=== PATIENT | female | born 1985 | race Caucasian/White ===

== ENCOUNTER 2017-12-04 11:13 | Inpatient (IN) | payer OTHER ==
[2017-12-04 11:30] VITALS: BMI 25.9
--- NOTE | 2017-12-04 12:53 | HP ---
COWS - Scale Resting Pulse: 0= NM 80 or Below Sweatin= Chills/Flushing Restless Observation: 3= Extraneous Movement Pupil Size: 1= Pupils >than Normal Bone or Joint Aches: 2= Severe Diffuse Aches Runny Nose/ Eye Tearin= Nasal Congestion GI Upset > 30mins: 3= Vomiting/Diarrhea Tremor Observation: 2= Slight Tremor Visible Yawning Observation: 2= >3x During Session Anxiety or Irritability: 2=Irritable/Anxious Goose Flesh Skin: 0=Smooth Skin COWS Score: 17 CIWA Score - CIWA Score Nausea/Vomitin Muscle Tremors: 3 Anxiety: 2 Agitation: 2 Paroxysmal Sweats: 1-Minimal Palms Moist Orientation: 0-Oriented Tacttile Disturbances: 1-Very Mild Itch/Numbness Auditory Disturbances: 1-Very Mild Visual Disturbances: 0-None Headache: 2-Mild CIWA-Ar Total Score: 15 Admission ROS [facility] - HPI Chief Complaint: i need help eot stop using heroin and alcohol Allergies/Adverse Reactions: Allergies Allergy/AdvReac Type Severity Reaction Status Date / Time Fish Containing Products Allergy Severe Difficulty Verified 12/04/17 11:30 Breathing History of Present Illness: this 32 years old female with heroin and alcohol dependence,seeking detox, withdrawal symptom,last detox 2017 completed multiple admissions in the past ptsd,anxiety,depression nicotine dependence seizure last 2012 longest period of sobriety 5 years weight loss history of pulmonary embolism ,no medication - Ebola screening Have you traveled outside of the country in the last 21 days: No Have you had contact with anyone from an Ebola affected area: No Have you been sick,other than usual withdrawal symptoms: No Do you have a fever: No - Review of Systems Constitutional: Chills, Loss of Appetite, Malaise, Night Sweats, Changes in sleep, Unintentional Wgt. Loss EENT: reports: Tearing, Nose Congestion Respiratory: reports: No Symptoms reported Cardiac: reports: No Symptoms Reported GI: reports: Diarrhea, Nausea, Vomiting, Abdominal cramping : reports: No Symptoms Reported Musculoskeletal: reports: Back Pain, Joint Pain, Muscle Pain Integumentary: reports: Dryness Neuro: reports: Headache, Tremors Endocrine: reports: No Symptoms Reported Hematology: reports: No Symptoms Reported Psychiatric: reports: No Sypmtoms Reported, Judgement Intact, Mood/Affect Appropiate, Orientated x3, Anxious, Depressed Patient History - Patient Medical History Hx Anemia: No Hx Asthma: No Hx Chronic Obstructive Pulmonary Disease (COPD): No Hx Cardiac Disorders: No Hx Hypertension: No Hx Seizures: Yes (2002) Hx Dementia: No Hx Diabetes: No Hx Gastrointestinal Disorders: No Hx Genitourinary Disorders: No Hx Sexually Transmitted Disorders: Yes (BACTERIAL VAGINOSIS 2006) Hx Renal Disease (ESRD): No Hx Thyroid Disease: No Hx Human Immunodeficiency Virus (HIV): No (last 2016 negative) Hx Hepatitis C: No Hx Depression: Yes Hx Suicide Attempt: Yes (OVERDOSE IN 2011) Hx Schizophrenia: No Other Medical History: no suicidal,no homicidal, - Patient Surgical History Past Surgical History: No Hx Neurologic Surgery: No Hx Cataract Extraction: No Hx Cardiac Surgery: No Hx Lung Surgery: Yes (HISTORY OF PULMONARY EMBOLISM 2011) Hx Breast Surgery: No Hx Breast Biopsy: No Hx Abdominal Surgery: No Hx Appendectomy: No Hx Cholecystectomy: No Hx Genitourinary Surgery: No Hx Section: No Hx Orthopedic Surgery: Yes (RIGHT FEMORAL FRACTURE 1991at age of 65 years old) Anesthesia Reaction: No - PPD History Previous Implant?: No Implanted On Prior [facility] Admission?: No PPD to be Administered?: Yes - Reproductive History Patient is a Female of Child Bearing Age (11 -55 yrs old): Yes Last Menstrual Period: 11/29/17 Patient : No - Smoking Cessation Smoking history: Current every day smoker Have you smoked in the past 12 months: Yes Aproximately how many cigarettes per day: 10 Cigars Per Day: 0 Hx Chewing Tobacco Use: No Initiated information on smoking cessation: Yes 'Breaking Loose' booklet given: 12/04/17 - Substance & Tx. History Hx Alcohol Use: Yes Hx Substance Use: Yes Substance Use Type: Alcohol, Cocaine, Heroin, Marijuana Hx Substance Use Treatment: Yes (02/23 [facility] completed) - Substances Abused Heroin Route: Inhalation Frequency: Daily Amount used: 8-10 bags Age of first use: 25 Date of Last Use: 12/04/17 Cocaine Route: Inhalation Frequency: 3-6 times per week Amount used: $20 BAG Age of first use: 18 Date of Last Use: 12/02/17 Marijuana/Hashish Route: Smoking Frequency: 1-3 times last 30 days Amount used: 1 JOINT Age of first use: 15 Date of Last Use: 11/27/17 Alcohol Route: Oral Frequency: 3-6 times per week Amount used: 1 PINT OF RUM Age of first use: 13 Date of Last Use: 12/02/17 Family Disease History - Family Disease History Family History: Denies Admission Physical Exam [facility] - Vital Signs Vital Signs: Vital Signs - 24 hr 12/04/17 11:25 Temperature 98.9 F Pulse Rate 62 Respiratory 19 Rate Blood Pressure 103/71 - Physical General Appearance: Yes: Moderate Distress, Tremorous, Irritable, Sweating, Anxious HEENTM: Yes: Normal ENT Inspection, KARL, Pharynx Normal Respiratory: Yes: Lungs Clear, Normal Breath Sounds, No Respiratory Distress Neck: Yes: Within Normal Limits, Supple, Trachea in good position Breast: Yes: Breast Exam Deferred Cardiology: Yes: Within Normal Limits, Regular Rhythm, Regular Rate, S1, S2 Abdominal: Yes: Within Normal Limits, Normal Bowel Sounds, Flat, Soft Genitourinary: Yes: Within Normal Limits Back: Yes: Within Normal Limits, Normal Inspection, Muscle Spasm Musculoskeletal: Yes: full range of Motion, Back pain, Muscle Pain Extremities: Yes: Within Normal Limits, Normal Range of Motion, Tremors Neurological: Yes: Within Normal Limits, environmental services manager II-XII NML intact, Alert, Motor Strength 5/5 Integumentary: Yes: Dry Lymphatic: Yes: Within Normal Limits - Diagnostic (1) Opioid dependence with withdrawal Current Visit: Yes Status: Acute (2) Cocaine dependence Current Visit: Yes Status: Acute (3) Alcohol dependence with uncomplicated withdrawal Current Visit: Yes Status: Acute (4) Cannabis abuse Current Visit: Yes Status: Acute (5) Nicotine dependence Current Visit: Yes Status: Acute (6) Anxiety and depression Current Visit: Yes Status: Acute (7) PTSD (post-traumatic stress disorder) Current Visit: Yes Status: Acute (8) History of pulmonary embolism Current Visit: Yes Status: Acute (9) Weight loss Current Visit: Yes Status: Acute Cleared for Admission [facility] - Detox or Rehab [facility] Level of Care: Medically Managed Detox Regimen/Protocol: Methadone/Librium [facility] Breath Alcohol Content Breath Alcohol Content: 0 Urine Pregancy Test - Result Urine Test Results: Negative- NO Line Present Urine Drug Screen - Results Drug Screen Negative: No Urine Drug Screen Results: KIKE-Cocaine, OPI-Opiates
[2017-12-04] MEDS ORDERED: MAGNESIUM HYDROX 2400MG/30ML ORAL SUSPENSION 30 ML CUP PO PRN (13:11)
[2017-12-04] MEDS ORDERED: MAGNESIUM CITRATE 300 ML BOTTLE PO PRN (13:11)
[2017-12-04] MEDS ORDERED: MAG HYDROX/AL HYDROX/SIMETH 30 ML UNIT-DOSE CUP PO PRN (13:11)
[2017-12-04] MEDS ORDERED: guaiFENesin/D-METHORPHAN HB 10 ML UNIT-DOSE CUPS PO PRN (13:11)
[2017-12-04] MEDS ORDERED: IBUPROFEN 400 MG TABLET (FP) PO PRN (13:11)
[2017-12-04] MEDS ORDERED: chlordiazePOXIDE HCL 25 MG CAPSULE PO PRN (13:11)
[2017-12-04] MEDS ORDERED: P-EPHED 60MG/TRIPROLIDI 2.5MG TABLET PO PRN (13:11)
[2017-12-04] MEDS ORDERED: MENTHOL/PHENOL 1 EACH UD MM PRN (13:11)
[2017-12-04] MEDS ORDERED: LOPERAMIDE HCL 2 MG CAPSULE PO PRN (13:11)
[2017-12-04] MEDS ORDERED: METHADONE HCL 10 MG TABLET (FOR DETOX USE ONLY) PO ONE ×2 (14:10→23:00)
[2017-12-04] MEDS: chlordiazePOXIDE HCL 25 MG CAPSULE PO SCH ×2 (17:03→22:19)
[2017-12-04 17:26] LABS: URINE APPEARANCE SLCLOUDY; URINE BILIRUBIN NEGATIVE (<2.0 mg/dL); URINE COLOR YELLOW; URINE GLUCOSE (UA) NEGATIVE (NEGATIVE); URINE KETONE NEGATIVE (NEGATIVE); URINE LEUK ESTERASE NEGATIVE (NEGATIVE); URINE NITRITE NEGATIVE (NEGATIVE); URINE PROTEIN NEGATIVE (NEGATIVE); URINE UROBILINOGEN NEGATIVE mg/dL (0.2-1.0)
[2017-12-04] MEDS: MELATONIN 5 MG TABLETS PO PRN (22:19)
[2017-12-04] MEDS: cloNIDine HCL 0.1 MG TABLET PO SCH (22:19)
[2017-12-04] MEDS: THIAMINE HCL 100 MG TABLET (FP) PO SCH (22:19)
[2017-12-05] MEDS: chlordiazePOXIDE HCL 25 MG CAPSULE PO SCH ×4 (05:47→22:14)
[2017-12-05] MEDS ORDERED: METHADONE HCL 10 MG TABLET (FOR DETOX USE ONLY) PO SCH (10:00)
[2017-12-05 10:09] LABS: HEMOGLOBIN 13.9 GM/dL (10.7-15.3); MCHC 33.3 g/dl (32.0-36.0); RDW 13.5 % (11.6-15.6)
[2017-12-05 10:12] LABS: HEMATOCRIT 41.9 % (32.4-45.2); MCH 31.9 pg (25.7-33.7); MEAN CELL VOLUME 95.8 fl (80-96); MEAN PLT VOLUME 9.3 fl (7.5-11.1); PLATELET COUNT 302 K/MM3 (134-434); RBC 4.37 M/mm3 (3.60-5.2); WHITE BLOOD COUNT 6.5 K/mm3 (4.0-10.0)
[2017-12-05 10:28] LABS: ALBUMIN 3.7 g/dl (3.4-5.0); ALK PHOS 92 U/L (45-117); ANION GAP 9 MMOL/L (8-16); BILIRUBIN,TOTAL 0.2 mg/dL (0.2-1); BLOOD UREA NITROGEN 10 mg/dL (7-18); CHLORIDE 106 mmol/L (98-107); CO2 25 mmol/L (21-32); CREATININE 0.6 mg/dL (0.55-1.3); GLUCOSE,RANDOM 90 mg/dL (74-106); POTASSIUM 4.3 mmol/L (3.5-5.1); SGOT/AST 16 U/L (15-37); SGPT/ALT 24 U/L (13-61); SODIUM 140 mmol/L (136-145); TOT PROT 7.3 g/dl (6.4-8.2)
[2017-12-05] MEDS: PRENATAL VITAMINS W/ FOLIC ACID TABLET (FP) PO SCH (10:45)
[2017-12-05] MEDS: cloNIDine HCL 0.1 MG TABLET PO SCH ×2 (10:45→22:14)
--- NOTE | 2017-12-05 11:14 | EKG ---
Test Reason : Blood Pressure : / mmHG Vent. Rate : 063 BPM Atrial Rate : 063 BPM P-R Int : 122 ms QRS Dur : 086 ms QT Int : 410 ms P-R-T Axes : 073 065 039 degrees QTc Int : 419 ms NORMAL SINUS RHYTHM RIGHT ATRIAL ENLARGEMENT BORDERLINE ECG NO PREVIOUS ECGS AVAILABLE Confirmed by EARNESTINE MONZON, GAVIN ([id number]) on 12/05/2017 11:14:23 AM Referred By: Confirmed By:GAVIN COLBY MD
[2017-12-05] MEDS ORDERED: PNEUMOC 13-VAL CONJ-DIP CRM/PF 0.5 ML DISP.SYRIN IM ONE (12:00)
[2017-12-05] MEDS ORDERED: FLU VACCINE QUAD 60 MCG/0.5 ML (MDV 18-19) IM ONE (12:00)
[2017-12-05] MEDS ORDERED: PNEUMOCOCCAL 23 VACCINE 0.5 ML VIAL IM ONE (12:00)
--- NOTE | 2017-12-05 12:10 | PN ---
[facility] CIWA - CIWA Score Nausea/Vomitin-No Nausea/No Vomiting Muscle Tremors: 4-Moderate,w/Arms Extend Anxiety: 3 Agitation: 3 Paroxysmal Sweats: 3 Orientation: 0-Oriented Tacttile Disturbances: 0-None Auditory Disturbances: 0-None Visual Disturbances: 0-None Headache: 0-None Present CIWA-Ar Total Score: 13 [facility] COWS - Scale Resting Pulse: 0= AR 80 or Below Sweatin=Flushed/Facial Moisture Restless Observation: 1= Difficult to Sit Still Pupil Size: 0= Normal to Room Light Bone or Joint Aches: 2= Severe Diffuse Aches Runny Nose/ Eye Tearin= Runny Nose/Eyes GI Upset > 30mins: 2= Nausea/Diarrhea Tremor Observation of Outstretched Hands: 2= Slight Tremor Visible Yawning Observation: 2= >3x During Session Anxiety or Irritability: 2=Irritable/Anxious Goose Flesh Skin: 0=Smooth Skin COWS Score: 15 [facility] Progress Note (SOAP) Subjective: agitation sweats body aches interrupted sleep irritable nausea Objective: 12/05/17 12:09 Vital Signs Temperature 97.3 F L 12/05/17 09:35 Pulse Rate 57 L 12/05/17 09:35 Respiratory Rate 16 12/05/17 09:35 Blood Pressure 107/73 12/05/17 09:35 O2 Sat by Pulse Oximetry (%) Laboratory Tests 12/04/17 12/05/17 12/05/17 15:00 06:00 06:00 WBC 6.5 RBC 4.37 Hgb 13.9 Hct 41.9 MCV 95.8 MCH 31.9 MCHC 33.3 RDW 13.5 Plt Count 302 MPV 9.3 Sodium 140 Potassium 4.3 Chloride 106 Carbon Dioxide 25 Anion Gap 9 BUN 10 Creatinine 0.6 Creat Clearance w eGFR > 60 Random Glucose 90 Calcium 9.0 Total Bilirubin 0.2 AST 16 ALT 24 Alkaline Phosphatase 92 Total Protein 7.3 Albumin 3.7 Urine Color Yellow Urine Appearance Slcloudy Urine pH 5.0 Ur Specific [place] 1.017 Urine Protein Negative Urine Glucose (UA) Negative Urine Ketones Negative Urine Blood Negative Urine Nitrite Negative Urine Bilirubin Negative Urine Urobilinogen Negative Ur Leukocyte Esterase Negative aaox3 ambulating no acute distress Assessment: 12/05/17 12:09 withdrawal sx Plan: continue detox increase fluids
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
[2017-12-05] MEDS: SERTRALINE HCL 25 MG TABLET (FP) PO SCH (13:42)
[2017-12-05] MEDS: CYCLOBENZAPRINE HCL 10 MG TABLET (FP) PO PRN (15:00)
[2017-12-05] MEDS: QUEtiapine FUMARATE 50 MG TABLET PO SCH (22:14)
[2017-12-05] MEDS: THIAMINE HCL 100 MG TABLET (FP) PO SCH (22:14)
[2017-12-06] MEDS: chlordiazePOXIDE HCL 25 MG CAPSULE PO SCH ×2 (06:04→10:38)
[2017-12-06] MEDS: METHADONE HCL 5 MG TABLET (FOR DETOX USE ONLY) PO SCH (10:37)
[2017-12-06] MEDS: PRENATAL VITAMINS W/ FOLIC ACID TABLET (FP) PO SCH (10:38)
[2017-12-06] MEDS: SERTRALINE HCL 25 MG TABLET (FP) PO SCH (10:38)
[2017-12-06] MEDS: cloNIDine HCL 0.1 MG TABLET PO SCH ×2 (10:38→22:19)
--- NOTE | 2017-12-06 14:34 | PN ---
[facility] CIWA - CIWA Score Nausea/Vomitin-Mild Nausea/No Vomiting Muscle Tremors: 2 Anxiety: 3 Agitation: 3 Paroxysmal Sweats: 2 Orientation: 0-Oriented Tacttile Disturbances: 1-Very Mild Itch/Numbness Auditory Disturbances: 0-None Visual Disturbances: 0-None Headache: 0-None Present CIWA-Ar Total Score: 12 [facility] COWS - Scale Resting Pulse: 1= HI 81-100 Sweatin= Chills/Flushing Restless Observation: 1= Difficult to Sit Still Pupil Size: 0= Normal to Room Light Bone or Joint Aches: 1= Mild Discomfort Runny Nose/ Eye Tearin= Runny Nose/Eyes GI Upset > 30mins: 1= Stomach Cramp Tremor Observation of Outstretched Hands: 1= Tremor [place], Not Seen Yawning Observation: 2= >3x During Session Anxiety or Irritability: 2=Irritable/Anxious Goose Flesh Skin: 0=Smooth Skin COWS Score: 12 [facility] Progress Note (SOAP) Subjective: abdominal cramps, sweats, chills, constipation, last BM three days ago. Objective: 12/06/17 14:32 Vital Signs Temperature 98.2 F 12/06/17 13:22 Pulse Rate 83 12/06/17 13:22 Respiratory Rate 18 12/06/17 13:22 Blood Pressure 103/65 12/06/17 13:22 O2 Sat by Pulse Oximetry (%) Laboratory Last Values WBC 6.5 K/mm3 (4.0-10.0) 12/05/17 06:00 RBC 4.37 M/mm3 (3.60-5.2) 12/05/17 06:00 Hgb 13.9 GM/dL (10.7-15.3) 12/05/17 06:00 Hct 41.9 % (32.4-45.2) 12/05/17 06:00 MCV 95.8 fl (80-96) 12/05/17 06:00 MCH 31.9 pg (25.7-33.7) 12/05/17 06:00 MCHC 33.3 g/dl (32.0-36.0) 12/05/17 06:00 RDW 13.5 % (11.6-15.6) 12/05/17 06:00 Plt Count 302 K/MM3 (134-434) 12/05/17 06:00 MPV 9.3 fl (7.5-11.1) 12/05/17 06:00 Sodium 140 mmol/L (136-145) 12/05/17 06:00 Potassium 4.3 mmol/L (3.5-5.1) 12/05/17 06:00 Chloride 106 mmol/L (98-107) 12/05/17 06:00 Carbon Dioxide 25 mmol/L (21-32) 12/05/17 06:00 Anion Gap 9 MMOL/L (8-16) 12/05/17 06:00 BUN 10 mg/dL (7-18) 12/05/17 06:00 Creatinine 0.6 mg/dL (0.55-1.3) 12/05/17 06:00 Creat Clearance w eGFR > 60 (>60) 12/05/17 06:00 Random Glucose 90 mg/dL (74-106) 12/05/17 06:00 Calcium 9.0 mg/dL (8.5-10.1) 12/05/17 06:00 Total Bilirubin 0.2 mg/dL (0.2-1) 12/05/17 06:00 AST 16 U/L (15-37) 12/05/17 06:00 ALT 24 U/L (13-61) 12/05/17 06:00 Alkaline Phosphatase 92 U/L (45-117) 12/05/17 06:00 Total Protein 7.3 g/dl (6.4-8.2) 12/05/17 06:00 Albumin 3.7 g/dl (3.4-5.0) 12/05/17 06:00 Urine Color Yellow 12/04/17 15:00 Urine Appearance Slcloudy 12/04/17 15:00 Urine pH 5.0 (5.0-8.0) 12/04/17 15:00 Ur Specific [place] 1.017 (1.001-1.035) 12/04/17 15:00 Urine Protein Negative (NEGATIVE) 12/04/17 15:00 Urine Glucose (UA) Negative (NEGATIVE) 12/04/17 15:00 Urine Ketones Negative (NEGATIVE) 12/04/17 15:00 Urine Blood Negative (NEGATIVE) 12/04/17 15:00 Urine Nitrite Negative (NEGATIVE) 12/04/17 15:00 Urine Bilirubin Negative (<2.0 mg/dL) 12/04/17 15:00 Urine Urobilinogen Negative mg/dL (0.2-1.0) 12/04/17 15:00 Ur Leukocyte Esterase Negative (NEGATIVE) 12/04/17 15:00 RPR Titer Nonreactive (NONREACTIVE) 12/05/17 06:00 Assessment: 12/06/17 14:33 Aox3 no distress, anxious no adventitious breath sounds ABD non-tender non-distended full ROM ambulating in the unit withdrawal sx constipation Plan: increase po fluids ambulate MOM continue detox continue to monitor
[2017-12-06] MEDS: ACETAMINOPHEN 325 MG TABLET (FP) PO PRN (17:18)
[2017-12-06] MEDS: chlordiazePOXIDE 5 MG CAPSULE PO SCH ×2 (17:18→22:19)
[2017-12-06] MEDS: CYCLOBENZAPRINE HCL 10 MG TABLET (FP) PO PRN (22:19)
[2017-12-06] MEDS: THIAMINE HCL 100 MG TABLET (FP) PO SCH (22:20)
[2017-12-06] MEDS: MELATONIN 5 MG TABLETS PO PRN (22:20)
[2017-12-06] MEDS: QUEtiapine FUMARATE 50 MG TABLET PO SCH (22:20)
[2017-12-07] MEDS: chlordiazePOXIDE 5 MG CAPSULE PO SCH ×2 (07:18→10:30)
[2017-12-07] MEDS: SERTRALINE HCL 25 MG TABLET (FP) PO SCH (10:30)
[2017-12-07] MEDS: METHADONE HCL 5 MG TABLET (FOR DETOX USE ONLY) PO SCH (10:30)
[2017-12-07] MEDS: cloNIDine HCL 0.1 MG TABLET PO SCH ×2 (10:30→22:23)
[2017-12-07] MEDS: PRENATAL VITAMINS W/ FOLIC ACID TABLET (FP) PO SCH (10:30)
--- NOTE | 2017-12-07 14:10 | PN ---
[facility] Progress Note (SOAP) Subjective: tremor sweat gi distress trouble sleep at night restlessness body ache Objective: 12/07/17 14:09 Vital Signs Temperature 97.9 F 12/07/17 11:19 Pulse Rate 68 12/07/17 11:19 Respiratory Rate 16 12/07/17 11:19 Blood Pressure 103/68 12/07/17 11:19 O2 Sat by Pulse Oximetry (%) Laboratory Last Values WBC 6.5 K/mm3 (4.0-10.0) 12/05/17 06:00 RBC 4.37 M/mm3 (3.60-5.2) 12/05/17 06:00 Hgb 13.9 GM/dL (10.7-15.3) 12/05/17 06:00 Hct 41.9 % (32.4-45.2) 12/05/17 06:00 MCV 95.8 fl (80-96) 12/05/17 06:00 MCH 31.9 pg (25.7-33.7) 12/05/17 06:00 MCHC 33.3 g/dl (32.0-36.0) 12/05/17 06:00 RDW 13.5 % (11.6-15.6) 12/05/17 06:00 Plt Count 302 K/MM3 (134-434) 12/05/17 06:00 MPV 9.3 fl (7.5-11.1) 12/05/17 06:00 Sodium 140 mmol/L (136-145) 12/05/17 06:00 Potassium 4.3 mmol/L (3.5-5.1) 12/05/17 06:00 Chloride 106 mmol/L (98-107) 12/05/17 06:00 Carbon Dioxide 25 mmol/L (21-32) 12/05/17 06:00 Anion Gap 9 MMOL/L (8-16) 12/05/17 06:00 BUN 10 mg/dL (7-18) 12/05/17 06:00 Creatinine 0.6 mg/dL (0.55-1.3) 12/05/17 06:00 Creat Clearance w eGFR > 60 (>60) 12/05/17 06:00 Random Glucose 90 mg/dL (74-106) 12/05/17 06:00 Calcium 9.0 mg/dL (8.5-10.1) 12/05/17 06:00 Total Bilirubin 0.2 mg/dL (0.2-1) 12/05/17 06:00 AST 16 U/L (15-37) 12/05/17 06:00 ALT 24 U/L (13-61) 12/05/17 06:00 Alkaline Phosphatase 92 U/L (45-117) 12/05/17 06:00 Total Protein 7.3 g/dl (6.4-8.2) 12/05/17 06:00 Albumin 3.7 g/dl (3.4-5.0) 12/05/17 06:00 Urine Color Yellow 12/04/17 15:00 Urine Appearance Slcloudy 12/04/17 15:00 Urine pH 5.0 (5.0-8.0) 12/04/17 15:00 Ur Specific [place] 1.017 (1.001-1.035) 12/04/17 15:00 Urine Protein Negative (NEGATIVE) 12/04/17 15:00 Urine Glucose (UA) Negative (NEGATIVE) 12/04/17 15:00 Urine Ketones Negative (NEGATIVE) 12/04/17 15:00 Urine Blood Negative (NEGATIVE) 12/04/17 15:00 Urine Nitrite Negative (NEGATIVE) 12/04/17 15:00 Urine Bilirubin Negative (<2.0 mg/dL) 12/04/17 15:00 Urine Urobilinogen Negative mg/dL (0.2-1.0) 12/04/17 15:00 Ur Leukocyte Esterase Negative (NEGATIVE) 12/04/17 15:00 RPR Titer Nonreactive (NONREACTIVE) 12/05/17 06:00 lab noted Assessment: 12/07/17 14:10 withdrawal sx Plan: continue detox
[2017-12-07] MEDS: hydrOXYzine PAMOATE 50 MG CAPSULE (FP) PO PRN (14:29)
[2017-12-07] MEDS: chlordiazePOXIDE HCL 10 MG CAPSULE PO SCH ×2 (17:44→22:23)
[2017-12-07] MEDS: CYCLOBENZAPRINE HCL 10 MG TABLET (FP) PO PRN (22:23)
[2017-12-07] MEDS: QUEtiapine FUMARATE 50 MG TABLET PO SCH (22:24)
[2017-12-07] MEDS: MELATONIN 5 MG TABLETS PO PRN (22:24)
[2017-12-07] MEDS: THIAMINE HCL 100 MG TABLET (FP) PO SCH (22:24)
[2017-12-08] MEDS: chlordiazePOXIDE HCL 10 MG CAPSULE PO SCH ×2 (06:30→10:24)
[2017-12-08] MEDS ORDERED: METHADONE HCL 10 MG TABLET (FOR DETOX USE ONLY) PO SCH (10:00)
[2017-12-08] MEDS: PRENATAL VITAMINS W/ FOLIC ACID TABLET (FP) PO SCH (10:24)
[2017-12-08] MEDS: SERTRALINE HCL 25 MG TABLET (FP) PO SCH (10:24)
[2017-12-08] MEDS: cloNIDine HCL 0.1 MG TABLET PO SCH ×2 (10:24→22:13)
[2017-12-08] MEDS: ACETAMINOPHEN 325 MG TABLET (FP) PO PRN (10:26)
--- NOTE | 2017-12-08 10:36 | PN ---
[facility] Progress Note (SOAP) Subjective: agitation body aches Objective: 12/08/17 10:35 Vital Signs Temperature 98.2 F 12/08/17 09:26 Pulse Rate 73 12/08/17 09:26 Respiratory Rate 16 12/08/17 09:26 Blood Pressure 110/78 12/08/17 09:26 O2 Sat by Pulse Oximetry (%) aaox3 ambulating no acute distress Assessment: 12/08/17 10:36 mild withdrawals Plan: continue detox increase fluids d/c in am
[2017-12-08] MEDS: hydrOXYzine PAMOATE 50 MG CAPSULE (FP) PO PRN ×2 (13:28→18:54)
[2017-12-08] MEDS: CYCLOBENZAPRINE HCL 10 MG TABLET (FP) PO PRN (22:13)
[2017-12-08] MEDS: QUEtiapine FUMARATE 50 MG TABLET PO SCH (22:13)
[2017-12-08] MEDS: THIAMINE HCL 100 MG TABLET (FP) PO SCH (22:14)
[2017-12-09] MEDS ORDERED: METHADONE HCL 5 MG TABLET (FOR DETOX USE ONLY) PO SCH (06:00)
[2017-12-09 06:35] VITALS: BP 101/65; PULSE 75; TEMP 97.6
--- NOTE | 2017-12-09 09:21 | DS ---
[facility] Detox Discharge Summary Admission Date: 12/04/17 Discharge Date: 12/09/17 - History Present History: Alcohol Dependence, Cannabis Dependence, Cocaine Dependence, Opioid Dependence - Physical Exam Results Vital Signs: Vital Signs Temperature 97.6 F 12/09/17 06:34 Pulse Rate 75 12/09/17 06:34 Respiratory Rate 18 12/09/17 06:34 Blood Pressure 101/65 12/09/17 06:34 O2 Sat by Pulse Oximetry (%) - Treatment Hospital Course: Detox Protocol Followed, Detoxed Safely, Responded well, Discharged Condition Good, Rehab Referral Accepted - Medication Discharge Medications: Ambulatory Orders Escitalopram Oxalate [Lexapro -] 10 mg PO DAILY 12/04/17 Quetiapine Fumarate [Seroquel] 100 mg PO HS 12/04/17 Sertraline HCl [Zoloft -] 25 mg PO DAILY 12/04/17 Quetiapine Fumarate [Seroquel -] 50 mg PO HS #30 tablet 12/05/17 Sertraline HCl [Zoloft -] 25 mg PO DAILY #30 tablet 12/05/17 - Diagnosis (1) Alcohol dependence with uncomplicated withdrawal Status: Chronic (2) Anxiety and depression Status: Acute (3) Cannabis abuse Status: Acute (4) Constipation Status: Acute Qualifiers: Constipation type: unspecified constipation type Qualified Code(s): K59.00 - Constipation, unspecified (5) History of pulmonary embolism Status: Acute (6) Insomnia Status: Acute (7) Opioid dependence with withdrawal Status: Chronic (8) Substance induced mood disorder Status: Acute (9) Weight loss Status: Acute (10) Cannabis dependence Status: Chronic (11) Cocaine dependence Status: Chronic (12) Nicotine dependence Status: Chronic (13) PTSD (post-traumatic stress disorder) Status: Chronic - AMA Did Patient Leave Against Medical Advice: No (going home)
== END 2017-12-09 08:35 | disposition home or self-care (01) | DRG 773 ==
LOC: YASAS 11:13 → Y6N 13:21
PROC: HZ2ZZZZ Detoxification Services for Substance Abuse Treatment (ICD-10-PCS; principal; 2017-12-04)
DX: F11.23 Opioid dependence with withdrawal (principal); F14.23 Cocaine dependence with withdrawal; F12.20 Cannabis dependence, uncomplicated; F17.210 Nicotine dependence, cigarettes, uncomplicated; F41.8 Other specified anxiety disorders; F19.24 Other psychoactive substance dependence with psychoactive substance-induced mood disorder; F43.10 Post-traumatic stress disorder, unspecified; K59.00 Constipation, unspecified; G47.00 Insomnia, unspecified; Z86.69 Personal history of other diseases of the nervous system and sense organs; Z86.711 Personal history of pulmonary embolism; Z87.898 Personal history of other specified conditions; Z91.013 Allergy to seafood; Z87.42 Personal history of other diseases of the female genital tract; Z91.5 Personal history of self-harm
CPT/HCPCS: 36415; 80053; 81003; 85027; 86593; 90688; 90732; 93005; 93010; G0008; G0009; J0735

== ENCOUNTER 2018-01-23 12:24 | Inpatient (IN) | payer OTHER ==
[2018-01-23 12:42] VITALS: BMI 26.1
--- NOTE | 2018-01-23 14:31 | HP ---
COWS - Scale Resting Pulse: 1= [place] 81-100 Sweatin=Flushed/Facial Moisture Restless Observation: 1= Difficult to Sit Still Pupil Size: 0= Normal to Room Light Bone or Joint Aches: 2= Severe Diffuse Aches Runny Nose/ Eye Tearin= Runny Nose/Eyes GI Upset > 30mins: 2= Nausea/Diarrhea Tremor Observation: 0= None Yawning Observation: 1= 1-2x During Session Anxiety or Irritability: 2=Irritable/Anxious Goose Flesh Skin: 0=Smooth Skin COWS Score: 13 CIWA Score - Admission Criteria OAS Guidelines: Admission for Medically Managed Detox: Requires at least one of the followin. CIWA greater than 12 2. Seizures within the past 24 hours 3. Delirium tremens within the past 24 hours 4. Hallucinations within the past 24 hours 5. Acute intervention needed for co occurring medical disorder 6. Acute intervention needed for co occurring psychiatric disorder 7. Severe withdrawal that cannot be handled at a lower level of care (continued vomiting, continued diarrhea, abnormal vital signs) requiring intravenous medication and/or fluids 8. Admission [facility] Chief Complaint: HEROIN WITHDRAWAL SYMPTOMS Allergies/Adverse Reactions: Allergies Allergy/AdvReac Type Severity Reaction Status Date / Time Fish Containing Products Allergy Severe Difficulty Verified 01/23/18 13:42 Breathing History of Present Illness: PATIENT PRESENTS FOR HEROIN WITHDRAWAL SYMPTOMS. THIS IS PATIENTS THIRD ADMISSION TO DETOX. PATIENT STARTED SNIFFING HEROIN AT AGE 22 AND COCAINE AT AGE 18. PATIENT SNIFFS 10 BAGS DAILY OF HEROIN AND 50 DOLLARS OF COCAINE DAILY. LAST TIME SHE USED SUBSTANCES WAS THIS MORNING AT 2AM. PATIENT DENIES SEIZURES, OVERDOSE, FALLS AND BLACKOUTS. PATIENT PMH INCLUDES PTSD, PE AND NICOTINE DEPENDENCE. DENIES SI/HI. +SUICIDE ATTEMPTS BY OVERDOSE OF PILLS IN 2002. Exam Limitations: No Limitations - Ebola screening Have you traveled outside of the country in the last 21 days: No Have you had contact with anyone from an Ebola affected area: No Have you been sick,other than usual withdrawal symptoms: No Do you have a fever: No - Review of Systems Constitutional: Chills, Night Sweats, Changes in sleep, Unexplained wgt Loss EENT: reports: Tearing, Nose Congestion Respiratory: reports: Cough Cardiac: reports: No Symptoms Reported GI: reports: Diarrhea, Nausea, Poor Fluid Intake, Abdominal cramping : reports: No Symptoms Reported Musculoskeletal: reports: Back Pain, Joint Pain, Muscle Pain Integumentary: reports: Erythema, Sweating Neuro: reports: Headache, Tremors Endocrine: reports: Change in Weight Hematology: reports: No Symptoms Reported Psychiatric: reports: Orientated x3, Anxious, Depressed Patient History - Patient Medical History Hx Anemia: No Hx Asthma: No Hx Chronic Obstructive Pulmonary Disease (COPD): No Hx Cancer: No Hx Cardiac Disorders: No Hx Congestive Heart Failure: No Hx Hypertension: No Hx Hypercholesterolemia: No Hx Pacemaker: No HX Cerebrovascular Accident: No Hx Seizures: No Hx Dementia: No Hx Diabetes: No Hx Gastrointestinal Disorders: No Hx Liver Disease: No Hx Genitourinary Disorders: No Hx Sexually Transmitted Disorders: Yes (TRIC TREATED) Hx Renal Disease (ESRD): No Hx Thyroid Disease: No Hx Human Immunodeficiency Virus (HIV): No (last 2016 negative) Hx Hepatitis C: No Hx Depression: Yes Hx Suicide Attempt: Yes (05/30/2017) Hx Bipolar Disorder: No Hx Schizophrenia: No Other Medical History: PE - Patient Surgical History Past Surgical History: No Hx Neurologic Surgery: No Hx Cataract Extraction: No Hx Cardiac Surgery: No Hx Lung Surgery: No (HISTORY OF PULMONARY EMBOLISM 2002) Hx Breast Surgery: No Hx Breast Biopsy: No Hx Abdominal Surgery: No Hx Appendectomy: No Hx Cholecystectomy: No Hx Genitourinary Surgery: No Hx Section: No Hx Orthopedic Surgery: Yes (RIGHT FEMORAL FRACTURE 1991at age of 65 years old) Hx Hysterectomy: No Anesthesia Reaction: No - PPD History Previous Implant?: Yes Documented Results: Negative w/proof Implanted On Prior [facility] Admission?: Yes Date: 12/06/17 PPD to be Administered?: No - Reproductive History Patient is a Female of Child Bearing Age (11 -55 yrs old): Yes Last Menstrual Period: 01/16/18 Patient : No - Smoking Cessation Smoking history: Current every day smoker Have you smoked in the past 12 months: Yes Aproximately how many cigarettes per day: 10 Cigars Per Day: 0 Hx Chewing Tobacco Use: No Initiated information on smoking cessation: Yes 'Breaking Loose' booklet given: 01/23/18 - Substances Abused Heroin Route: Inhalation Frequency: Daily Amount used: 6-8 Bags Age of first use: 22 Date of Last Use: 01/22/18 Cocaine Route: Inhalation Frequency: 1-2 times per week Amount used: $20-30 Age of first use: 18 Date of Last Use: 01/22/18 Alcohol Route: Oral Frequency: 1-2 times per week Amount used: 1 PINT OF DAMIÁN Age of first use: 15 Date of Last Use: 01/22/18 Family Disease History - Family Disease History Family Disease History: Diabetes: Mother (ALIVE), Heart Disease: Father ( PROSTATE CANCER), CA: Father Admission Physical Exam [facility] - Vital Signs Vital Signs: Vital Signs - 24 hr 01/23/18 12:41 Temperature 97.1 F L Pulse Rate 89 Respiratory 18 Rate Blood Pressure 119/74 - Physical General Appearance: Yes: No Apparent Distress, Appropriately Dressed, Tremorous , Sweating, Anxious HEENTM: Yes: EOMI, Hearing grossly Normal, Normocephalic, Normal Voice, KARL, Pharynx Normal, Nasal Congestion Respiratory: Yes: Chest Non-Tender, Lungs Clear, Normal Breath Sounds, No Respiratory Distress, No Accessory Muscle Use Neck: Yes: No masses,lesions,Nodules, Supple Breast: Yes: Breast Exam Deferred Cardiology: Yes: Regular Rhythm, Regular Rate, S1, S2 Abdominal: Yes: Normal Bowel Sounds, Non Tender, Soft Genitourinary: Yes: Within Normal Limits Back: Yes: Muscle Spasm Extremities: Yes: Normal Range of Motion, Non-Tender, Tremors, Swelling Neurological: Yes: cow tester II-XII NML intact, Fully Oriented, Alert, Motor Strength 5/5, Depressed Affect Integumentary: Yes: Normal Color, Warm, Moist Lymphatic: Yes: Within Normal Limits - Diagnostic (1) Anxiety and depression Current Visit: Yes Status: Chronic (2) History of pulmonary embolism Current Visit: Yes Status: Resolved (3) Cocaine dependence Current Visit: Yes Status: Suspected Qualifiers: Substance use status: uncomplicated Qualified Code(s): F14.20 - Cocaine dependence, uncomplicated (4) Nicotine dependence Current Visit: Yes Status: Chronic Qualifiers: Nicotine product type: cigarettes (5) Opioid dependence with withdrawal Current Visit: No Status: Acute Cleared for Admission [facility] - Detox or Rehab [facility] Level of Care: Medically Managed Detox Regimen/Protocol: Methadone [facility] Breath Alcohol Content Breath Alcohol Content: 0 Urine Pregancy Test - Result Urine Test Results: Negative- NO Line Present Urine Drug Screen - Results Drug Screen Negative: No Urine Drug Screen Results: KIKE-Cocaine, OPI-Opiates, FEN-Fentanyl
[2018-01-23] MEDS ORDERED: MAGNESIUM HYDROX 2400MG/30ML ORAL SUSPENSION 30 ML CUP PO PRN (14:41)
[2018-01-23] MEDS ORDERED: MAG HYDROX/AL HYDROX/SIMETH 30 ML UNIT-DOSE CUP PO PRN (14:41)
[2018-01-23] MEDS ORDERED: IBUPROFEN 400 MG TABLET (FP) PO PRN (14:41)
[2018-01-23] MEDS ORDERED: LOPERAMIDE HCL 2 MG CAPSULE PO PRN (14:41)
[2018-01-23] MEDS ORDERED: P-EPHED 60MG/TRIPROLIDI 2.5MG TABLET PO PRN (14:41)
[2018-01-23] MEDS ORDERED: MAGNESIUM CITRATE 300 ML BOTTLE PO PRN (14:41)
[2018-01-23] MEDS ORDERED: guaiFENesin/D-METHORPHAN HB 10 ML UNIT-DOSE CUPS PO PRN (14:41)
[2018-01-23] MEDS ORDERED: MENTHOL/PHENOL 1 EACH UD MM PRN (14:41)
[2018-01-23] MEDS ORDERED: NICOTINE POLACRILEX 2 MG GUM BC PRN (14:41)
[2018-01-23] MEDS ORDERED: diazePAM 5 MG TABLET PO PRN (14:43)
[2018-01-23] MEDS ORDERED: METHADONE HCL 10 MG TABLET (FOR DETOX USE ONLY) PO ONE ×2 (17:45→23:00)
[2018-01-23] MEDS: THIAMINE HCL 100 MG TABLET (FP) PO SCH (22:38)
[2018-01-23] MEDS: MELATONIN 5 MG TABLETS PO PRN (22:40)
[2018-01-24 01:29] LABS: URINE APPEARANCE SLCLOUDY; URINE BILIRUBIN NEGATIVE (<2.0 mg/dL); URINE COLOR DKYELLOW; URINE GLUCOSE (UA) NEGATIVE (NEGATIVE); URINE KETONE NEGATIVE (NEGATIVE); URINE LEUK ESTERASE NEGATIVE (NEGATIVE); URINE NITRITE NEGATIVE (NEGATIVE); URINE PROTEIN NEGATIVE (NEGATIVE); URINE UROBILINOGEN NEGATIVE mg/dL (0.2-1.0)
[2018-01-24] MEDS ORDERED: METHADONE HCL 10 MG TABLET (FOR DETOX USE ONLY) PO ONE (10:00)
[2018-01-24] MEDS: PRENATAL VITAMINS W/ FOLIC ACID TABLET (FP) PO SCH (10:34)
[2018-01-24 10:35] LABS: HEMATOCRIT 41.4 % (32.4-45.2); HEMOGLOBIN 13.2 GM/dL (10.7-15.3); MCH 30.5 pg (25.7-33.7); MCHC 31.9 g/dl (32.0-36.0); MEAN CELL VOLUME 95.5 fl (80-96); MEAN PLT VOLUME 8.7 fl (7.5-11.1); PLATELET COUNT 262 K/MM3 (134-434); RBC 4.33 M/mm3 (3.60-5.2); RDW 14.3 % (11.6-15.6); WHITE BLOOD COUNT 8.3 K/mm3 (4.0-10.0)
[2018-01-24 11:00] LABS: ALBUMIN 3.8 g/dl (3.4-5.0); ALK PHOS 81 U/L (45-117); ANION GAP 6 MMOL/L (8-16); BILIRUBIN,TOTAL 0.5 mg/dL (0.2-1); BLOOD UREA NITROGEN 12 mg/dL (7-18); CALCIUM 8.9 mg/dL (8.5-10.1); CHLORIDE 103 mmol/L (98-107); CO2 28 mmol/L (21-32); CREATININE 0.7 mg/dL (0.55-1.3); GLUCOSE,RANDOM 102 mg/dL (74-106); POTASSIUM 4.3 mmol/L (3.5-5.1); SGOT/AST 29 U/L (15-37); SGPT/ALT 32 U/L (13-61); SODIUM 137 mmol/L (136-145); TOT PROT 7.3 g/dl (6.4-8.2)
--- NOTE | 2018-01-24 13:34 | PN ---
BHS COWS - Scale Resting Pulse: 0= [place] 80 or Below Sweatin= Chills/Flushing Restless Observation: 1= Difficult to Sit Still Pupil Size: 0= Normal to Room Light Bone or Joint Aches: 2= Severe Diffuse Aches Runny Nose/ Eye Tearin= Nasal Congestion GI Upset > 30mins: 2= Nausea/Diarrhea Tremor Observation of Outstretched Hands: 2= Slight Tremor Visible Yawning Observation: 0= None Anxiety or Irritability: 2=Irritable/Anxious Goose Flesh Skin: 0=Smooth Skin COWS Score: 11 S Progress Note (SOAP) Subjective: Interrupted sleep, restlessness and muscle aches Objective: 01/24/18 13:33 Vital Signs 01/24/18 01/24/18 06:00 09:44 Temperature 98.4 F 97.8 F Pulse Rate 68 76 Respiratory 18 18 Rate Blood Pressure 106/66 104/78 Laboratory Last Values WBC 8.3 K/mm3 (4.0-10.0) 01/24/18 05:35 RBC 4.33 M/mm3 (3.60-5.2) 01/24/18 05:35 Hgb 13.2 GM/dL (10.7-15.3) 01/24/18 05:35 Hct 41.4 % (32.4-45.2) 01/24/18 05:35 MCV 95.5 fl (80-96) 01/24/18 05:35 MCH 30.5 pg (25.7-33.7) 01/24/18 05:35 MCHC 31.9 g/dl (32.0-36.0) L 01/24/18 05:35 RDW 14.3 % (11.6-15.6) 01/24/18 05:35 Plt Count 262 K/MM3 (134-434) 01/24/18 05:35 MPV 8.7 fl (7.5-11.1) 01/24/18 05:35 Sodium 137 mmol/L (136-145) 01/24/18 05:35 Potassium 4.3 mmol/L (3.5-5.1) 01/24/18 05:35 Chloride 103 mmol/L (98-107) 01/24/18 05:35 Carbon Dioxide 28 mmol/L (21-32) 01/24/18 05:35 Anion Gap 6 MMOL/L (8-16) L 01/24/18 05:35 BUN 12 mg/dL (7-18) 01/24/18 05:35 Creatinine 0.7 mg/dL (0.55-1.3) 01/24/18 05:35 Creat Clearance w eGFR > 60 (>60) 01/24/18 05:35 Random Glucose 102 mg/dL (74-106) 01/24/18 05:35 Calcium 8.9 mg/dL (8.5-10.1) 01/24/18 05:35 Total Bilirubin 0.5 mg/dL (0.2-1) 01/24/18 05:35 AST 29 U/L (15-37) 01/24/18 05:35 ALT 32 U/L (13-61) 01/24/18 05:35 Alkaline Phosphatase 81 U/L (45-117) 01/24/18 05:35 Total Protein 7.3 g/dl (6.4-8.2) 01/24/18 05:35 Albumin 3.8 g/dl (3.4-5.0) 01/24/18 05:35 Urine Color Dkyellow 01/24/18 01:00 Urine Appearance Slcloudy 01/24/18 01:00 Urine pH 5.0 (5.0-8.0) 01/24/18 01:00 Ur Specific [place] 1.023 (1.010-1.035) 01/24/18 01:00 Urine Protein Negative (NEGATIVE) 01/24/18 01:00 Urine Glucose (UA) Negative (NEGATIVE) 01/24/18 01:00 Urine Ketones Negative (NEGATIVE) 01/24/18 01:00 Urine Blood Negative (NEGATIVE) 01/24/18 01:00 Urine Nitrite Negative (NEGATIVE) 01/24/18 01:00 Urine Bilirubin Negative (<2.0 mg/dL) 01/24/18 01:00 Urine Urobilinogen Negative mg/dL (0.2-1.0) 01/24/18 01:00 Ur Leukocyte Esterase Negative (NEGATIVE) 01/24/18 01:00 RPR Titer Nonreactive (NONREACTIVE) 01/24/18 05:35 Labs noted Alert, no apparent distress Assessment: 01/24/18 13:33 Withdrawal sx Plan: Continue detox
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
[2018-01-24] MEDS: hydrOXYzine PAMOATE 50 MG CAPSULE (FP) PO PRN ×2 (18:20→22:50)
[2018-01-24] MEDS: THIAMINE HCL 100 MG TABLET (FP) PO SCH (22:49)
[2018-01-24] MEDS: QUEtiapine FUMARATE 100 MG TABLET (FP) PO SCH (22:49)
[2018-01-25] MEDS ORDERED: METHADONE HCL 5 MG TABLET (FOR DETOX USE ONLY) PO ONE (10:00)
[2018-01-25] MEDS: PRENATAL VITAMINS W/ FOLIC ACID TABLET (FP) PO SCH (11:15)
[2018-01-25] MEDS: SERTRALINE HCL 25 MG TABLET (FP) PO SCH (11:15)
[2018-01-25] MEDS: hydrOXYzine PAMOATE 50 MG CAPSULE (FP) PO PRN ×2 (11:17→22:26)
--- NOTE | 2018-01-25 12:10 | PN ---
[facility]HS COWS - Scale Resting Pulse: 0= [place] 80 or Below Sweatin= Chills/Flushing Restless Observation: 1= Difficult to Sit Still Pupil Size: 1= Pupils >than Normal Bone or Joint Aches: 2= Severe Diffuse Aches Runny Nose/ Eye Tearin= Nasal Congestion GI Upset > 30mins: 1= Stomach Cramp Tremor Observation of Outstretched Hands: 1= Tremor [place], Not Seen Yawning Observation: 1= 1-2x During Session Anxiety or Irritability: 1=Feels Anxious/Irritable Goose Flesh Skin: 0=Smooth Skin COWS Score: 10 S Progress Note (SOAP) Subjective: body aches muscle cramp sweat tremor restlessness Objective: 01/25/18 12:09 Vital Signs Temperature 97.9 F 01/25/18 10:23 Pulse Rate 63 01/25/18 10:23 Respiratory Rate 18 01/25/18 10:23 Blood Pressure 125/83 01/25/18 10:23 O2 Sat by Pulse Oximetry (%) Laboratory Last Values WBC 8.3 K/mm3 (4.0-10.0) 01/24/18 05:35 RBC 4.33 M/mm3 (3.60-5.2) 01/24/18 05:35 Hgb 13.2 GM/dL (10.7-15.3) 01/24/18 05:35 Hct 41.4 % (32.4-45.2) 01/24/18 05:35 MCV 95.5 fl (80-96) 01/24/18 05:35 MCH 30.5 pg (25.7-33.7) 01/24/18 05:35 MCHC 31.9 g/dl (32.0-36.0) L 01/24/18 05:35 RDW 14.3 % (11.6-15.6) 01/24/18 05:35 Plt Count 262 K/MM3 (134-434) 01/24/18 05:35 MPV 8.7 fl (7.5-11.1) 01/24/18 05:35 Sodium 137 mmol/L (136-145) 01/24/18 05:35 Potassium 4.3 mmol/L (3.5-5.1) 01/24/18 05:35 Chloride 103 mmol/L (98-107) 01/24/18 05:35 Carbon Dioxide 28 mmol/L (21-32) 01/24/18 05:35 Anion Gap 6 MMOL/L (8-16) L 01/24/18 05:35 BUN 12 mg/dL (7-18) 01/24/18 05:35 Creatinine 0.7 mg/dL (0.55-1.3) 01/24/18 05:35 Creat Clearance w eGFR > 60 (>60) 01/24/18 05:35 Random Glucose 102 mg/dL (74-106) 01/24/18 05:35 Calcium 8.9 mg/dL (8.5-10.1) 01/24/18 05:35 Total Bilirubin 0.5 mg/dL (0.2-1) 01/24/18 05:35 AST 29 U/L (15-37) 01/24/18 05:35 ALT 32 U/L (13-61) 01/24/18 05:35 Alkaline Phosphatase 81 U/L (45-117) 01/24/18 05:35 Total Protein 7.3 g/dl (6.4-8.2) 01/24/18 05:35 Albumin 3.8 g/dl (3.4-5.0) 01/24/18 05:35 Urine Color Dkyellow 01/24/18 01:00 Urine Appearance Slcloudy 01/24/18 01:00 Urine pH 5.0 (5.0-8.0) 01/24/18 01:00 Ur Specific [place] 1.023 (1.010-1.035) 01/24/18 01:00 Urine Protein Negative (NEGATIVE) 01/24/18 01:00 Urine Glucose (UA) Negative (NEGATIVE) 01/24/18 01:00 Urine Ketones Negative (NEGATIVE) 01/24/18 01:00 Urine Blood Negative (NEGATIVE) 01/24/18 01:00 Urine Nitrite Negative (NEGATIVE) 01/24/18 01:00 Urine Bilirubin Negative (<2.0 mg/dL) 01/24/18 01:00 Urine Urobilinogen Negative mg/dL (0.2-1.0) 01/24/18 01:00 Ur Leukocyte Esterase Negative (NEGATIVE) 01/24/18 01:00 RPR Titer Nonreactive (NONREACTIVE) 01/24/18 05:35 lab noted Assessment: 01/25/18 12:10 withdrawal sx Plan: continue detox
[2018-01-25] MEDS: ACETAMINOPHEN 325 MG TABLET (FP) PO PRN (16:33)
[2018-01-25] MEDS: THIAMINE HCL 100 MG TABLET (FP) PO SCH (22:25)
[2018-01-25] MEDS: QUEtiapine FUMARATE 100 MG TABLET (FP) PO SCH (22:25)
[2018-01-26] MEDS ORDERED: METHADONE HCL 5 MG TABLET (FOR DETOX USE ONLY) PO ONE (10:00)
[2018-01-26] MEDS: PRENATAL VITAMINS W/ FOLIC ACID TABLET (FP) PO SCH (10:37)
[2018-01-26] MEDS: SERTRALINE HCL 25 MG TABLET (FP) PO SCH (10:37)
--- NOTE | 2018-01-26 10:42 | PN ---
BHS Progress Note (SOAP) Subjective: sweats shakes nasal congestion stomach cramping body aches Objective: 01/26/18 10:41 Vital Signs Temperature 98.1 F 01/26/18 09:32 Pulse Rate 81 01/26/18 09:32 Respiratory Rate 16 01/26/18 09:32 Blood Pressure 104/71 01/26/18 09:32 O2 Sat by Pulse Oximetry (%) aaox3 ambulating no acute distress Assessment: 01/26/18 10:43 withdrawal sx Plan: continue detox increase fluids
[2018-01-26] MEDS: ACETAMINOPHEN 325 MG TABLET (FP) PO PRN (20:25)
[2018-01-26] MEDS: hydrOXYzine PAMOATE 50 MG CAPSULE (FP) PO PRN (20:28)
[2018-01-26] MEDS: QUEtiapine FUMARATE 100 MG TABLET (FP) PO SCH (22:11)
[2018-01-26] MEDS: MELATONIN 5 MG TABLETS PO PRN (22:11)
[2018-01-26] MEDS: THIAMINE HCL 100 MG TABLET (FP) PO SCH (22:11)
--- NOTE | 2018-01-26 23:56 | EKG ---
Test Reason : Blood Pressure : / mmHG Vent. Rate : 066 BPM Atrial Rate : 066 BPM P-R Int : 116 ms QRS Dur : 088 ms QT Int : 408 ms P-R-T Axes : 072 059 042 degrees QTc Int : 427 ms NORMAL SINUS RHYTHM RIGHT ATRIAL ENLARGEMENT BORDERLINE ECG WHEN COMPARED WITH ECG OF 04-DEC-2017 16:38, NO SIGNIFICANT CHANGE WAS FOUND Confirmed by BRAD GARZA MD ([id number]) on 01/26/2018 11:55:22 PM Referred By: Confirmed By:BRAD GARZA MD
[2018-01-27] MEDS ORDERED: METHADONE HCL 10 MG TABLET (FOR DETOX USE ONLY) PO ONE (10:00)
[2018-01-27] MEDS: PRENATAL VITAMINS W/ FOLIC ACID TABLET (FP) PO SCH (10:13)
[2018-01-27] MEDS: SERTRALINE HCL 25 MG TABLET (FP) PO SCH (10:13)
[2018-01-27] MEDS: hydrOXYzine PAMOATE 50 MG CAPSULE (FP) PO PRN ×2 (10:14→17:23)
--- NOTE | 2018-01-27 11:39 | PN ---
BHS Progress Note (SOAP) Subjective: chills sweats Objective: 01/27/18 11:38 Vital Signs Temperature 98.2 F 01/27/18 09:47 Pulse Rate 74 01/27/18 09:47 Respiratory Rate 18 01/27/18 09:47 Blood Pressure 105/71 01/27/18 09:47 O2 Sat by Pulse Oximetry (%) aaox3 ambulating no acute distress Assessment: 01/27/18 11:39 withdrawal sx Plan: continue detox increase fluids d/c in am
[2018-01-27] MEDS: ACETAMINOPHEN 325 MG TABLET (FP) PO PRN (17:20)
[2018-01-27 21:20] VITALS: PULSE 62
[2018-01-27] MEDS: THIAMINE HCL 100 MG TABLET (FP) PO SCH (22:10)
[2018-01-27] MEDS: QUEtiapine FUMARATE 100 MG TABLET (FP) PO SCH (22:10)
[2018-01-27] MEDS: MELATONIN 5 MG TABLETS PO PRN (22:11)
[2018-01-28] MEDS ORDERED: METHADONE HCL 5 MG TABLET (FOR DETOX USE ONLY) PO ONE (06:00)
[2018-01-28] MEDS: hydrOXYzine PAMOATE 50 MG CAPSULE (FP) PO PRN (06:46)
[2018-01-28 08:24] VITALS: BP 92/64; TEMP 98.2
--- NOTE | 2018-01-28 08:38 | DS ---
[facility] Detox Discharge Summary Admission Date: 01/23/18 Discharge Date: 01/28/18 - History Present History: Alcohol Dependence, Cannabis Dependence, Cocaine Dependence - Physical Exam Results Vital Signs: Vital Signs Temperature 98.2 F 01/28/18 08:23 Pulse Rate 62 01/28/18 08:23 Respiratory Rate 18 01/28/18 08:23 Blood Pressure 92/64 01/28/18 08:23 O2 Sat by Pulse Oximetry (%) - Treatment Hospital Course: Detox Protocol Followed, Detoxed Safely, Responded well, Discharged Condition Good, Rehab Referral Accepted - Medication Discharge Medications: Ambulatory Orders Sertraline HCl [Zoloft -] 25 mg PO DAILY #30 tablet 12/05/17 Quetiapine Fumarate [Seroquel] 100 mg PO HS #30 tablet 01/27/18 hydrOXYzine PAMOATE [Vistaril -] 50 mg PO Q4H PRN #30 capsule 01/27/18 - Diagnosis (1) Alcohol dependence with uncomplicated withdrawal Current Visit: Yes Status: Chronic (2) Cocaine dependence Current Visit: Yes Status: Chronic Qualifiers: Substance use status: uncomplicated Qualified Code(s): F14.20 - Cocaine dependence, uncomplicated (3) Insomnia Current Visit: Yes Status: Acute (4) Nicotine dependence Current Visit: Yes Status: Acute Qualifiers: Nicotine product type: cigarettes Substance use status: uncomplicated Qualified Code(s): F17.210 - Nicotine dependence, cigarettes, uncomplicated (5) Opioid dependence with withdrawal Current Visit: Yes Status: Chronic (6) Substance induced mood disorder Current Visit: Yes Status: Acute (7) Anxiety and depression Current Visit: Yes Status: Chronic (8) PTSD (post-traumatic stress disorder) Current Visit: Yes Status: Chronic (9) History of pulmonary embolism Current Visit: Yes Status: Resolved (10) Cannabis abuse Current Visit: No Status: Acute (11) Constipation Current Visit: No Status: Acute Qualifiers: Constipation type: unspecified constipation type Qualified Code(s): K59.00 - Constipation, unspecified (12) Weight loss Current Visit: No Status: Acute (13) Cannabis dependence Current Visit: No Status: Chronic - AMA Did Patient Leave Against Medical Advice: No (going home.)
== END 2018-01-28 08:36 | disposition home or self-care (01) | DRG 773 ==
LOC: YASAS 12:24 → Y6N 17:26
PROC: HZ2ZZZZ Detoxification Services for Substance Abuse Treatment (ICD-10-PCS; principal; 2018-01-23)
DX: F11.23 Opioid dependence with withdrawal (principal); F10.230 Alcohol dependence with withdrawal, uncomplicated; F14.20 Cocaine dependence, uncomplicated; F12.20 Cannabis dependence, uncomplicated; F17.210 Nicotine dependence, cigarettes, uncomplicated; F19.24 Other psychoactive substance dependence with psychoactive substance-induced mood disorder; F43.10 Post-traumatic stress disorder, unspecified; F41.8 Other specified anxiety disorders; F32.9 Major depressive disorder, single episode, unspecified; G47.00 Insomnia, unspecified; K59.00 Constipation, unspecified; R63.4 Abnormal weight loss; Z68.26 Body mass index [BMI] 26.0-26.9, adult; Z86.19 Personal history of other infectious and parasitic diseases; Z91.5 Personal history of self-harm; Z86.711 Personal history of pulmonary embolism
CPT/HCPCS: 36415; 80053; 81003; 85027; 86593; 93005; 93010

== ENCOUNTER 2018-06-21 09:34 | Inpatient (IN) | payer OTHER ==
[2018-06-21 10:46] VITALS: BMI 25.0
--- NOTE | 2018-06-21 11:20 | HP ---
COWS - Scale Resting Pulse: 1= OK 81-100 Sweatin= Chills/Flushing Restless Observation: 3= Extraneous Movement Pupil Size: 1= Pupils >than Normal Bone or Joint Aches: 2= Severe Diffuse Aches Runny Nose/ Eye Tearin= Runny Nose/Eyes GI Upset > 30mins: 3= Vomiting/Diarrhea Tremor Observation: 2= Slight Tremor Visible Yawning Observation: 2= >3x During Session Anxiety or Irritability: 2=Irritable/Anxious Goose Flesh Skin: 0=Smooth Skin COWS Score: 19 CIWA Score Nausea/Vomitin Muscle Tremors: 2 Anxiety: 2 Agitation: 2 Paroxysmal Sweats: 1-Minimal Palms Moist Orientation: 0-Oriented Tacttile Disturbances: 1-Very Mild Itch/Numbness Auditory Disturbances: 1-Very Mild Visual Disturbances: 0-None Headache: 2-Mild CIWA-Ar Total Score: 13 - Admission Criteria OASAS Guidelines: Admission for Medically Managed Detox: Requires at least one of the followin. CIWA greater than 12 2. Seizures within the past 24 hours 3. Delirium tremens within the past 24 hours 4. Hallucinations within the past 24 hours 5. Acute intervention needed for co occurring medical disorder 6. Acute intervention needed for co occurring psychiatric disorder 7. Severe withdrawal that cannot be handled at a lower level of care (continued vomiting, continued diarrhea, abnormal vital signs) requiring intravenous medication and/or fluids 8. Admission ROS [facility] Chief Complaint: i need help to stop using heroin,alcohol,cocaine Allergies/Adverse Reactions: Allergies Allergy/AdvReac Type Severity Reaction Status Date / Time Fish Containing Products Allergy Severe Difficulty Verified 06/21/18 10:39 Breathing No Known Drug Allergies Allergy Verified 06/21/18 10:39 History of Present Illness: this 33 years old female with heroin,alcohol,cocaine dependence,withdrawal symptom,seeking detox, multiple admissions in detox,last 01/23/18 to 01/28/18 [facility] nicotine dependence 1 pack/day requesting nicotine patch and gum weight loss keep relapsing ptsd ,anxiety nd depression longest period of sobriety 6 years plan for rehab - Ebola screening Have you traveled outside of the country in the last 21 days: No (N) Have you had contact with anyone from an Ebola affected area: No Do you have a fever: No - Review of Systems Constitutional: Chills, Loss of Appetite, Malaise, Night Sweats, Changes in sleep, Weakness, Unintentional Wgt. Loss EENT: reports: Hearing Loss, Nose Congestion Respiratory: reports: No Symptoms reported Cardiac: reports: No Symptoms Reported GI: reports: Diarrhea, Nausea, Poor Appetite, Abdominal cramping : reports: No Symptoms Reported Musculoskeletal: reports: Joint Pain, Muscle Pain, Joint Stiffness Neuro: reports: Headache, Tremors Endocrine: reports: No Symptoms Reported Hematology: reports: No Symptoms Reported Psychiatric: reports: No Sypmtoms Reported, Judgement Intact, Mood/Affect Appropiate, Orientated x3, other (anxiety,depression,ptsd,insomnia) Other Systems: Reviewed and Negative Patient History - Patient Medical History Hx Anemia: No Hx Asthma: No Hx Chronic Obstructive Pulmonary Disease (COPD): No Hx Cancer: No Hx Cardiac Disorders: No Hx Congestive Heart Failure: No Hx Hypertension: No Hx Hypercholesterolemia: No Hx Pacemaker: No HX Cerebrovascular Accident: No Hx Seizures: No Hx Dementia: No Hx Diabetes: No Hx Gastrointestinal Disorders: No Hx Liver Disease: No Hx Genitourinary Disorders: No Hx Sexually Transmitted Disorders: Yes (TRIC TREATED) Hx Renal Disease (ESRD): No Hx Thyroid Disease: No Hx Human Immunodeficiency Virus (HIV): No (03/28 negative) Hx Hepatitis C: No Hx Depression: Yes Hx Suicide Attempt: Yes (05/30/2017 overdise) Hx Bipolar Disorder: No Hx Schizophrenia: No Other Medical History: no suicidal,no homicidal,osteoarthritis of both knees, history of pulmonary - Patient Surgical History Past Surgical History: No Hx Neurologic Surgery: No Hx Cataract Extraction: No Hx Cardiac Surgery: No Hx Lung Surgery: No (HISTORY OF PULMONARY EMBOLISM 2002) Hx Breast Surgery: No Hx Breast Biopsy: No Hx Abdominal Surgery: No Hx Appendectomy: No Hx Cholecystectomy: No Hx Genitourinary Surgery: No Hx Section: No Hx Orthopedic Surgery: Yes (RIGHT FEMORAL FRACTURE 1991at age of 65 years old) Hx Hysterectomy: No Anesthesia Reaction: No - PPD History Previous Implant?: Yes Documented Results: Negative w/proof Implanted On Prior [facility] Admission?: Yes Date: 12/06/17 Results: 0 mm PPD to be Administered?: No - Reproductive History Patient is a Female of Child Bearing Age (11 -55 yrs old): Yes Last Menstrual Period: 06/21/18 Patient : No - Smoking Cessation Smoking history: Current every day smoker Have you smoked in the past 12 months: Yes Aproximately how many cigarettes per day: 10 Cigars Per Day: 0 Hx Chewing Tobacco Use: No Initiated information on smoking cessation: Yes 'Breaking Loose' booklet given: 06/21/18 - Substance & Tx. History Hx Alcohol Use: Yes Hx Substance Use: Yes Substance Use Type: Alcohol, Cocaine, Heroin Hx Substance Use Treatment: Yes ([facility] 01/23/18 to 01/28/18) - Substances abused Heroin Substance route: Inhalation Frequency: Daily Amount used: 15 BAGS Age of first use: 22 Date of last use: 06/20/18 Cocaine Substance route: Inhalation Frequency: Daily Amount used: $20 Age of first use: 18 Date of last use: 06/20/18 Alcohol Substance route: Oral Frequency: Daily Amount used: 2 pints of liquor Age of first use: 22 Date of last use: 06/21/18 Family Disease History - Family Disease History Family Disease History: Diabetes: Mother (ALIVE), Heart Disease: Father ( PROSTATE CANCER), CA: Father Admission Physical Exam [facility] - Vital Signs Vital Signs: Vital Signs - 24 hr 06/21/18 06/21/18 10:41 11:01 Temperature 99.0 F 99.0 F Pulse Rate 98 H 98 H Respiratory 18 18 Rate Blood Pressure 123/84 123/84 - Physical General Appearance: Yes: Moderate Distress, Tremorous, Irritable, Sweating, Anxious HEENTM: Yes: Normal ENT Inspection, KARL, Pharynx Normal Respiratory: Yes: Lungs Clear, Normal Breath Sounds, No Respiratory Distress Neck: Yes: Within Normal Limits, Supple, Trachea in good position Breast: Yes: Breast Exam Deferred Cardiology: Yes: Within Normal Limits, Regular Rhythm, Regular Rate, S1, S2 Abdominal: Yes: Within Normal Limits, Normal Bowel Sounds, Non Tender, Flat, Soft Genitourinary: Yes: Within Normal Limits Back: Yes: Muscle Spasm Extremities: Yes: Within Normal Limits, Normal Range of Motion, Tremors Neurological: Yes: radio broadcaster II-XII NML intact, Fully Oriented, Alert, Motor Strength 5/5 Integumentary: Yes: Dry Lymphatic: Yes: Within Normal Limits - Diagnostic (1) Opioid dependence with withdrawal Current Visit: No Status: Chronic (2) Insomnia Current Visit: No Status: Acute (3) Nicotine dependence Current Visit: No Status: Acute Qualifiers: Nicotine product type: cigarettes Substance use status: uncomplicated Qualified Code(s): F17.210 - Nicotine dependence, cigarettes, uncomplicated (4) Weight loss Current Visit: No Status: Acute (5) Alcohol dependence with uncomplicated withdrawal Current Visit: No Status: Chronic (6) Cocaine dependence Current Visit: No Status: Chronic Qualifiers: Substance use status: uncomplicated Qualified Code(s): F14.20 - Cocaine dependence, uncomplicated (7) PTSD (post-traumatic stress disorder) Current Visit: No Status: Chronic (8) History of pulmonary embolism Current Visit: No Status: Resolved (9) Osteoarthritis of both knees Current Visit: Yes Status: Acute Cleared for Admission S - Detox or Rehab [facility] Level of Care: Medically Managed Detox Regimen/Protocol: Methadone/Librium Breathalyzer - Breathalyzer Breathalyzer: 0 POC Urine test - Test device test lot number: [id number] Expiration date: 11/08/19 - Control test control: Yes - Result Urine Test Results: Negative - NO line present Urine Drug Screen - Test Device Lot number: [id number] Expiration date: 02/07/20 - Control Is test valid?: Yes - Results Drug screen NEGATIVE: No Urine drug screen results: THC-Marijuana, KIKE-Cocaine, FEN-Fentanyl, MOP-Opiates Inpatient Rehab Admission - Rehab Decision to Admit Inpatient rehab admission?: No
[2018-06-21] MEDS ORDERED: ACETAMINOPHEN 325 MG TABLET (FP) PO PRN ×2 (11:34)
[2018-06-21] MEDS ORDERED: MAGNESIUM HYDROX 2400MG/30ML ORAL SUSPENSION 30 ML CUP PO PRN (11:34)
[2018-06-21] MEDS ORDERED: MAG HYDROX/AL HYDROX/SIMETH 30 ML UNIT-DOSE CUP PO PRN (11:34)
[2018-06-21] MEDS ORDERED: BISMUTH SUBSALICYLATE 262 MG/15 ML BTL PO PRN (11:34)
[2018-06-21] MEDS ORDERED: MAGNESIUM CITRATE 300 ML BOTTLE PO PRN (11:34)
[2018-06-21] MEDS ORDERED: MENTHOL/PHENOL 1 EACH UD MM PRN (11:34)
[2018-06-21] MEDS ORDERED: NICOTINE POLACRILEX 2 MG GUM BUC PRN (11:34)
[2018-06-21] MEDS ORDERED: METHADONE HCL 10 MG TABLET (FOR DETOX USE ONLY) PO ONE (11:38)
[2018-06-21] MEDS ORDERED: chlordiazePOXIDE HCL 25 MG CAPSULE PO PRN (11:39)
[2018-06-21] MEDS: NICOTINE 21 MG/24 HOURS TOPICAL PATCH TD SCH (12:42)
[2018-06-21] MEDS: chlordiazePOXIDE HCL 25 MG CAPSULE PO SCH ×2 (17:13→22:14)
[2018-06-21] MEDS: IBUPROFEN 400 MG TABLET (FP) PO PRN (20:35)
[2018-06-21] MEDS: QUEtiapine FUMARATE 100 MG TABLET (FP) PO SCH (22:14)
[2018-06-21] MEDS: cloNIDine HCL 0.1 MG TABLET PO PRN (22:14)
[2018-06-21] MEDS: THIAMINE HCL 100 MG TABLET (FP) PO SCH (22:14)
[2018-06-21] MEDS: MELATONIN 5 MG TABLETS PO PRN (22:14)
[2018-06-21] MEDS ORDERED: METHADONE HCL 10 MG TABLET PO ONE (23:00)
[2018-06-22] MEDS: chlordiazePOXIDE HCL 25 MG CAPSULE PO SCH ×4 (06:03→22:13)
[2018-06-22] MEDS ORDERED: METHADONE HCL 10 MG TABLET (FOR DETOX USE ONLY) PO ONE (10:00)
[2018-06-22 10:02] LABS: HEMATOCRIT 38.9 % (32.4-45.2); HEMOGLOBIN 12.9 GM/dL (10.7-15.3); MCH 31.4 pg (25.7-33.7); MCHC 33.1 g/dl (32.0-36.0); MEAN PLT VOLUME 8.2 fl (7.5-11.1); PLATELET COUNT 209 K/MM3 (134-434); RDW 13.7 % (11.6-15.6); WHITE BLOOD COUNT 8.7 K/mm3 (4.0-10.0)
[2018-06-22 10:06] LABS: ALBUMIN 2.8 g/dl (3.4-5.0); ALK PHOS 73 U/L (45-117); ANION GAP 4 MMOL/L (8-16); BILIRUBIN,TOTAL 0.3 mg/dL (0.2-1); BLOOD UREA NITROGEN 11 mg/dL (7-18); CHLORIDE 107 mmol/L (98-107); CO2 29 mmol/L (21-32); CREATININE 0.7 mg/dL (0.55-1.3); GLUCOSE,RANDOM 89 mg/dL (74-106); POTASSIUM 3.7 mmol/L (3.5-5.1); SGOT/AST 11 U/L (15-37); SGPT/ALT 18 U/L (13-61); SODIUM 141 mmol/L (136-145); TOT PROT 5.6 g/dl (6.4-8.2)
[2018-06-22] MEDS: PRENATAL VITAMINS W/ FOLIC ACID TABLET (FP) PO SCH (10:18)
[2018-06-22] MEDS: SERTRALINE HCL 25 MG TABLET (FP) PO SCH (10:18)
[2018-06-22] MEDS: NICOTINE 21 MG/24 HOURS TOPICAL PATCH TD SCH (10:21)
--- NOTE | 2018-06-22 10:40 | PN ---
[facility] CIWA - CIWA Score Nausea/Vomitin-No Nausea/No Vomiting Muscle Tremors: 3 Anxiety: 3 Agitation: 3 Paroxysmal Sweats: 3 Orientation: 0-Oriented Tacttile Disturbances: 0-None Auditory Disturbances: 0-None Visual Disturbances: 0-None Headache: 0-None Present CIWA-Ar Total Score: 12 [facility] COWS - Scale Resting Pulse: 1= SC 81-100 Sweatin=Flushed/Facial Moisture Restless Observation: 1= Difficult to Sit Still Pupil Size: 0= Normal to Room Light Bone or Joint Aches: 2= Severe Diffuse Aches Runny Nose/ Eye Tearin= Runny Nose/Eyes GI Upset > 30mins: 1= Stomach Cramp Tremor Observation of Outstretched Hands: 2= Slight Tremor Visible Yawning Observation: 2= >3x During Session Anxiety or Irritability: 2=Irritable/Anxious Goose Flesh Skin: 0=Smooth Skin COWS Score: 15 [facility] Progress Note (SOAP) Subjective: nausea sweats shakes interrupted sleep stomach ache body aches irritable Objective: 06/22/18 10:40 Vital Signs Temperature 98.2 F 06/22/18 09:52 Pulse Rate 82 06/22/18 09:52 Respiratory Rate 18 06/22/18 09:52 Blood Pressure 116/64 06/22/18 09:52 O2 Sat by Pulse Oximetry (%) Laboratory Tests 06/22/18 06/22/18 07:00 07:00 WBC 8.7 RBC 4.10 Hgb 12.9 Hct 38.9 MCV 95.0 MCH 31.4 MCHC 33.1 RDW 13.7 Plt Count 209 D MPV 8.2 Sodium 141 Potassium 3.7 Chloride 107 Carbon Dioxide 29 Anion Gap 4 L BUN 11 Creatinine 0.7 Creat Clearance w eGFR 95.79 Random Glucose 89 Calcium 8.0 L Total Bilirubin 0.3 AST 11 L ALT 18 Alkaline Phosphatase 73 Total Protein 5.6 L Albumin 2.8 L aaox3 ambulating no acute distress Assessment: 06/22/18 10:45 withdrawal sx Plan: continue detox increase fluids bently prn mom/mylanta
[2018-06-22] MEDS ORDERED: ONDANSETRON *ODT* 4 MG TABLET SL PRN (10:47)
[2018-06-22] MEDS ORDERED: DICYCLOMINE HCL 10 MG CAPSULE PO PRN (10:52)
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
[2018-06-22] MEDS: hydrOXYzine PAMOATE 25 MG CAPSULE (FP) PO PRN (16:59)
[2018-06-22] MEDS: METHOCARBAMOL 500 MG TABLET PO PRN (17:00)
[2018-06-22] MEDS: IBUPROFEN 400 MG TABLET (FP) PO PRN (22:13)
[2018-06-22] MEDS: QUEtiapine FUMARATE 100 MG TABLET (FP) PO SCH (22:14)
[2018-06-22] MEDS: THIAMINE HCL 100 MG TABLET (FP) PO SCH (22:14)
[2018-06-22] MEDS: cloNIDine HCL 0.1 MG TABLET PO PRN (22:14)
[2018-06-22] MEDS: MELATONIN 5 MG TABLETS PO PRN (22:15)
[2018-06-23] MEDS: chlordiazePOXIDE HCL 25 MG CAPSULE PO SCH ×2 (05:23→10:14)
[2018-06-23] MEDS ORDERED: METHADONE HCL 10 MG TABLET (FOR DETOX USE ONLY) PO ONE (10:00)
--- NOTE | 2018-06-23 10:02 | PN ---
[facility] CIWA - CIWA Score Nausea/Vomitin-No Nausea/No Vomiting Muscle Tremors: 3 Anxiety: 2 Agitation: 3 Paroxysmal Sweats: 2 Orientation: 0-Oriented Tacttile Disturbances: 0-None Auditory Disturbances: 0-None Visual Disturbances: 0-None Headache: 0-None Present CIWA-Ar Total Score: 10 [facility] COWS - Scale Resting Pulse: 0= DE 80 or Below Sweatin= Chills/Flushing Restless Observation: 1= Difficult to Sit Still Pupil Size: 0= Normal to Room Light Bone or Joint Aches: 1= Mild Discomfort Runny Nose/ Eye Tearin= Runny Nose/Eyes GI Upset > 30mins: 0= None Tremor Observation of Outstretched Hands: 2= Slight Tremor Visible Yawning Observation: 2= >3x During Session Anxiety or Irritability: 1=Feels Anxious/Irritable Goose Flesh Skin: 0=Smooth Skin COWS Score: 10 [facility] Progress Note (SOAP) Subjective: sweats mild shakes body aches interrupted sleep anxiety Objective: 06/23/18 10:02 Vital Signs Temperature 97.5 F L 06/23/18 09:16 Pulse Rate 73 06/23/18 09:16 Respiratory Rate 18 06/23/18 09:16 Blood Pressure 107/65 06/23/18 09:16 O2 Sat by Pulse Oximetry (%) Laboratory Tests 06/22/18 06/22/18 06/22/18 07:00 07:00 07:00 WBC 8.7 RBC 4.10 Hgb 12.9 Hct 38.9 MCV 95.0 MCH 31.4 MCHC 33.1 RDW 13.7 Plt Count 209 D MPV 8.2 Sodium 141 Potassium 3.7 Chloride 107 Carbon Dioxide 29 Anion Gap 4 L BUN 11 Creatinine 0.7 Creat Clearance w eGFR 95.79 Random Glucose 89 Calcium 8.0 L Total Bilirubin 0.3 AST 11 L ALT 18 Alkaline Phosphatase 73 Total Protein 5.6 L Albumin 2.8 L RPR Titer Nonreactive aaox3 ambulating no acute distress Assessment: 06/23/18 10:02 withdrawal sx Plan: continue detox increase fluids labs pending
[2018-06-23] MEDS: NICOTINE 21 MG/24 HOURS TOPICAL PATCH TD SCH (10:14)
[2018-06-23] MEDS: SERTRALINE HCL 25 MG TABLET (FP) PO SCH (10:14)
[2018-06-23] MEDS: PRENATAL VITAMINS W/ FOLIC ACID TABLET (FP) PO SCH (10:14)
[2018-06-23] MEDS: METHOCARBAMOL 500 MG TABLET PO PRN (12:41)
[2018-06-23] MEDS: hydrOXYzine PAMOATE 25 MG CAPSULE (FP) PO PRN (12:41)
[2018-06-23] MEDS ORDERED: chlordiazePOXIDE HCL 10 MG CAPSULE PO PRN (17:00)
[2018-06-23] MEDS: chlordiazePOXIDE HCL 10 MG CAPSULE PO SCH ×2 (17:07→22:08)
[2018-06-23] MEDS: QUEtiapine FUMARATE 100 MG TABLET (FP) PO SCH (22:07)
[2018-06-23] MEDS: THIAMINE HCL 100 MG TABLET (FP) PO SCH (22:07)
[2018-06-23] MEDS: MELATONIN 5 MG TABLETS PO PRN (22:08)
[2018-06-24] MEDS: chlordiazePOXIDE HCL 10 MG CAPSULE PO SCH ×3 (05:54→17:12)
[2018-06-24] MEDS ORDERED: METHADONE HCL 10 MG TABLET (FOR DETOX USE ONLY) PO ONE (10:00)
[2018-06-24] MEDS: NICOTINE 21 MG/24 HOURS TOPICAL PATCH TD SCH (10:09)
[2018-06-24] MEDS: PRENATAL VITAMINS W/ FOLIC ACID TABLET (FP) PO SCH (10:10)
[2018-06-24] MEDS: SERTRALINE HCL 25 MG TABLET (FP) PO SCH (10:10)
--- NOTE | 2018-06-24 12:13 | PN ---
[facility] Progress Note (SOAP) Subjective: sweats feeling better Objective: 06/24/18 12:12 Vital Signs Temperature 97.7 F 06/24/18 09:40 Pulse Rate 73 06/24/18 09:40 Respiratory Rate 18 06/24/18 09:40 Blood Pressure 108/61 06/24/18 09:40 O2 Sat by Pulse Oximetry (%) Laboratory Tests 06/22/18 06/22/18 06/22/18 07:00 07:00 07:00 WBC 8.7 RBC 4.10 Hgb 12.9 Hct 38.9 MCV 95.0 MCH 31.4 MCHC 33.1 RDW 13.7 Plt Count 209 D MPV 8.2 Sodium 141 Potassium 3.7 Chloride 107 Carbon Dioxide 29 Anion Gap 4 L BUN 11 Creatinine 0.7 Creat Clearance w eGFR 95.79 Random Glucose 89 Calcium 8.0 L Total Bilirubin 0.3 AST 11 L ALT 18 Alkaline Phosphatase 73 Total Protein 5.6 L Albumin 2.8 L RPR Titer Nonreactive u/a result pending aaox3 ambulating no acute distress Assessment: 06/24/18 12:12 mild withdrawal sx Plan: continue detox increase fluids d/c in am
[2018-06-24] MEDS: hydrOXYzine PAMOATE 25 MG CAPSULE (FP) PO PRN ×2 (12:24→19:38)
[2018-06-24] MEDS: METHOCARBAMOL 500 MG TABLET PO PRN ×2 (14:27→22:06)
[2018-06-24 15:01] LABS: EPI CELLS 5.8 /HPF (0-5/HPF); URINE APPEARANCE CLEAR; URINE BACTERIA 116.9 /hpf (NEGATIVE); URINE BILIRUBIN NEGATIVE (NEGATIVE); URINE CASTS 1 /lpf (0-8); URINE COLOR YELLOW; URINE GLUCOSE (UA) NEGATIVE (NEGATIVE); URINE KETONE NEGATIVE (NEGATIVE); URINE LEUK ESTERASE NEGATIVE (NEGATIVE); URINE NITRITE NEGATIVE (NEGATIVE); URINE PROTEIN NEGATIVE (NEGATIVE); URINE RBC 76 /hpf (0-4); URINE UROBILINOGEN 0.2 mg/dL (0.2-1.0); URINE WBC 3 /hpf (0-5)
[2018-06-24] MEDS: QUEtiapine FUMARATE 100 MG TABLET (FP) PO SCH (22:06)
[2018-06-24] MEDS: THIAMINE HCL 100 MG TABLET (FP) PO SCH (22:06)
[2018-06-24] MEDS: MELATONIN 5 MG TABLETS PO PRN (22:06)
[2018-06-25] MEDS ORDERED: METHADONE HCL 5 MG TABLET (FOR DETOX USE ONLY) PO ONE (06:00)
[2018-06-25] MEDS: chlordiazePOXIDE HCL 10 MG CAPSULE PO SCH (06:20)
--- NOTE | 2018-06-25 09:49 | DS ---
[facility] Detox Discharge Summary Admission Date: 06/21/18 Discharge Date: 06/25/18 - History Present History: Alcohol Dependence, Cannabis Dependence, Cocaine Dependence - Physical Exam Results Vital Signs: Vital Signs Temperature 97.7 F 06/25/18 06:29 Pulse Rate 65 06/25/18 06:29 Respiratory Rate 16 06/25/18 06:29 Blood Pressure 95/59 L 06/25/18 06:29 O2 Sat by Pulse Oximetry (%) - Treatment Hospital Course: Detox Protocol Followed, Detoxed Safely, Responded well, Discharged Condition Good, Rehab Referral Accepted - Medication Discharge Medications: Ambulatory Orders Quetiapine Fumarate [Seroquel] 100 mg PO HS #30 tablet 01/27/18 hydrOXYzine PAMOATE [Vistaril -] 50 mg PO Q4H PRN #30 capsule 01/27/18 Sertraline HCl [Zoloft -] 50 mg PO DAILY 06/21/18 - Diagnosis (1) Osteoarthritis of both knees Current Visit: Yes Status: Chronic Qualifiers: Osteoarthritis type: other secondary Qualified Code(s): M17.4 - Other bilateral secondary osteoarthritis of knee (2) Substance induced mood disorder Current Visit: Yes Status: Acute (3) Substance-induced sleep disorder Current Visit: Yes Status: Acute (4) Depressive disorder Current Visit: Yes Status: Chronic (5) PTSD (post-traumatic stress disorder) Current Visit: Yes Status: Chronic (6) MDD (major depressive disorder) Current Visit: Yes Status: Ruled-out (7) Alcohol dependence with uncomplicated withdrawal Current Visit: Yes Status: Chronic (8) Cannabis abuse Current Visit: Yes Status: Chronic (9) Cocaine dependence Current Visit: Yes Status: Chronic Qualifiers: Substance use status: uncomplicated Qualified Code(s): F14.20 - Cocaine dependence, uncomplicated (10) Insomnia Current Visit: No Status: Acute (11) Opioid dependence with withdrawal Current Visit: Yes Status: Chronic (12) Substance induced mood disorder Current Visit: No Status: Acute (13) Anxiety and depression Current Visit: No Status: Chronic (14) Nicotine dependence Current Visit: Yes Status: Chronic Qualifiers: Nicotine product type: cigarettes Substance use status: uncomplicated Qualified Code(s): F17.210 - Nicotine dependence, cigarettes, uncomplicated (15) History of pulmonary embolism Current Visit: No Status: Resolved - AMA Did Patient Leave Against Medical Advice: No (referred to [facility])
[2018-06-25] MEDS: SERTRALINE HCL 25 MG TABLET (FP) PO SCH (10:50)
[2018-06-25] MEDS: PRENATAL VITAMINS W/ FOLIC ACID TABLET (FP) PO SCH (10:50)
[2018-06-25] MEDS: NICOTINE 21 MG/24 HOURS TOPICAL PATCH TD SCH (10:51)
[2018-06-25 10:54] VITALS: BP 100/59; PULSE 72; TEMP 97.9
== END 2018-06-25 13:19 | disposition other institution (70) | DRG 773 ==
LOC: YASAS 09:34 → Y6N 11:36
PROVIDERS: ADMIT Surgery; ATTEND Surgery
PROC: HZ2ZZZZ Detoxification Services for Substance Abuse Treatment (ICD-10-PCS; principal; 2018-06-21)
DX: F11.23 Opioid dependence with withdrawal (principal); F10.230 Alcohol dependence with withdrawal, uncomplicated; F14.20 Cocaine dependence, uncomplicated; F12.20 Cannabis dependence, uncomplicated; F17.210 Nicotine dependence, cigarettes, uncomplicated; F19.24 Other psychoactive substance dependence with psychoactive substance-induced mood disorder; F19.282 Other psychoactive substance dependence with psychoactive substance-induced sleep disorder; F41.8 Other specified anxiety disorders; F32.9 Major depressive disorder, single episode, unspecified; G47.00 Insomnia, unspecified; M17.4 Other bilateral secondary osteoarthritis of knee; Z86.711 Personal history of pulmonary embolism
CPT/HCPCS: 36415; 80053; 81003; 85027; 86593; J0735

== ENCOUNTER 2018-06-25 13:08 | Inpatient (IN) | payer OTHER ==
[2018-06-25] MEDS ORDERED: LOPERAMIDE HCL 2 MG CAPSULE PO PRN (15:38)
[2018-06-25] MEDS ORDERED: MENTHOL/PHENOL 1 EACH UD MM PRN (15:38)
[2018-06-25] MEDS ORDERED: hydrOXYzine PAMOATE 50 MG CAPSULE (FP) PO PRN (15:38)
[2018-06-25] MEDS ORDERED: ACETAMINOPHEN 325 MG TABLET (FP) PO PRN (15:38)
[2018-06-25] MEDS ORDERED: MAG HYDROX/AL HYDROX/SIMETH 30 ML UNIT-DOSE CUP PO PRN (15:38)
[2018-06-25] MEDS ORDERED: MAGNESIUM HYDROX 2400MG/30ML ORAL SUSPENSION 30 ML CUP PO PRN (15:38)
[2018-06-25] MEDS ORDERED: NICOTINE POLACRILEX 4 MG GUM BUC PRN (15:38)
[2018-06-25] MEDS ORDERED: guaiFENesin 200 MG/10 ML 10 ML UNIT-DOSE CUPS PO PRN (15:38)
[2018-06-25] MEDS ORDERED: P-EPHED 60MG/TRIPROLIDI 2.5MG TABLET PO PRN (15:38)
[2018-06-25] MEDS ORDERED: MAGNESIUM CITRATE 300 ML BOTTLE PO PRN (15:38)
--- NOTE | 2018-06-25 15:38 | HP ---
[facility] Rehab Assess/Revision - Admission History Admitted to Rehab from: [facility] Date of Admission to Rehab: 06/25/18 - Vital signs Vital Signs: Vital Signs Period Temp Pulse Resp BP Sys/Lucas Pulse Ox Last 24 Hr 97.7 F 81 18 101/66 - Findings Detox History & Physical reviewed: Yes Concur with findings: Yes Inpatient Rehab Admission - Rehab Decision to Admit Inpatient rehab admission?: Yes - Initial Determination Are CD services needed?: Yes Free of communicable disease: Yes Not in need of hospitalization: Yes - Rehab Admission Criteria Previous failed treatment: Yes Poor recovery environment: Yes Comorbidities: Yes Lacks judgement: Yes Patient is meeting Inpatient Rehab admission criteria:: Yes
[2018-06-25] MEDS: IBUPROFEN 400 MG TABLET (FP) PO PRN (17:48)
[2018-06-25] MEDS: hydrOXYzine PAMOATE 50 MG CAPSULE (FP) PO PRN (17:49)
[2018-06-25] MEDS: THIAMINE HCL 100 MG TABLET (FP) PO SCH (21:17)
[2018-06-25] MEDS: QUEtiapine FUMARATE 100 MG TABLET (FP) PO SCH (21:17)
[2018-06-25] MEDS: MELATONIN 5 MG TABLETS PO PRN (21:18)
[2018-06-26] MEDS ORDERED: ONDANSETRON *ODT* 4 MG TABLET SL ONE (05:25)
[2018-06-26] MEDS ORDERED: cloNIDine HCL 0.1 MG TABLET PO ONE (05:38)
--- NOTE | 2018-06-26 05:41 | PN ---
S Progress Note Note: Patient complained of withdrawal symptoms. B/P 126/93 Vital Signs Temperature 97.9 F 06/26/18 05:29 Pulse Rate 72 06/26/18 05:29 Respiratory Rate 18 06/26/18 05:29 Blood Pressure 126/93 06/26/18 05:29 O2 Sat by Pulse Oximetry (%) Action: Clonidine 0.1mg tablet oral ordered
[2018-06-26] MEDS ORDERED: TRIMETHOBENZAMIDE HCL 200MG/2ML INJ IM ONE ×2 (06:51→18:29)
--- NOTE | 2018-06-26 06:53 | PN ---
S Progress Note Note: patient vomited Vital Signs Temperature 97.9 F 06/26/18 05:29 Pulse Rate 72 06/26/18 05:29 Respiratory Rate 18 06/26/18 05:29 Blood Pressure 126/93 06/26/18 05:29 O2 Sat by Pulse Oximetry (%) Action' Tigan 200mg intramuscular ordered
[2018-06-26] MEDS: SERTRALINE HCL 50 MG TABLET (FP) PO SCH (10:55)
[2018-06-26] MEDS: NICOTINE 21 MG/24 HOURS TOPICAL PATCH TD SCH (10:55)
[2018-06-26] MEDS: PRENATAL VITAMINS W/ FOLIC ACID TABLET (FP) PO SCH (10:55)
[2018-06-26] MEDS ORDERED: TRIMETHOBENZAMIDE HCL 200MG/2ML INJ IM PRN (13:21)
--- NOTE | 2018-06-26 13:47 | PN ---
[facility] Progress Note Note: NURSE INFORMED [employer] REGISTRAR THIS PATIENT WHO WAS ADMITTED YESTERDAY FROM DETOX 6N C/O N/V FROM LAST NIGHT. SHE WAS SEEN BY THE PROVIDER AND RECEIVED ZOFRAN SL ONCE AND CLONIDINE ONCE. SAW PATIENT IN BED. ALERT O X 3. Vital Signs 06/26/18 06/26/18 06:30 10:27 Temperature 97.9 F Pulse Rate 72 72 Respiratory 18 18 Rate Blood Pressure 126/93 115/79 A:WITHDRAWAL SX PLAN:INCREASE PO FLUIDS TOLERATED CLONIDINE 0.1 MG PO BID FLEXERIL 10 MG PO TID TIGAN 200 MG IM INJ PRN
[2018-06-26] MEDS: CYCLOBENZAPRINE HCL 10 MG TABLET (FP) PO SCH ×2 (14:26→21:49)
[2018-06-26] MEDS ORDERED: MELATONIN 5 MG TABLETS PO ONE (15:56)
--- NOTE | 2018-06-26 15:59 | PN ---
[facility] Progress Note Note: NOTIFIED BY RN, PATIENT C/O LACK OF SLEEP DUE TO VOMITING SX. PATIENT INFORMED RN, SHE WOULD LIKE TO SLEEP/TAKE A NAP NOW AND WOULD LIKE MEDICATION TO HELP HER FALL ASLEEP. PATIENT ON SEROQUEL 100MG HS AND MELATONIN 5MG PRN. WILL ORDER ONE TIMNE DOSE OF MELATONIN 5MG TO HELP PATIENT SLEEP FOR A FEW HOURS. CONTINUE TO MONITOR CLINICALLY. Vital Signs Temperature 97.9 F 06/26/18 06:30 Pulse Rate 72 06/26/18 10:27 Respiratory Rate 18 06/26/18 10:27 Blood Pressure 115/79 06/26/18 10:27 O2 Sat by Pulse Oximetry (%)
[2018-06-26] MEDS ORDERED: ONDANSETRON *ODT* 4 MG TABLET SL PRN (18:29)
[2018-06-26] MEDS ORDERED: METOCLOPRAMIDE HCL INJECTION 10 MG/2 ML VIAL IVPUSH PRN (19:03)
--- NOTE | 2018-06-26 19:23 | PN ---
[facility] Progress Note Note: Client assessed in her room. She was alert and oriented x 3. She reports she started vomiting since 4am and has not been able to tolerate food or fluids by mouth. Tigan and Zofran were administered earlier in the day but vomiting has not resolved. IV fluids and Reglan IV push ordered. She reports she had a regular bowel movement 3 hours earlier. Denies abdominal pain or tenderness. BS x4. Last Vital Signs Temp Pulse Resp BP Pulse Ox 98.8 F 111 H 20 129/85 06/26/18 20:00 06/26/18 20:00 06/26/18 20:00 06/26/18 20:00
[2018-06-26] MEDS: IBUPROFEN 400 MG TABLET (FP) PO PRN (19:24)
[2018-06-26] MEDS ORDERED: SODIUM CHLORIDE 0.9% 500 ML INFUS.BAG IV ONE (19:54)
[2018-06-26] MEDS ORDERED: SODIUM CHLORIDE 1,000 ML IV ONE ×2 (20:00→20:52)
[2018-06-26] MEDS: QUEtiapine FUMARATE 100 MG TABLET (FP) PO SCH (21:49)
[2018-06-26] MEDS: hydrOXYzine PAMOATE 50 MG CAPSULE (FP) PO PRN (21:50)
[2018-06-26] MEDS: cloNIDine HCL 0.1 MG TABLET PO SCH (23:20)
[2018-06-26] MEDS: THIAMINE HCL 100 MG TABLET (FP) PO SCH (23:20)
[2018-06-27] MEDS: CYCLOBENZAPRINE HCL 10 MG TABLET (FP) PO SCH ×3 (06:21→21:18)
[2018-06-27] MEDS: NICOTINE 21 MG/24 HOURS TOPICAL PATCH TD SCH (09:05)
[2018-06-27] MEDS: cloNIDine HCL 0.1 MG TABLET PO SCH ×2 (09:06→21:19)
[2018-06-27] MEDS: SERTRALINE HCL 50 MG TABLET (FP) PO SCH (09:06)
[2018-06-27] MEDS: PRENATAL VITAMINS W/ FOLIC ACID TABLET (FP) PO SCH (09:06)
[2018-06-27 18:52] LABS: ALBUMIN 3.8 g/dl (3.4-5.0); ALK PHOS 73 U/L (45-117); ANION GAP 5 MMOL/L (8-16); BILIRUBIN,TOTAL 0.2 mg/dL (0.2-1); BLOOD UREA NITROGEN 11 mg/dL (7-18); CALCIUM 8.4 mg/dL (8.5-10.1); CHLORIDE 104 mmol/L (98-107); CO2 29 mmol/L (21-32); CREATININE 0.8 mg/dL (0.55-1.3); GLUCOSE,RANDOM 96 mg/dL (74-106); POTASSIUM 5.2 mmol/L (3.5-5.1); SGOT/AST 49 U/L (15-37); SGPT/ALT 52 U/L (13-61); SODIUM 137 mmol/L (136-145); TOT PROT 7.6 g/dl (6.4-8.2)
[2018-06-27] MEDS: THIAMINE HCL 100 MG TABLET (FP) PO SCH (21:18)
[2018-06-27] MEDS: QUEtiapine FUMARATE 100 MG TABLET (FP) PO SCH (21:18)
[2018-06-27] MEDS: MELATONIN 5 MG TABLETS PO PRN (21:20)
[2018-06-27] MEDS: hydrOXYzine PAMOATE 50 MG CAPSULE (FP) PO PRN (22:28)
[2018-06-27] MEDS ORDERED: CYCLOBENZAPRINE HCL 5 MG TABLET PO SCH (23:45)
[2018-06-28] MEDS ORDERED: diphenhydrAMINE HCL 50 MG CAPSULE PO ONE (00:32)
[2018-06-28] MEDS: CYCLOBENZAPRINE HCL 10 MG TABLET (FP) PO SCH ×3 (06:33→21:15)
[2018-06-28] MEDS: NICOTINE 21 MG/24 HOURS TOPICAL PATCH TD SCH (10:21)
[2018-06-28] MEDS: SERTRALINE HCL 50 MG TABLET (FP) PO SCH (10:21)
[2018-06-28] MEDS: cloNIDine HCL 0.1 MG TABLET PO SCH ×2 (10:21→21:15)
[2018-06-28] MEDS: PRENATAL VITAMINS W/ FOLIC ACID TABLET (FP) PO SCH (10:21)
[2018-06-28] MEDS: hydrOXYzine PAMOATE 50 MG CAPSULE (FP) PO PRN ×2 (17:58→21:15)
[2018-06-28] MEDS: THIAMINE HCL 100 MG TABLET (FP) PO SCH (21:15)
[2018-06-28] MEDS: MELATONIN 5 MG TABLETS PO PRN (21:15)
[2018-06-28] MEDS: QUEtiapine FUMARATE 100 MG TABLET (FP) PO SCH (21:15)
[2018-06-29] MEDS: CYCLOBENZAPRINE HCL 10 MG TABLET (FP) PO SCH ×3 (06:25→21:37)
[2018-06-29] MEDS: NICOTINE 21 MG/24 HOURS TOPICAL PATCH TD SCH (09:30)
[2018-06-29] MEDS: PRENATAL VITAMINS W/ FOLIC ACID TABLET (FP) PO SCH (09:30)
[2018-06-29] MEDS: cloNIDine HCL 0.1 MG TABLET PO SCH ×2 (09:31→21:37)
[2018-06-29] MEDS: SERTRALINE HCL 50 MG TABLET (FP) PO SCH (09:31)
[2018-06-29] MEDS: hydrOXYzine PAMOATE 50 MG CAPSULE (FP) PO PRN ×2 (12:07→21:37)
--- NOTE | 2018-06-29 14:19 | PN ---
[facility] Progress Note Note: Laboratory Tests 06/27/18 18:00 Sodium 137 Potassium 5.2 H Chloride 104 Carbon Dioxide 29 Anion Gap 5 L BUN 11 Creatinine 0.8 Creat Clearance w eGFR 82.11 Random Glucose 96 Calcium 8.4 L Total Bilirubin 0.2 AST 49 H ALT 52 Alkaline Phosphatase 73 Total Protein 7.6 Albumin 3.8 LAB NOTED PLAN:INCREASE PO FLUIDS REPEAT K+ LEVEL IN A.M
[2018-06-29] MEDS: THIAMINE HCL 100 MG TABLET (FP) PO SCH (21:36)
[2018-06-29] MEDS: MELATONIN 5 MG TABLETS PO PRN (21:37)
[2018-06-29] MEDS: QUEtiapine FUMARATE 100 MG TABLET (FP) PO SCH (21:37)
[2018-06-30] MEDS: CYCLOBENZAPRINE HCL 10 MG TABLET (FP) PO SCH ×3 (06:28→21:56)
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
[2018-06-30] MEDS: PRENATAL VITAMINS W/ FOLIC ACID TABLET (FP) PO SCH (10:30)
[2018-06-30] MEDS: cloNIDine HCL 0.1 MG TABLET PO SCH ×2 (10:30→21:56)
[2018-06-30] MEDS: SERTRALINE HCL 50 MG TABLET (FP) PO SCH (10:30)
[2018-06-30] MEDS: NICOTINE 21 MG/24 HOURS TOPICAL PATCH TD SCH (10:31)
[2018-06-30] MEDS: hydrOXYzine PAMOATE 50 MG CAPSULE (FP) PO PRN ×2 (14:21→21:56)
[2018-06-30] MEDS: THIAMINE HCL 100 MG TABLET (FP) PO SCH (21:56)
[2018-06-30] MEDS: QUEtiapine FUMARATE 100 MG TABLET (FP) PO SCH (21:56)
[2018-06-30] MEDS ORDERED: traZODone HCL 50 MG TABLET (FP) PO SCH (22:00)
[2018-07-01] MEDS: CYCLOBENZAPRINE HCL 10 MG TABLET (FP) PO SCH (06:36)
[2018-07-01 07:09] VITALS: TEMP 97.7
[2018-07-01] MEDS ORDERED: METOCLOPRAMIDE HCL 10 MG TABLET (FP) PO PRN (09:42)
[2018-07-01] MEDS ORDERED: TRIMETHOBENZAMIDE HCL 300 MG CAPSULE PO PRN (09:43)
[2018-07-01 09:47] VITALS: BP 107/73; PULSE 93
[2018-07-01] MEDS ORDERED: PT OWN MED DRAWER 7, Y5N ONE (10:39)
[2018-07-01] MEDS: PRENATAL VITAMINS W/ FOLIC ACID TABLET (FP) PO SCH (10:41)
[2018-07-01] MEDS: SERTRALINE HCL 50 MG TABLET (FP) PO SCH (10:41)
[2018-07-01] MEDS: cloNIDine HCL 0.1 MG TABLET PO SCH (10:42)
[2018-07-01] MEDS: NICOTINE 21 MG/24 HOURS TOPICAL PATCH TD SCH (10:42)
--- NOTE | 2018-07-01 11:10 | PN ---
[facility] Progress Note Note: Patient is discharged today. Scripts for 30 days supply of medications(Zoloft 50 mg, Seroquel 100 mg, Trazadone 50 mg) are electronically transmitted to [facility] at [address] [place] [id number]
--- NOTE | 2018-07-01 11:28 | PN ---
[facility] Progress Note (SOAP) Subjective: patient to be discharged today at her request for personal reasons. Objective: A=O x3, no neurological deficits noted, lungs clear, heart rate regular. Medically stable for discharge. 07/01/18 11:37 CBC, BMP 06/30/18 08:25 Vital Signs (72 hours) 06/28/18 06/29/18 06/29/18 15:38 00:30 03:30 Temperature Pulse Rate 76 Respiratory 16 16 Rate Blood Pressure 110/73 06/29/18 06/29/18 06/29/18 06:55 10:00 20:40 Temperature 97.6 F Pulse Rate 62 112 H Respiratory 16 Rate Blood Pressure 97/63 116/82 106/81 06/30/18 06/30/18 06/30/18 00:30 03:30 07:17 Temperature 97.8 F Pulse Rate 83 Respiratory 17 18 18 Rate Blood Pressure 99/65 06/30/18 07/01/18 07/01/18 09:48 00:30 07:05 Temperature 97.7 F Pulse Rate 98 H 60 Respiratory 16 18 Rate Blood Pressure 104/71 124/80 07/01/18 09:46 Temperature Pulse Rate 93 H Respiratory Rate Blood Pressure 107/73 Assessment: Medically stable for discharge Diagnoses: Opioid dependence, chronic ETOH dependence, chronic Cocaine dependence, chronic 07/01/18 11:38 07/01/18 11:40 Plan: Client will go to [facility] for aftercare and mental health treatment. Will receive primary care at [facility]. No home medications.
== END 2018-07-01 11:45 | disposition home or self-care (01) | DRG 772 ==
LOC: YASAS 13:08 → Y3E 13:09
PROVIDERS: ADMIT Neuromusculoskeletal Medicine & OMM; ATTEND Neuromusculoskeletal Medicine & OMM
PROC: HZ42ZZZ Group Counseling for Substance Abuse Treatment, Cognitive-Behavioral (ICD-10-PCS; principal; 2018-06-25)
DX: F11.23 Opioid dependence with withdrawal (principal); F10.230 Alcohol dependence with withdrawal, uncomplicated; F14.20 Cocaine dependence, uncomplicated; F17.210 Nicotine dependence, cigarettes, uncomplicated; F43.10 Post-traumatic stress disorder, unspecified; F19.282 Other psychoactive substance dependence with psychoactive substance-induced sleep disorder; F32.9 Major depressive disorder, single episode, unspecified; R11.2 Nausea with vomiting, unspecified; M17.0 Bilateral primary osteoarthritis of knee
CPT/HCPCS: 36415; 80053; 84132; J0735; Q0162

== ENCOUNTER 2018-08-01 21:06 | Inpatient (IN) | payer OTHER | END 2018-08-05 18:02 | disposition left against medical advice (07) | LOC: YASAS 21:06 → Y3N 23:41 ==

== ENCOUNTER 2018-11-18 10:31 | Inpatient (IN) | payer OTHER ==
[2018-11-18 11:17] VITALS: BMI 24.3
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
[2018-11-18] MEDS ORDERED: MENTHOL/PHENOL 1 EACH UD MM PRN (12:35)
[2018-11-18] MEDS ORDERED: chlordiazePOXIDE HCL 10 MG CAPSULE PO PRN (12:35)
[2018-11-18] MEDS ORDERED: MAGNESIUM CITRATE 300 ML BOTTLE PO PRN (12:35)
[2018-11-18] MEDS ORDERED: BISMUTH SUBSALICYLATE 262 MG/15 ML BTL PO PRN (12:35)
[2018-11-18] MEDS ORDERED: NICOTINE POLACRILEX 2 MG GUM BUC PRN (12:35)
[2018-11-18] MEDS ORDERED: ONDANSETRON *ODT* 4 MG TABLET SL PRN (12:35)
[2018-11-18] MEDS ORDERED: ACETAMINOPHEN 325 MG TABLET (FP) PO PRN ×2 (12:35)
[2018-11-18] MEDS ORDERED: MAG HYDROX/AL HYDROX/SIMETH 30 ML UNIT-DOSE CUP PO PRN (12:35)
[2018-11-18] MEDS ORDERED: cloNIDine HCL 0.1 MG TABLET PO PRN (12:35)
[2018-11-18] MEDS ORDERED: MAGNESIUM HYDROX 2400MG/30ML ORAL SUSPENSION 30 ML CUP PO PRN (12:35)
[2018-11-18] MEDS ORDERED: IBUPROFEN 400 MG TABLET (FP) PO PRN (12:35)
--- NOTE | 2018-11-18 12:56 | PN ---
Teaching Attending Note Name of Resident: Devin Castañeda ATTENDING PHYSICIAN STATEMENT I saw and evaluated the patient. I reviewed the resident's note and discussed the case with the resident. I agree with the resident's findings and plan as documented. SUBJECTIVE: Agree with resident's subjective findings OBJECTIVE: Agree with resident's objective findings ASSESSMENT AND PLAN: Agree with admission to detox for heroin and alcohol.
[2018-11-18] MEDS ORDERED: METHADONE HCL 10 MG TABLET (FOR DETOX USE ONLY) PO ONE (14:00)
[2018-11-18] MEDS: chlordiazePOXIDE HCL 25 MG CAPSULE PO SCH ×2 (16:29→22:16)
[2018-11-18 16:31] LABS: HEMATOCRIT 40.8 % (32.4-45.2); HEMOGLOBIN 13.4 GM/dL (10.7-15.3); MCH 31.3 pg (25.7-33.7); MCHC 32.8 g/dl (32.0-36.0); MEAN CELL VOLUME 95.5 fl (80-96); MEAN PLT VOLUME 7.8 fl (7.5-11.1); PLATELET COUNT 267 K/MM3 (134-434); RBC 4.27 M/mm3 (3.60-5.2); RDW 14.3 % (11.6-15.6); WHITE BLOOD COUNT 5.9 K/mm3 (4.0-10.0)
[2018-11-18 16:39] LABS: ALBUMIN 3.6 g/dl (3.4-5.0); BILIRUBIN,TOTAL 0.3 mg/dL (0.2-1); BLOOD UREA NITROGEN 11.7 mg/dL (7-18); CALCIUM 9.3 mg/dL (8.5-10.1); CREATININE 0.7 mg/dL (0.55-1.3); TOT PROT 7.2 g/dl (6.4-8.2)
[2018-11-18] MEDS: THIAMINE HCL 100 MG TABLET (FP) PO SCH (22:16)
[2018-11-18] MEDS: MELATONIN 5 MG TABLETS PO PRN (22:17)
[2018-11-18] MEDS: hydrOXYzine PAMOATE 25 MG CAPSULE (FP) PO PRN (22:17)
[2018-11-19] MEDS: chlordiazePOXIDE HCL 25 MG CAPSULE PO SCH ×3 (05:48→22:10)
[2018-11-19] MEDS ORDERED: METHADONE HCL 10 MG TABLET (FOR DETOX USE ONLY) ONE (08:28)
[2018-11-19] MEDS ORDERED: METHADONE HCL 5 MG TABLET (FOR DETOX USE ONLY) ONE (08:29)
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
--- NOTE | 2018-11-19 09:53 | PN ---
[facility] CIWA - CIWA Score Nausea/Vomitin-Mild Nausea/No Vomiting Muscle Tremors: 4-Moderate,w/Arms Extend Anxiety: 3 Agitation: 3 Paroxysmal Sweats: 2 Orientation: 1-Uncertain about Date (date of the week) Tacttile Disturbances: 1-Very Mild Itch/Numbness Auditory Disturbances: 1-Very Mild Visual Disturbances: 1-Very Mild Sensitivity Headache: 1-Very Mild CIWA-Ar Total Score: 18 [facility] COWS - Scale Resting Pulse: 0= [place] 80 or Below Sweatin= Chills/Flushing Restless Observation: 0= Sits Still Pupil Size: 0= Normal to Room Light Bone or Joint Aches: 2= Severe Diffuse Aches Runny Nose/ Eye Tearin= Runny Nose/Eyes GI Upset > 30mins: 2= Nausea/Diarrhea (no diarrhea) Tremor Observation of Outstretched Hands: 2= Slight Tremor Visible Yawning Observation: 1= 1-2x During Session Anxiety or Irritability: 2=Irritable/Anxious Goose Flesh Skin: 3=Piloerection COWS Score: 15 S Progress Note (SOAP) Subjective: 33 years old female 6th patient [facility] admission since 2018 was admitted on 11/18/18 for alcohol and opiate withdrawal sx management doing well wtih librium and methadone detox regimen ambulating from bed to bathroom steady gait alert speech clearly and coherently Objective: 11/19/18 09:55 Vital Signs Temperature 98.2 F 11/19/18 09:16 Pulse Rate 73 11/19/18 09:16 Respiratory Rate 18 11/19/18 09:16 Blood Pressure 98/72 11/19/18 09:16 O2 Sat by Pulse Oximetry (%) Laboratory Last Values WBC 5.9 K/mm3 (4.0-10.0) 11/18/18 12:40 RBC 4.27 M/mm3 (3.60-5.2) 11/18/18 12:40 Hgb 13.4 GM/dL (10.7-15.3) 11/18/18 12:40 Hct 40.8 % (32.4-45.2) 11/18/18 12:40 MCV 95.5 fl (80-96) 11/18/18 12:40 MCH 31.3 pg (25.7-33.7) 11/18/18 12:40 MCHC 32.8 g/dl (32.0-36.0) 11/18/18 12:40 RDW 14.3 % (11.6-15.6) 11/18/18 12:40 Plt Count 267 K/MM3 (134-434) 11/18/18 12:40 MPV 7.8 fl (7.5-11.1) 11/18/18 12:40 Sodium 137 mmol/L (136-145) 11/18/18 12:40 Potassium 4.0 mmol/L (3.5-5.1) 11/18/18 12:40 Chloride 100 mmol/L (98-107) 11/18/18 12:40 Carbon Dioxide 31 mmol/L (21-32) 11/18/18 12:40 Anion Gap 6 MMOL/L (8-16) L 11/18/18 12:40 BUN 11.7 mg/dL (7-18) 11/18/18 12:40 Creatinine 0.7 mg/dL (0.55-1.3) 11/18/18 12:40 Est GFR (CKD-EPI)AfAm 131.02 11/18/18 12:40 Est GFR (CKD-EPI)NonAf 113.04 11/18/18 12:40 Random Glucose 93 mg/dL (74-106) 11/18/18 12:40 Calcium 9.3 mg/dL (8.5-10.1) 11/18/18 12:40 Total Bilirubin 0.3 mg/dL (0.2-1) 11/18/18 12:40 AST 24 U/L (15-37) 11/18/18 12:40 ALT 21 U/L (13-61) 11/18/18 12:40 Alkaline Phosphatase 112 U/L (45-117) 11/18/18 12:40 Total Protein 7.2 g/dl (6.4-8.2) 11/18/18 12:40 Albumin 3.6 g/dl (3.4-5.0) 11/18/18 12:40 POC Urine HCG, Qual Negative 11/18/18 11:53 RPR Titer Nonreactive (NONREACTIVE) 11/18/18 11:00 lab noted Assessment: 11/19/18 09:55 alcohol and opiate withdrawal sx Plan: continue librium and methadone detox regimen
[2018-11-19] MEDS ORDERED: METHADONE (DETOX) 20 MG, METHADONE (DETOX) 5 MG PO ONE (10:00)
[2018-11-19] MEDS: PRENATAL VITAMINS W/ FOLIC ACID TABLET (FP) PO SCH (10:20)
[2018-11-19] MEDS: SERTRALINE HCL 50 MG TABLET (FP) PO SCH (10:20)
[2018-11-19] MEDS: THIAMINE HCL 100 MG TABLET (FP) PO SCH (22:09)
[2018-11-19] MEDS: QUEtiapine FUMARATE 100 MG TABLET (FP) PO SCH (22:10)
[2018-11-19] MEDS: MELATONIN 5 MG TABLETS PO PRN (22:11)
[2018-11-20] MEDS: chlordiazePOXIDE 5 MG CAPSULE PO SCH ×3 (05:34→22:10)
[2018-11-20] MEDS ORDERED: METHADONE HCL 10 MG TABLET (FOR DETOX USE ONLY) PO ONE (10:00)
[2018-11-20] MEDS: PRENATAL VITAMINS W/ FOLIC ACID TABLET (FP) PO SCH (10:24)
[2018-11-20] MEDS: SERTRALINE HCL 50 MG TABLET (FP) PO SCH (10:24)
[2018-11-20] MEDS: hydrOXYzine PAMOATE 25 MG CAPSULE (FP) PO PRN (14:32)
[2018-11-20] MEDS: METHOCARBAMOL 500 MG TABLET PO PRN (14:32)
--- NOTE | 2018-11-20 15:05 | PN ---
S CIWA - CIWA Score Nausea/Vomitin Muscle Tremors: 2 Anxiety: 2 Agitation: 2 Paroxysmal Sweats: 1-Minimal Palms Moist Orientation: 0-Oriented Tacttile Disturbances: 1-Very Mild Itch/Numbness Auditory Disturbances: 0-None Visual Disturbances: 0-None Headache: 2-Mild CIWA-Ar Total Score: 12 BHS COWS - Scale Resting Pulse: 0= [place] 80 or Below Sweatin= No chills or Flushing Restless Observation: 1= Difficult to Sit Still Pupil Size: 1= Pupils >than Normal Bone or Joint Aches: 1= Mild Discomfort Runny Nose/ Eye Tearin= Nasal Congestion GI Upset > 30mins: 1= Stomach Cramp Tremor Observation of Outstretched Hands: 2= Slight Tremor Visible Yawning Observation: 1= 1-2x During Session Anxiety or Irritability: 2=Irritable/Anxious Goose Flesh Skin: 0=Smooth Skin COWS Score: 10 B[facility] Progress Note (SOAP) Subjective: alert,irritable,anxious,interrupted sleep,tremor,pain in the body and knees Objective: 11/20/18 15:04 Vital Signs Temperature 97.2 F L 11/20/18 13:23 Pulse Rate 70 11/20/18 13:23 Respiratory Rate 18 11/20/18 13:23 Blood Pressure 106/71 11/20/18 13:23 O2 Sat by Pulse Oximetry (%) Laboratory Last Values WBC 5.9 K/mm3 (4.0-10.0) 11/18/18 12:40 RBC 4.27 M/mm3 (3.60-5.2) 11/18/18 12:40 Hgb 13.4 GM/dL (10.7-15.3) 11/18/18 12:40 Hct 40.8 % (32.4-45.2) 11/18/18 12:40 MCV 95.5 fl (80-96) 11/18/18 12:40 MCH 31.3 pg (25.7-33.7) 11/18/18 12:40 MCHC 32.8 g/dl (32.0-36.0) 11/18/18 12:40 RDW 14.3 % (11.6-15.6) 11/18/18 12:40 Plt Count 267 K/MM3 (134-434) 11/18/18 12:40 MPV 7.8 fl (7.5-11.1) 11/18/18 12:40 Sodium 137 mmol/L (136-145) 11/18/18 12:40 Potassium 4.0 mmol/L (3.5-5.1) 11/18/18 12:40 Chloride 100 mmol/L (98-107) 11/18/18 12:40 Carbon Dioxide 31 mmol/L (21-32) 11/18/18 12:40 Anion Gap 6 MMOL/L (8-16) L 11/18/18 12:40 BUN 11.7 mg/dL (7-18) 11/18/18 12:40 Creatinine 0.7 mg/dL (0.55-1.3) 11/18/18 12:40 Est GFR (CKD-EPI)AfAm 131.02 11/18/18 12:40 Est GFR (CKD-EPI)NonAf 113.04 11/18/18 12:40 Random Glucose 93 mg/dL (74-106) 11/18/18 12:40 Calcium 9.3 mg/dL (8.5-10.1) 11/18/18 12:40 Total Bilirubin 0.3 mg/dL (0.2-1) 11/18/18 12:40 AST 24 U/L (15-37) 11/18/18 12:40 ALT 21 U/L (13-61) 11/18/18 12:40 Alkaline Phosphatase 112 U/L (45-117) 11/18/18 12:40 Total Protein 7.2 g/dl (6.4-8.2) 11/18/18 12:40 Albumin 3.6 g/dl (3.4-5.0) 11/18/18 12:40 POC Urine HCG, Qual Negative 11/18/18 11:53 RPR Titer Nonreactive (NONREACTIVE) 11/18/18 11:00 Assessment: 11/20/18 15:04 withdrawal symptom Plan: continue detox methadone and lbrium regimen
[2018-11-20] MEDS: QUEtiapine FUMARATE 100 MG TABLET (FP) PO SCH (22:10)
[2018-11-20] MEDS: THIAMINE HCL 100 MG TABLET (FP) PO SCH (22:10)
[2018-11-20] MEDS: MELATONIN 5 MG TABLETS PO PRN (22:10)
[2018-11-21] MEDS ORDERED: chlordiazePOXIDE HCL 10 MG CAPSULE PO PRN
[2018-11-21] MEDS: chlordiazePOXIDE HCL 10 MG CAPSULE PO SCH ×3 (05:53→21:42)
[2018-11-21] MEDS ORDERED: METHADONE HCL 10 MG TABLET (FOR DETOX USE ONLY) ONE (08:54)
[2018-11-21] MEDS ORDERED: METHADONE HCL 5 MG TABLET (FOR DETOX USE ONLY) ONE (08:54)
[2018-11-21] MEDS ORDERED: METHADONE (DETOX) 10 MG, METHADONE (DETOX) 5 MG PO ONE (10:00)
[2018-11-21] MEDS: PRENATAL VITAMINS W/ FOLIC ACID TABLET (FP) PO SCH (10:24)
[2018-11-21] MEDS: SERTRALINE HCL 50 MG TABLET (FP) PO SCH (10:25)
--- NOTE | 2018-11-21 14:04 | PN ---
[facility] CIWA - CIWA Score Nausea/Vomitin-No Nausea/No Vomiting Muscle Tremors: 2 Anxiety: 5 Agitation: 4-Moderately Restless Paroxysmal Sweats: 2 Orientation: 2-Disoriented Date<2 days Tacttile Disturbances: 0-None Auditory Disturbances: 0-None Visual Disturbances: 0-None Headache: 0-None Present CIWA-Ar Total Score: 15 BHS COWS - Scale Resting Pulse: 0= [place] 80 or Below Sweatin= Chills/Flushing Restless Observation: 1= Difficult to Sit Still Pupil Size: 0= Normal to Room Light Bone or Joint Aches: 2= Severe Diffuse Aches Runny Nose/ Eye Tearin= None GI Upset > 30mins: 0= None Tremor Observation of Outstretched Hands: 2= Slight Tremor Visible Yawning Observation: 1= 1-2x During Session Anxiety or Irritability: 4=Extreme Anxiety Goose Flesh Skin: 0=Smooth Skin COWS Score: 11 S Progress Note (SOAP) Subjective: Interrupted Sleep, Tremors, Anxious, Body Aches. Objective: PATIENT A & O X 2 (UNCERTAIN ABOUT CURRENT DAY / DATE). PATIENT OBSERVED AMBULATING ON DETOX UNIT UNASSISTED. IN NO ACUTE DISTRESS. 11/21/18 14:03 Vital Signs Temperature 98.7 F 11/21/18 13:42 Pulse Rate 70 11/21/18 13:42 Respiratory Rate 17 11/21/18 13:42 Blood Pressure 107/73 11/21/18 13:42 O2 Sat by Pulse Oximetry (%) Laboratory Tests 11/18/18 11/18/18 11/18/18 11:00 11:53 12:40 WBC 5.9 RBC 4.27 Hgb 13.4 Hct 40.8 MCV 95.5 MCH 31.3 MCHC 32.8 RDW 14.3 Plt Count 267 MPV 7.8 Sodium Potassium Chloride Carbon Dioxide Anion Gap BUN Creatinine Est GFR (CKD-EPI)AfAm Est GFR (CKD-EPI)NonAf Random Glucose Calcium Total Bilirubin AST ALT Alkaline Phosphatase Total Protein Albumin POC Urine HCG, Qual Negative RPR Titer Nonreactive 11/18/18 12:40 WBC RBC Hgb Hct MCV MCH MCHC RDW Plt Count MPV Sodium 137 Potassium 4.0 Chloride 100 Carbon Dioxide 31 Anion Gap 6 L BUN 11.7 Creatinine 0.7 Est GFR (CKD-EPI)AfAm 131.02 Est GFR (CKD-EPI)NonAf 113.04 Random Glucose 93 Calcium 9.3 Total Bilirubin 0.3 AST 24 ALT 21 Alkaline Phosphatase 112 Total Protein 7.2 Albumin 3.6 POC Urine HCG, Qual RPR Titer LABS NOTED. Assessment: 11/21/18 14:03 WITHDRAWAL SYMPTOMS. Plan: CONTINUE DETOX. INCREASE DAILY PO WATER INTAKE.
[2018-11-21] MEDS: METHOCARBAMOL 500 MG TABLET PO PRN (19:17)
[2018-11-21] MEDS: hydrOXYzine PAMOATE 25 MG CAPSULE (FP) PO PRN (19:17)
[2018-11-21] MEDS: MELATONIN 5 MG TABLETS PO PRN (21:42)
[2018-11-21] MEDS: THIAMINE HCL 100 MG TABLET (FP) PO SCH (21:42)
[2018-11-21] MEDS: QUEtiapine FUMARATE 100 MG TABLET (FP) PO SCH (21:42)
[2018-11-22] MEDS ORDERED: chlordiazePOXIDE HCL 10 MG CAPSULE PO ONE (05:00)
[2018-11-22] MEDS: METHOCARBAMOL 500 MG TABLET PO PRN ×3 (06:12→22:19)
[2018-11-22] MEDS: hydrOXYzine PAMOATE 25 MG CAPSULE (FP) PO PRN ×2 (06:14→13:48)
--- NOTE | 2018-11-22 09:12 | PN ---
[facility] CIWA - CIWA Score Nausea/Vomitin-No Nausea/No Vomiting Muscle Tremors: 3 Anxiety: 2 Agitation: 2 Paroxysmal Sweats: 1-Minimal Palms Moist Orientation: 0-Oriented Tacttile Disturbances: 0-None Auditory Disturbances: 0-None Visual Disturbances: 0-None Headache: 0-None Present (no headache but long history of arthritis lumbar spin) CIWA-Ar Total Score: 8 S Progress Note (SOAP) Subjective: 33 years old female admitted on 11/18/18 doing well with librium and methadone detox regimen sitting on the edge of the bed eating breakfast no trouble chewing no trouble swallowing mild nausea no vomiting no abdominal discomfort c/o chronic lumbar spin arthritis with pain lidocaine patch ambulating with cane x 2 years hesitate to discuss aftercare with staff encourage community support meeting Objective: 11/22/18 09:11 Vital Signs Temperature 97.1 F L 11/22/18 06:55 Pulse Rate 66 11/22/18 06:55 Respiratory Rate 16 11/22/18 06:55 Blood Pressure 94/62 11/22/18 06:55 O2 Sat by Pulse Oximetry (%) Laboratory Last Values WBC 5.9 K/mm3 (4.0-10.0) 11/18/18 12:40 RBC 4.27 M/mm3 (3.60-5.2) 11/18/18 12:40 Hgb 13.4 GM/dL (10.7-15.3) 11/18/18 12:40 Hct 40.8 % (32.4-45.2) 11/18/18 12:40 MCV 95.5 fl (80-96) 11/18/18 12:40 MCH 31.3 pg (25.7-33.7) 11/18/18 12:40 MCHC 32.8 g/dl (32.0-36.0) 11/18/18 12:40 RDW 14.3 % (11.6-15.6) 11/18/18 12:40 Plt Count 267 K/MM3 (134-434) 11/18/18 12:40 MPV 7.8 fl (7.5-11.1) 11/18/18 12:40 Sodium 137 mmol/L (136-145) 11/18/18 12:40 Potassium 4.0 mmol/L (3.5-5.1) 11/18/18 12:40 Chloride 100 mmol/L (98-107) 11/18/18 12:40 Carbon Dioxide 31 mmol/L (21-32) 11/18/18 12:40 Anion Gap 6 MMOL/L (8-16) L 11/18/18 12:40 BUN 11.7 mg/dL (7-18) 11/18/18 12:40 Creatinine 0.7 mg/dL (0.55-1.3) 11/18/18 12:40 Est GFR (CKD-EPI)AfAm 131.02 11/18/18 12:40 Est GFR (CKD-EPI)NonAf 113.04 11/18/18 12:40 Random Glucose 93 mg/dL (74-106) 11/18/18 12:40 Calcium 9.3 mg/dL (8.5-10.1) 11/18/18 12:40 Total Bilirubin 0.3 mg/dL (0.2-1) 11/18/18 12:40 AST 24 U/L (15-37) 11/18/18 12:40 ALT 21 U/L (13-61) 11/18/18 12:40 Alkaline Phosphatase 112 U/L (45-117) 11/18/18 12:40 Total Protein 7.2 g/dl (6.4-8.2) 11/18/18 12:40 Albumin 3.6 g/dl (3.4-5.0) 11/18/18 12:40 POC Urine HCG, Qual Negative 11/18/18 11:53 RPR Titer Nonreactive (NONREACTIVE) 11/18/18 11:00 lab noted Assessment: 11/22/18 09:11 alcohol and opiate withdrawal sx Plan: continue librium and methadone detox regimen
[2018-11-22] MEDS ORDERED: METHADONE HCL 10 MG TABLET (FOR DETOX USE ONLY) PO ONE (10:00)
[2018-11-22] MEDS: PRENATAL VITAMINS W/ FOLIC ACID TABLET (FP) PO SCH (10:10)
[2018-11-22] MEDS: SERTRALINE HCL 50 MG TABLET (FP) PO SCH (10:10)
[2018-11-22] MEDS: THIAMINE HCL 100 MG TABLET (FP) PO SCH (22:18)
[2018-11-22] MEDS: QUEtiapine FUMARATE 100 MG TABLET (FP) PO SCH (22:18)
[2018-11-22] MEDS: MELATONIN 5 MG TABLETS PO PRN (22:18)
[2018-11-23] MEDS ORDERED: METHADONE HCL 5 MG TABLET (FOR DETOX USE ONLY) PO ONE (06:00)
[2018-11-23 06:45] VITALS: BP 101/69; PULSE 66; TEMP 96.9
--- NOTE | 2018-11-23 10:06 | DS ---
[facility] Detox Discharge Summary Admission Date: 11/18/18 Discharge Date: 11/23/18 - History Present History: Alcohol Dependence, Opioid Dependence Additional Comments: did well with librium and methadone detox regimen no complication through out the detox stay seen by psychiatrist treated with zoloft and seroquel patient is alert oriented x 3 steady gait speech clearly coherently cardiac S1S2 regular rate rhythm ekg indicates right atrial enlargement no wheezing no shortness of breath Pertinent Past History: hypertension hyperlipidemia - Physical Exam Results Vital Signs: Vital Signs Temperature 96.9 F L 11/23/18 06:44 Pulse Rate 66 11/23/18 06:44 Respiratory Rate 18 11/23/18 06:44 Blood Pressure 101/69 11/23/18 06:44 O2 Sat by Pulse Oximetry (%) Pertinent Admission Physical Exam Findings: alcohol and opiate withdrawal sx Laboratory Last Values WBC 5.9 K/mm3 (4.0-10.0) 11/18/18 12:40 RBC 4.27 M/mm3 (3.60-5.2) 11/18/18 12:40 Hgb 13.4 GM/dL (10.7-15.3) 11/18/18 12:40 Hct 40.8 % (32.4-45.2) 11/18/18 12:40 MCV 95.5 fl (80-96) 11/18/18 12:40 MCH 31.3 pg (25.7-33.7) 11/18/18 12:40 MCHC 32.8 g/dl (32.0-36.0) 11/18/18 12:40 RDW 14.3 % (11.6-15.6) 11/18/18 12:40 Plt Count 267 K/MM3 (134-434) 11/18/18 12:40 MPV 7.8 fl (7.5-11.1) 11/18/18 12:40 Sodium 137 mmol/L (136-145) 11/18/18 12:40 Potassium 4.0 mmol/L (3.5-5.1) 11/18/18 12:40 Chloride 100 mmol/L (98-107) 11/18/18 12:40 Carbon Dioxide 31 mmol/L (21-32) 11/18/18 12:40 Anion Gap 6 MMOL/L (8-16) L 11/18/18 12:40 BUN 11.7 mg/dL (7-18) 11/18/18 12:40 Creatinine 0.7 mg/dL (0.55-1.3) 11/18/18 12:40 Est GFR (CKD-EPI)AfAm 131.02 11/18/18 12:40 Est GFR (CKD-EPI)NonAf 113.04 11/18/18 12:40 Random Glucose 93 mg/dL (74-106) 11/18/18 12:40 Calcium 9.3 mg/dL (8.5-10.1) 11/18/18 12:40 Total Bilirubin 0.3 mg/dL (0.2-1) 11/18/18 12:40 AST 24 U/L (15-37) 11/18/18 12:40 ALT 21 U/L (13-61) 11/18/18 12:40 Alkaline Phosphatase 112 U/L (45-117) 11/18/18 12:40 Total Protein 7.2 g/dl (6.4-8.2) 11/18/18 12:40 Albumin 3.6 g/dl (3.4-5.0) 11/18/18 12:40 POC Urine HCG, Qual Negative 11/18/18 11:53 RPR Titer Nonreactive (NONREACTIVE) 11/18/18 11:00 lab noted - Treatment Hospital Course: Detox Protocol Followed, Detoxed Safely, Responded well, Discharged Condition Good, Rehab Referral Accepted Patient has Accepted a Rehab Referral to: [facility] - Medication Discharge Medications: Ambulatory Orders Sertraline HCl [Zoloft -] 50 mg PO DAILY 06/21/18 Quetiapine Fumarate [Seroquel -] 100 mg PO HS #30 tablet 07/01/18 traZODone HCL [Desyrel -] 50 mg PO HS #30 tablet 07/01/18 - Diagnosis (1) Alcohol dependence with uncomplicated withdrawal Status: Acute (2) Opioid dependence with withdrawal Status: Acute (3) Substance induced mood disorder Status: Suspected (4) Nicotine dependence Status: Acute Qualifiers: Nicotine product type: cigarettes Substance use status: in withdrawal Qualified Code(s): F17.213 - Nicotine dependence, cigarettes, with withdrawal - AMA Did Patient Leave Against Medical Advice: No CIWA Score - CIWA Score Nausea/Vomitin-No Nausea/No Vomiting Muscle Tremors: 2 Anxiety: 1-Mildly Anxious Agitation: 1-Slight > Activity Paroxysmal Sweats: No Perspiration Orientation: 0-Oriented Tacttile Disturbances: 0-None Auditory Disturbances: 0-None Visual Disturbances: 0-None Headache: 0-None Present (no headache but long history of arthritis lumbar spin) CIWA-Ar Total Score: 4 COWS (PN) - Opiate Withdrawal Resting Pulse: 0= [place] 80 or Below Sweatin= Chills/Flushing Restless Observation: 0= Sits Still Pupil Size: 0= Normal to Room Light Bone or Joint Aches: 1= Mild Discomfort Runny Nose/ Eye Tearin= None GI Upset > 30mins: 0= None Tremor Observation of Outstretched Hands: 1= Tremor [place], Not Seen Yawning Observation: 0= None Anxiety or Irritability: 1=Feels Anxious/Irritable Goose Flesh Skin: 0=Smooth Skin COWS Score: 4
== END 2018-11-23 09:03 | disposition home or self-care (01) | DRG 773 ==
LOC: YASAS 10:31 → Y3N 12:52
PROVIDERS: ADMIT Surgery; ATTEND Surgery
PROC: HZ2ZZZZ Detoxification Services for Substance Abuse Treatment (ICD-10-PCS; principal; 2018-11-18)
DX: F10.230 Alcohol dependence with withdrawal, uncomplicated (principal); F11.23 Opioid dependence with withdrawal; F14.20 Cocaine dependence, uncomplicated; F17.213 Nicotine dependence, cigarettes, with withdrawal; F19.24 Other psychoactive substance dependence with psychoactive substance-induced mood disorder; F19.282 Other psychoactive substance dependence with psychoactive substance-induced sleep disorder; F43.10 Post-traumatic stress disorder, unspecified; F32.9 Major depressive disorder, single episode, unspecified; M17.0 Bilateral primary osteoarthritis of knee; M54.5 Low back pain; G89.29 Other chronic pain; Z86.19 Personal history of other infectious and parasitic diseases; Z91.5 Personal history of self-harm; Z59.0 Homelessness
CPT/HCPCS: 36415; 80053; 81025; 85027; 86593; Q0162

== ENCOUNTER 2018-12-18 10:26 | Inpatient (IN) | payer OTHER ==
[2018-12-18 10:58] VITALS: BMI 25.4
--- NOTE | 2018-12-18 12:29 | HP ---
COWS - Scale Resting Pulse: 0= [place] 80 or Below Sweatin=Flushed/Facial Moisture Restless Observation: 1= Difficult to Sit Still Pupil Size: 0= Normal to Room Light Bone or Joint Aches: 0= None Runny Nose/ Eye Tearin= Runny Nose/Eyes GI Upset > 30mins: 2= Nausea/Diarrhea Tremor Observation: 2= Slight Tremor Visible Yawning Observation: 1= 1-2x During Session Anxiety or Irritability: 2=Irritable/Anxious Goose Flesh Skin: 0=Smooth Skin COWS Score: 12 CIWA Score Nausea/Vomitin Muscle Tremors: 2 Anxiety: 3 Agitation: 3 Paroxysmal Sweats: 2 Orientation: 1-Uncertain about Date Tacttile Disturbances: 0-None Auditory Disturbances: 0-None Visual Disturbances: 0-None Headache: 1-Very Mild CIWA-Ar Total Score: 15 - Admission Criteria OASAS Guidelines: Admission for Medically Managed Detox: Requires at least one of the followin. CIWA greater than 12 2. Seizures within the past 24 hours 3. Delirium tremens within the past 24 hours 4. Hallucinations within the past 24 hours 5. Acute intervention needed for co occurring medical disorder 6. Acute intervention needed for co occurring psychiatric disorder 7. Severe withdrawal that cannot be handled at a lower level of care (continued vomiting, continued diarrhea, abnormal vital signs) requiring intravenous medication and/or fluids 8. Admitting History and Physical - Past Medical History ...LMP: 06/24/18 - Smoking History Smoking history: Current every day smoker Have you smoked in the past 12 months: Yes Aproximately how many cigarettes per day: 20 - Alcohol/Substance Use Hx Alcohol Use: Yes (1-2pints) Admission [facility] Chief Complaint: Detox Heroin/Cocaine Allergies/Adverse Reactions: Allergies Allergy/AdvReac Type Severity Reaction Status Date / Time Fish Containing Products Allergy Severe Difficulty Verified 12/18/18 10:53 Breathing No Known Drug Allergies Allergy Verified 12/18/18 10:53 History of Present Illness: 33 year old female with a past medical history of pulmonary embolism in 2012 ( smoking on contraceptives, not on AC), 1 miscarriage, 1 stillbirth (from thrombosis in placenta 8 years ago), arthritis in b/l knees, depression (on seroquel 100mg/zoloft 50mg), insomnia (on trazodone 50mg), PTSD here for detox from heroin, cocaine, alcohol. Longest time sober was 3-4 years around 6 years ago. Previous suicide attempts last in 2006, no thoughts of hurting herself now. No legal trouble at the moment. Alcohol: 1.5 pints vodka every day, last drink yesterday, started at 20 years old; never had withdrawal seizure; Heroin: 12 bags daily, snorts it; last used last night. Never had withdrawal seizure; never OD'd; first started at 22 years old; was formerly on methadone 95mg 5 years ago, stopped while in [place]. 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 [place] Kids: 2 children all healthy Exam Limitations: No Limitations - Ebola screening Have you traveled outside of the country in the last 21 days: No Have you had contact with anyone from an Ebola affected area: No Do you have a fever: No - Review of Systems Constitutional: Diaphoresis EENT: reports: Blurred Vision, Nose Congestion, Dental Problems, Odynophagia Respiratory: reports: No Symptoms reported Cardiac: reports: No Symptoms Reported GI: reports: Blood Streaked Bowels, Nausea : reports: No Symptoms Reported Musculoskeletal: reports: Back Pain Integumentary: reports: Bruising Neuro: reports: Headache Endocrine: reports: No Symptoms Reported Hematology: reports: Blood Clots Psychiatric: reports: Judgement Intact, Mood/Affect Appropiate, Orientated x3, Agitated, Anxious, Depressed Patient History - Patient Medical History Hx Anemia: No Hx Asthma: No Hx Chronic Obstructive Pulmonary Disease (COPD): No Hx Cancer: No Hx Cardiac Disorders: No Hx Congestive Heart Failure: No Hx Hypertension: No Hx Hypercholesterolemia: No Hx Pacemaker: No HX Cerebrovascular Accident: No Hx Seizures: No Hx Dementia: No Hx Diabetes: No Hx Gastrointestinal Disorders: No Hx Liver Disease: No Hx Genitourinary Disorders: No Hx Sexually Transmitted Disorders: No Hx Renal Disease (ESRD): No Hx Thyroid Disease: No Hx Human Immunodeficiency Virus (HIV): No (03/28 negative) Hx Hepatitis C: No Hx Depression: Yes Hx Suicide Attempt: No Hx Bipolar Disorder: No Hx Schizophrenia: No - Patient Surgical History Past Surgical History: No Hx Neurologic Surgery: No Hx Cataract Extraction: No Hx Cardiac Surgery: No Hx Lung Surgery: No (HISTORY OF PULMONARY EMBOLISM 2002) Hx Breast Surgery: No Hx Breast Biopsy: No Hx Abdominal Surgery: No Hx Appendectomy: No Hx Cholecystectomy: No Hx Genitourinary Surgery: No Hx Section: No Hx Orthopedic Surgery: Yes (RIGHT FEMORAL FRACTURE 1991at age of 65 years old) Hx Hysterectomy: No Anesthesia Reaction: No - PPD History Date: 12/06/17 Results: 0mm - Reproductive History Last Menstrual Period: 06/24/18 - Smoking Cessation Smoking history: Current every day smoker Have you smoked in the past 12 months: Yes Aproximately how many cigarettes per day: 20 Cigars Per Day: 0 Hx Chewing Tobacco Use: No Initiated information on smoking cessation: Yes 'Breaking Loose' booklet given: 12/18/18 - Substances abused Heroin Substance route: Inhalation Frequency: Daily Amount used: 8-12 BAGS Age of first use: 22 Date of last use: 12/17/18 Cocaine Substance route: Inhalation Frequency: 1-2 times per week Amount used: $20 Age of first use: 18 Date of last use: 12/16/18 Alcohol Substance route: Oral Frequency: Daily Amount used: 1 1/2 pints of liquor Age of first use: 22 Date of last use: 12/17/18 Admission Physical Exam S - Vital Signs Vital Signs: Vital Signs - 24 hr 12/18/18 12/18/18 10:52 11:41 Temperature 97.4 F L 97.4 F L Pulse Rate 73 73 Respiratory 18 18 Rate Blood Pressure 93/63 93/63 - Physical General Appearance: Yes: No Apparent Distress, Appropriately Dressed HEENTM: Yes: Normocephalic, Normal Voice, Pharynx Normal Respiratory: Yes: Within Normal Limits, Lungs Clear, Normal Breath Sounds Neck: Yes: Within Normal Limits Breast: Yes: Within Normal Limits Cardiology: Yes: Regular Rhythm, Regular Rate Abdominal: Yes: Normal Bowel Sounds, Non Tender, Flat Musculoskeletal: Yes: full range of Motion, Gait Steady Extremities: Yes: Normal Capillary Refill, Normal Inspection, Normal Range of Motion, Non-Tender Neurological: Yes: farmer general II-XII NML intact, Fully Oriented, Alert, Motor Strength 5/5, Normal Mood/Affect Integumentary: Yes: Dry, Warm Cleared for Admission S - Detox or Rehab [facility] Level of Care: Medically Supervised Breathalyzer - Breathalyzer Breathalyzer: 0 POC Urine test - Test device test lot number: [id number] Expiration date: 11/08/19 - Control test control: Yes Urine Drug Screen - Test Device Lot number: [id number] Expiration date: 08/07/20 - Control Is test valid?: Yes - Results Drug screen NEGATIVE: No Urine drug screen results: KIKE-Cocaine, FEN-Fentanyl, MOP-Opiates, OXY-Oxycodone , MTD-Methadone, BZO-Benzodiazepines Inpatient Rehab Admission - Rehab Decision to Admit Inpatient rehab admission?: No
--- NOTE | 2018-12-18 12:43 | PN ---
"Teaching Attending Note Name of Resident: Misbah Melendez ATTENDING PHYSICIAN STATEMENT I saw and evaluated the patient. I reviewed the resident's note and discussed the case with the resident. I agree with the resident's findings and plan as documented. SUBJECTIVE: 33 year old female here for etoh and opiate detox , reports alcohol 1.5 pints vodka / day, latest alcohol intake was yesterday, first age of use t 20 years old; denies withdrawal seizure; longest sobriety was 3-4 years around 6 years ago , Heroin: 12 bags daily via inhalation ; last used last night , current symptoms as above , denies OD , first age of use 22 , 5 yrs ago on MMTP [place] LES MDD 8995 mg , gradual taper when moving to [place] methadone - reports illicit use 30 mg a few days ago oxycodone - denies fentanyl - denies benzo - denies Cocaine: $20 per bag every other day, snorts Cigarettes: 1/2 pack per day since 15 years old PMHX : pulmonary embolism in 2011 (smoking on contraceptives, not on AC), 1 miscarriage, 1 stillbirth 8 yrs ago ( thrombosis placenta ), arthritis in b/l knees, depression (on seroquel 100mg/zoloft 50mg), insomnia (on trazodone 50mg) , PTSD , previous suicide attempts latest in 2006, denies current SI / HI Allergies: fish (tongue itchy) Living Situation:w/ mother 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 OBJECTIVE: wnwd , anxious , agitated , mild tremors . This report was requested by: Gisele Randhawa | Reference #: [id number] Others' Prescriptions Patient Name: Melody Penny Date: 1985 Address: [place] [address] Sex: Female Rx Written Rx Dispensed Drug Quantity Days Supply Prescriber Name 07/27/2018 07/28/2018 chlordiazepoxide 25 mg capsule 8 2 Michael Bhatt) ( detox ) Vital Signs - 24 hr 12/18/18 12/18/18 10:52 11:41 Temperature 97.4 F L 97.4 F L Pulse Rate 73 73 Respiratory 18 18 Rate Blood Pressure 93/63 93/63 ASSESSMENT AND PLAN: Opioid dependence - Methadone detox Alcohol dependence - Librium detox Cocaine dependence Nicotine dependence - smoking cessation counseling"
[2018-12-18] MEDS ORDERED: MAGNESIUM HYDROX 2400MG/30ML ORAL SUSPENSION 30 ML CUP PO PRN (12:47)
[2018-12-18] MEDS ORDERED: BISMUTH SUBSALICYLATE 524 MG/30 ML UD PO PRN (12:47)
[2018-12-18] MEDS ORDERED: MAGNESIUM CITRATE 300 ML BOTTLE PO PRN (12:47)
[2018-12-18] MEDS ORDERED: ACETAMINOPHEN 325 MG TABLET (FP) PO PRN ×2 (12:47)
[2018-12-18] MEDS ORDERED: chlordiazePOXIDE HCL 10 MG CAPSULE PO PRN (12:47)
[2018-12-18] MEDS ORDERED: METHADONE HCL 10 MG TABLET (FOR DETOX USE ONLY) PO ONE (12:47)
[2018-12-18] MEDS ORDERED: cloNIDine HCL 0.1 MG TABLET PO PRN (12:47)
[2018-12-18] MEDS ORDERED: MENTHOL/PHENOL 1 EACH UD MM PRN (12:47)
[2018-12-18] MEDS ORDERED: MAG HYDROX/AL HYDROX/SIMETH 30 ML UNIT-DOSE CUP PO PRN (12:47)
[2018-12-18] MEDS: chlordiazePOXIDE HCL 25 MG CAPSULE PO SCH ×2 (14:42→22:20)
[2018-12-18 17:05] LABS: HEMATOCRIT 38.4 % (32.4-45.2); HEMOGLOBIN 12.5 GM/dL (10.7-15.3); MCH 31.4 pg (25.7-33.7); MCHC 32.6 g/dl (32.0-36.0); MEAN CELL VOLUME 96.2 fl (80-96); MEAN PLT VOLUME 8.3 fl (7.5-11.1); PLATELET COUNT 318 K/MM3 (134-434); RBC 3.99 M/mm3 (3.60-5.2); RDW 14.4 % (11.6-15.6); WHITE BLOOD COUNT 9.5 K/mm3 (4.0-10.0)
[2018-12-18 17:15] LABS: ALBUMIN 3.6 g/dl (3.4-5.0); BILIRUBIN,TOTAL 0.2 mg/dL (0.2-1); BLOOD UREA NITROGEN 18.8 mg/dL (7-18); CALCIUM 8.6 mg/dL (8.5-10.1); CREATININE 0.8 mg/dL (0.55-1.3); POTASSIUM 4.2 mmol/L (3.5-5.1); TOT PROT 7.2 g/dl (6.4-8.2)
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
[2018-12-18] MEDS: METHOCARBAMOL 500 MG TABLET PO PRN (17:56)
[2018-12-18] MEDS: THIAMINE HCL 100 MG TABLET (FP) PO SCH (22:19)
[2018-12-18] MEDS: QUEtiapine FUMARATE 50 MG TABLET PO SCH (22:20)
[2018-12-18] MEDS: IBUPROFEN 400 MG TABLET (FP) PO PRN (22:33)
[2018-12-19] MEDS: chlordiazePOXIDE HCL 25 MG CAPSULE PO SCH ×3 (05:52→21:31)
[2018-12-19] MEDS ORDERED: METHADONE (DETOX) 20 MG, METHADONE (DETOX) 5 MG PO ONE (10:00)
[2018-12-19] MEDS ORDERED: METHADONE HCL 10 MG TABLET (FOR DETOX USE ONLY) ONE (10:41)
[2018-12-19] MEDS ORDERED: METHADONE HCL 5 MG TABLET (FOR DETOX USE ONLY) ONE (10:41)
[2018-12-19] MEDS: SERTRALINE HCL 50 MG TABLET (FP) PO SCH (10:56)
[2018-12-19] MEDS: PRENATAL VITAMINS W/ FOLIC ACID TABLET (FP) PO SCH (10:56)
[2018-12-19] MEDS ORDERED: FLU VACCINE QUAD 60 MCG/0.5 ML (MDV 19-20) IM ONE (12:00)
[2018-12-19] MEDS ORDERED: LIDOCAINE VISCOUS 2% ORAL/TOP 100 ML BOTTLE MM PRN (13:37)
--- NOTE | 2018-12-19 13:42 | PN ---
[facility] CIWA - CIWA Score Nausea/Vomitin-No Nausea/No Vomiting Muscle Tremors: 3 Anxiety: 3 Agitation: 4-Moderately Restless Paroxysmal Sweats: 3 Orientation: 0-Oriented Tacttile Disturbances: 0-None Auditory Disturbances: 0-None Visual Disturbances: 0-None Headache: 0-None Present CIWA-Ar Total Score: 13 BHS COWS - Scale Resting Pulse: 0= [place] 80 or Below Sweatin= Chills/Flushing Restless Observation: 1= Difficult to Sit Still Pupil Size: 0= Normal to Room Light Bone or Joint Aches: 2= Severe Diffuse Aches Runny Nose/ Eye Tearin= Runny Nose/Eyes GI Upset > 30mins: 0= None Tremor Observation of Outstretched Hands: 1= Tremor [place], Not Seen Yawning Observation: 2= >3x During Session Anxiety or Irritability: 2=Irritable/Anxious Goose Flesh Skin: 0=Smooth Skin COWS Score: 11 S Progress Note (SOAP) Subjective: tooth ache maybe an infections sweats shakes interrupted sleep body aches restless i need to see psych Objective: 12/19/18 13:39 Vital Signs Temperature 97.9 F 12/18/18 21:05 Pulse Rate 67 12/18/18 21:05 Respiratory Rate 18 12/19/18 00:30 Blood Pressure 104/61 12/18/18 21:05 O2 Sat by Pulse Oximetry (%) Laboratory Tests 12/18/18 12/18/18 12/18/18 13:15 13:15 13:15 WBC 9.5 RBC 3.99 Hgb 12.5 Hct 38.4 MCV 96.2 H MCH 31.4 MCHC 32.6 RDW 14.4 Plt Count 318 MPV 8.3 Sodium 141 Potassium 4.2 Chloride 105 Carbon Dioxide 28 Anion Gap 7 L BUN 18.8 H Creatinine 0.8 Est GFR (CKD-EPI)AfAm 111.48 Est GFR (CKD-EPI)NonAf 96.19 Random Glucose 82 Calcium 8.6 Total Bilirubin 0.2 AST 20 ALT 33 Alkaline Phosphatase 115 Total Protein 7.2 Albumin 3.6 RPR Titer Nonreactive HIV 1&2 Ag/Ab, 4th Gen HIV 1&2 Antibody Screen HIV P24 Antigen 12/18/18 12/19/18 13:15 05:50 WBC RBC Hgb Hct MCV MCH MCHC RDW Plt Count MPV Sodium Potassium Chloride Carbon Dioxide Anion Gap BUN Creatinine Est GFR (CKD-EPI)AfAm Est GFR (CKD-EPI)NonAf Random Glucose Calcium Total Bilirubin AST ALT Alkaline Phosphatase Total Protein Albumin RPR Titer HIV 1&2 Ag/Ab, 4th Gen Non reactive HIV 1&2 Antibody Screen Negative HIV P24 Antigen Negative labs noted aaox3 ambulating no acute distress Assessment: 12/19/18 13:40 withdrawal mouth assessed; tooth decay noted; puffy cheek note around tooth decay. early sign of infection Plan: continue detox increase fluids lidocaine s/s ordered amoxicillin ordered psych ordered
[2018-12-19] MEDS: AMOX TR/POT CLAV 500MG/125MG TABLETS (FP) PO SCH (17:38)
[2018-12-19] MEDS: METHOCARBAMOL 500 MG TABLET PO PRN (17:38)
[2018-12-19] MEDS: THIAMINE HCL 100 MG TABLET (FP) PO SCH (21:31)
[2018-12-19] MEDS: QUEtiapine FUMARATE 50 MG TABLET PO SCH (21:31)
[2018-12-19] MEDS: MELATONIN 5 MG TABLETS PO PRN (21:33)
[2018-12-20] MEDS: chlordiazePOXIDE 5 MG CAPSULE PO SCH ×3 (06:44→21:26)
[2018-12-20] MEDS: AMOX TR/POT CLAV 500MG/125MG TABLETS (FP) PO SCH ×2 (07:22→18:20)
[2018-12-20] MEDS ORDERED: METHADONE HCL 10 MG TABLET (FOR DETOX USE ONLY) PO ONE (10:00)
[2018-12-20] MEDS: SERTRALINE HCL 50 MG TABLET (FP) PO SCH (10:35)
[2018-12-20] MEDS: PRENATAL VITAMINS W/ FOLIC ACID TABLET (FP) PO SCH (10:35)
[2018-12-20] MEDS: METHOCARBAMOL 500 MG TABLET PO PRN (10:37)
--- NOTE | 2018-12-20 12:20 | PN ---
Psychiatric Progress Note Vital Signs: Vital Signs Period Temp Pulse Resp BP Sys/Lucas Pulse Ox Last 24 Hr 96.7 F-99.7 F 68-92 18-18 95-109/56-67 Date of Session: 12/20/18 Chief Complaint:: " I'm not sleeping well." HPI: Patient admitted to for alcohol and opiate dependence. Patient c/o insomnia. ROS: Patient is coherent, alert + oriented X3. Current Medications: Active Medications Generic Name Dose Route Start Last Admin Trade Name Freq PRN Reason Stop Dose Admin Acetaminophen 650 mg 12/18/18 12:47 Tylenol - PO Q6H PRN PAIN LEVEL 4 - 6 Acetaminophen 650 mg 12/18/18 12:47 12/19/18 19:29 Tylenol - PO 650 mg Q6H PRN Administration FEVER Al Hydroxide/Mg Hydroxide 30 ml 12/18/18 12:47 Mylanta Oral Suspension - PO Q6H PRN DYSPEPSIA Amoxicillin/Clavulanate Potassium 1 tab 12/19/18 17:30 12/20/18 07:22 Augmentin - 500mg Tablet PO 12/26/18 17:29 1 tab BID@0800,1730 OMAR Administration Bismuth Subsalicylate 524 mg 12/18/18 12:47 Pepto-Bismol - PO Q1H PRN DIARRHEA Chlordiazepoxide HCl 10 mg 12/21/18 00:00 Librium - PO 12/21/18 23:59 Q12H PRN Signs/symptoms of Withdrawal Chlordiazepoxide HCl 10 mg 12/18/18 12:47 12/18/18 17:57 Librium - PO 12/20/18 23:59 10 mg Q8H PRN Administration Signs/symptoms of Withdrawal Chlordiazepoxide HCl 15 mg 12/20/18 05:00 12/20/18 06:44 Librium - PO 12/20/18 21:01 15 mg Q8H OMAR Administration Chlordiazepoxide HCl 10 mg 12/21/18 05:00 Librium - PO 12/21/18 21:01 Q8H OMAR Chlordiazepoxide HCl 10 mg 12/22/18 05:00 Librium - PO 12/22/18 05:01 ONCE ONE Clonidine 0.1 mg 12/18/18 12:47 Catapres - PO 12/20/18 23:59 Q4H PRN Withdrawal Symptoms Eucalyptus/Menthol/Phenol/Sorbitol 1 each 12/18/18 12:47 Cepastat Lozenge - MM 12/24/18 12:48 Q4H PRN SORE THROAT Hydroxyzine Pamoate 25 mg 12/18/18 12:47 Vistaril - PO 12/24/18 12:48 Q6H PRN For Anxiety Ibuprofen 400 mg 12/18/18 12:47 12/18/18 22:33 Motrin - PO 400 mg Q6H PRN Administration PAIN LEVEL 1 - 3 Lidocaine HCl 15 ml 12/19/18 13:37 Xylocaine 2% Viscous MM Q6H PRN FOR TOOTHACHE Magnesium Citrate 300 ml 12/18/18 12:47 Citroma - PO Q48H PRN CONSTIPATION Magnesium Hydroxide 30 ml 12/18/18 12:47 Milk Of Magnesia - PO PRN PRN CONSTIPATION Melatonin 5 mg 12/18/18 12:47 12/19/18 21:33 Melatonin PO 5 mg HS PRN Administration INSOMNIA Methadone HCl 10 mg/ Methadone 15 mg 12/21/18 10:00 HCl 5 mg PO 12/21/18 10:01 ONCE ONE Methadone HCl 5 mg 12/23/18 06:00 Dolophine - PO 12/23/18 06:01 ONCE@0600 ONE Methadone HCl 10 mg 12/22/18 10:00 Dolophine - PO 12/22/18 10:01 ONCE ONE Methocarbamol 500 mg 12/18/18 12:47 12/20/18 10:37 Robaxin - PO 12/24/18 12:48 500 mg Q6H PRN Administration MUSCLE SPASMS Multivit/Folic Acid/Iron 1 tab 12/19/18 10:00 12/20/18 10:35 Vitamins (Sjr) - PO 1 tab DAILY OMAR Administration Quetiapine Fumarate 50 mg 12/18/18 22:00 12/19/18 21:31 Seroquel - PO 50 mg HS OMAR Administration Sertraline HCl 50 mg 12/19/18 10:00 12/20/18 10:35 Zoloft - PO 50 mg DAILY OMAR Administration Thiamine HCl 100 mg 12/18/18 22:00 12/19/18 21:31 Vitamin B1 - PO 100 mg HS OMAR Administration Medication(s) Change(s): Yes. Current Side Effect: No Lab tests ordered: No Lab tests reviewed: Yes Provider note:: Patient reports difficulty sleeping despite accepting seroquel 50mg HS. Patient requesting an increase in seroquel. Will d/c seroquel 50mg HS and will order seroquel 100mg HS. Patient also educated on the importance of proper sleep hygiene. Patient satisifed and receptive to feedback. Benefits and side effects discussed. Verbal consent given. Total face to face time:: 20 Mental Status Exam - Mental Status Exam Alert and Oriented to: Time, Place, Person Cognitive Function: Good Patient Appearance: Well Groomed Mood: Euthymic Affect: Appropriate Patient Behavior: Fatigued Speech Pattern: Appropriate Voice Loudness: Normal Thought Process: Goal Oriented Thought Disorder: Not Present Hallucinations: Denies Suicidal Ideation: Denies Homicidal Ideation: Denies Insight/Judgement: Poor Sleep: Poorly Appetite: Fair Muscle strength/Tone: Normal Gait/Station: Normal Psychiatric Treatment Plan - Problem List (1) Opioid dependence with withdrawal Current Visit: Yes (2) Substance-induced sleep disorder Current Visit: Yes (3) Cocaine dependence Current Visit: Yes Qualifiers: Substance use status: uncomplicated Qualified Code(s): F14.20 - Cocaine dependence, uncomplicated (4) PTSD (post-traumatic stress disorder) Current Visit: Yes (5) Substance induced mood disorder Current Visit: Yes
--- NOTE | 2018-12-20 17:05 | PN ---
[facility] CIWA - CIWA Score Nausea/Vomitin-Mild Nausea/No Vomiting Muscle Tremors: 3 Anxiety: 3 Agitation: 2 Paroxysmal Sweats: 2 Orientation: 0-Oriented Tacttile Disturbances: 0-None Auditory Disturbances: 0-None Visual Disturbances: 0-None Headache: 0-None Present CIWA-Ar Total Score: 11 S COWS - Scale Resting Pulse: 0= [place] 80 or Below Sweatin= Chills/Flushing Restless Observation: 3= Extraneous Movement Pupil Size: 0= Normal to Room Light Bone or Joint Aches: 1= Mild Discomfort Runny Nose/ Eye Tearin= None GI Upset > 30mins: 2= Nausea/Diarrhea Tremor Observation of Outstretched Hands: 2= Slight Tremor Visible Yawning Observation: 0= None Anxiety or Irritability: 2=Irritable/Anxious Goose Flesh Skin: 0=Smooth Skin COWS Score: 11 [facility] Progress Note (SOAP) Subjective: Sweating, chills, interrupted sleep Objective: 12/20/18 17:04 Last Vital Signs Temp Pulse Resp BP Pulse Ox 98.2 F 69 18 113/57 L 12/20/18 13:27 12/20/18 13:27 12/20/18 13:27 12/20/18 13:27 Laboratory Tests 12/18/18 12/18/18 12/18/18 13:15 13:15 13:15 WBC 9.5 RBC 3.99 Hgb 12.5 Hct 38.4 MCV 96.2 H MCH 31.4 MCHC 32.6 RDW 14.4 Plt Count 318 MPV 8.3 Sodium 141 Potassium 4.2 Chloride 105 Carbon Dioxide 28 Anion Gap 7 L BUN 18.8 H Creatinine 0.8 Est GFR (CKD-EPI)AfAm 111.48 Est GFR (CKD-EPI)NonAf 96.19 Random Glucose 82 Calcium 8.6 Total Bilirubin 0.2 AST 20 ALT 33 Alkaline Phosphatase 115 Total Protein 7.2 Albumin 3.6 RPR Titer Nonreactive HIV 1&2 Ag/Ab, 4th Gen HIV 1&2 Antibody Screen HIV P24 Antigen 12/18/18 12/19/18 13:15 05:50 WBC RBC Hgb Hct MCV MCH MCHC RDW Plt Count MPV Sodium Potassium Chloride Carbon Dioxide Anion Gap BUN Creatinine Est GFR (CKD-EPI)AfAm Est GFR (CKD-EPI)NonAf Random Glucose Calcium Total Bilirubin AST ALT Alkaline Phosphatase Total Protein Albumin RPR Titer HIV 1&2 Ag/Ab, 4th Gen Non reactive HIV 1&2 Antibody Screen Negative HIV P24 Antigen Negative Labs reviewed Assessment: 12/20/18 17:04 Withdrawal sxs Plan: Continue detox Encouraged PO water intake
[2018-12-20] MEDS: hydrOXYzine PAMOATE 25 MG CAPSULE (FP) PO PRN (18:20)
[2018-12-20] MEDS: QUEtiapine FUMARATE 50 MG TABLET PO SCH (21:25)
[2018-12-20] MEDS: THIAMINE HCL 100 MG TABLET (FP) PO SCH (21:27)
[2018-12-20] MEDS: MELATONIN 5 MG TABLETS PO PRN (21:27)
[2018-12-21] MEDS ORDERED: chlordiazePOXIDE HCL 10 MG CAPSULE PO PRN
[2018-12-21] MEDS: chlordiazePOXIDE HCL 10 MG CAPSULE PO SCH ×3 (06:23→20:51)
[2018-12-21] MEDS ORDERED: METHADONE (DETOX) 10 MG, METHADONE (DETOX) 5 MG PO ONE (10:00)
[2018-12-21] MEDS: AMOX TR/POT CLAV 500MG/125MG TABLETS (FP) PO SCH ×2 (10:25→17:30)
[2018-12-21] MEDS ORDERED: METHADONE HCL 10 MG TABLET (FOR DETOX USE ONLY) ONE (10:27)
[2018-12-21] MEDS ORDERED: METHADONE HCL 5 MG TABLET (FOR DETOX USE ONLY) ONE (10:27)
[2018-12-21] MEDS: SERTRALINE HCL 50 MG TABLET (FP) PO SCH (10:28)
[2018-12-21] MEDS: METHOCARBAMOL 500 MG TABLET PO PRN ×2 (10:28→17:32)
[2018-12-21] MEDS: PRENATAL VITAMINS W/ FOLIC ACID TABLET (FP) PO SCH (10:28)
[2018-12-21] MEDS: hydrOXYzine PAMOATE 25 MG CAPSULE (FP) PO PRN (12:38)
--- NOTE | 2018-12-21 14:01 | PN ---
[facility] CIWA - CIWA Score Nausea/Vomitin-No Nausea/No Vomiting Muscle Tremors: 2 Anxiety: 1-Mildly Anxious Agitation: 1-Slight > Activity Paroxysmal Sweats: 1-Minimal Palms Moist Orientation: 0-Oriented Tacttile Disturbances: 0-None Auditory Disturbances: 0-None Visual Disturbances: 0-None Headache: 0-None Present CIWA-Ar Total Score: 5 S COWS - Scale Resting Pulse: 0= [place] 80 or Below Sweatin= No chills or Flushing Restless Observation: 1= Difficult to Sit Still Pupil Size: 0= Normal to Room Light Bone or Joint Aches: 1= Mild Discomfort Runny Nose/ Eye Tearin= None GI Upset > 30mins: 0= None Tremor Observation of Outstretched Hands: 0= None Yawning Observation: 0= None Anxiety or Irritability: 0= None Goose Flesh Skin: 0=Smooth Skin COWS Score: 2 S Progress Note (SOAP) Subjective: feeling better anxiety restless Objective: 12/21/18 14:00 Vital Signs Temperature 98.1 F 12/21/18 13:10 Pulse Rate 64 12/21/18 13:10 Respiratory Rate 18 12/21/18 13:10 Blood Pressure 111/52 L 12/21/18 13:10 O2 Sat by Pulse Oximetry (%) aaox3 ambulating no acute distress Assessment: 12/21/18 14:01 withdrawal sx Plan: continue detox
[2018-12-21] MEDS: MELATONIN 5 MG TABLETS PO PRN (20:50)
[2018-12-21] MEDS: QUEtiapine FUMARATE 50 MG TABLET PO SCH (21:34)
[2018-12-22] MEDS: THIAMINE HCL 100 MG TABLET (FP) PO SCH ×2 (00:12→21:39)
[2018-12-22] MEDS ORDERED: chlordiazePOXIDE HCL 10 MG CAPSULE PO ONE (05:00)
[2018-12-22] MEDS: AMOX TR/POT CLAV 500MG/125MG TABLETS (FP) PO SCH ×2 (09:12→17:19)
[2018-12-22] MEDS ORDERED: METHADONE HCL 10 MG TABLET (FOR DETOX USE ONLY) PO ONE (10:00)
[2018-12-22] MEDS: SERTRALINE HCL 50 MG TABLET (FP) PO SCH (10:43)
[2018-12-22] MEDS: PRENATAL VITAMINS W/ FOLIC ACID TABLET (FP) PO SCH (10:43)
[2018-12-22] MEDS: METHOCARBAMOL 500 MG TABLET PO PRN ×2 (10:44→17:19)
--- NOTE | 2018-12-22 11:38 | PN ---
[facility] CIWA - CIWA Score Nausea/Vomitin-No Nausea/No Vomiting Muscle Tremors: 2 Anxiety: 0-No Anxiety, at Ease Agitation: 1-Slight > Activity Paroxysmal Sweats: No Perspiration Orientation: 0-Oriented Tacttile Disturbances: 0-None Auditory Disturbances: 0-None Visual Disturbances: 0-None Headache: 0-None Present CIWA-Ar Total Score: 3 S COWS - Scale Resting Pulse: 0= [place] 80 or Below Sweatin= No chills or Flushing Restless Observation: 1= Difficult to Sit Still Pupil Size: 0= Normal to Room Light Bone or Joint Aches: 1= Mild Discomfort Runny Nose/ Eye Tearin= None GI Upset > 30mins: 0= None Tremor Observation of Outstretched Hands: 0= None Yawning Observation: 0= None Anxiety or Irritability: 1=Feels Anxious/Irritable Goose Flesh Skin: 0=Smooth Skin COWS Score: 3 S Progress Note (SOAP) Subjective: restless anxiety Objective: 12/22/18 11:37 Vital Signs Temperature 97.5 F L 12/22/18 09:29 Pulse Rate 68 12/22/18 09:29 Respiratory Rate 18 12/22/18 09:29 Blood Pressure 90/55 L 12/22/18 09:29 O2 Sat by Pulse Oximetry (%) aaox3 ambulating no acute distress Assessment: 12/22/18 11:37 mild withdrawal sx Plan: continue detox d/c in am
[2018-12-22] MEDS: IBUPROFEN 400 MG TABLET (FP) PO PRN (14:42)
[2018-12-22] MEDS: QUEtiapine FUMARATE 50 MG TABLET PO SCH (21:40)
[2018-12-22] MEDS: MELATONIN 5 MG TABLETS PO PRN (21:40)
[2018-12-23] MEDS ORDERED: METHADONE HCL 5 MG TABLET (FOR DETOX USE ONLY) PO ONE (06:00)
[2018-12-23 07:37] VITALS: BP 97/64; PULSE 61; TEMP 97.5
--- NOTE | 2018-12-23 09:17 | DS ---
[facility] Detox Discharge Summary Admission Date: 12/18/18 Discharge Date: 12/23/18 - History Present History: Alcohol Dependence, Cocaine Dependence, Opioid Dependence - Physical Exam Results Vital Signs: Vital Signs Temperature 97.5 F L 12/23/18 07:37 Pulse Rate 61 12/23/18 07:37 Respiratory Rate 18 12/23/18 07:37 Blood Pressure 97/64 12/23/18 07:37 O2 Sat by Pulse Oximetry (%) Pertinent Admission Physical Exam Findings: pt arrived in withdrawals Vital Signs Temperature 97.5 F L 12/23/18 07:37 Pulse Rate 61 12/23/18 07:37 Respiratory Rate 18 12/23/18 07:37 Blood Pressure 97/64 12/23/18 07:37 O2 Sat by Pulse Oximetry (%) Laboratory Tests 12/18/18 12/18/18 12/18/18 11:45 13:15 13:15 WBC 9.5 RBC 3.99 Hgb 12.5 Hct 38.4 MCV 96.2 H MCH 31.4 MCHC 32.6 RDW 14.4 Plt Count 318 MPV 8.3 Sodium 141 Potassium 4.2 Chloride 105 Carbon Dioxide 28 Anion Gap 7 L BUN 18.8 H Creatinine 0.8 Est GFR (CKD-EPI)AfAm 111.48 Est GFR (CKD-EPI)NonAf 96.19 Random Glucose 82 Calcium 8.6 Total Bilirubin 0.2 AST 20 ALT 33 Alkaline Phosphatase 115 Total Protein 7.2 Albumin 3.6 POC Urine HCG, Qual Negative RPR Titer HIV 1&2 Ag/Ab, 4th Gen HIV 1&2 Antibody Screen HIV P24 Antigen 12/18/18 12/18/18 12/19/18 13:15 13:15 05:50 WBC RBC Hgb Hct MCV MCH MCHC RDW Plt Count MPV Sodium Potassium Chloride Carbon Dioxide Anion Gap BUN Creatinine Est GFR (CKD-EPI)AfAm Est GFR (CKD-EPI)NonAf Random Glucose Calcium Total Bilirubin AST ALT Alkaline Phosphatase Total Protein Albumin POC Urine HCG, Qual RPR Titer Nonreactive HIV 1&2 Ag/Ab, 4th Gen Non reactive HIV 1&2 Antibody Screen Negative HIV P24 Antigen Negative pt is aaox3 ambulating no acute distress no s/s of withdrawals - Treatment Hospital Course: Detox Protocol Followed, Detoxed Safely, Responded well, Discharged Condition Good, Rehab Referral Accepted Patient has Accepted a Rehab Referral to: pt referred to inpatient rehab - Medication Discharge Medications: Ambulatory Orders Sertraline HCl [Zoloft -] 50 mg PO DAILY 06/21/18 Quetiapine Fumarate [Seroquel -] 100 mg PO HS #30 tablet 07/01/18 traZODone HCL [Desyrel -] 50 mg PO HS #30 tablet 07/01/18 Amox-Tr/K Cl [Augmentin 500-125mg Tablet -] 1 tab PO BID@0800,1730 #2 tablet - Diagnosis (1) Opioid dependence with withdrawal Current Visit: Yes Status: Chronic (2) Substance induced mood disorder Current Visit: Yes Status: Acute (3) Substance-induced sleep disorder Current Visit: Yes Status: Acute (4) Cocaine dependence Current Visit: Yes Status: Chronic Qualifiers: Substance use status: uncomplicated Qualified Code(s): F14.20 - Cocaine dependence, uncomplicated (5) PTSD (post-traumatic stress disorder) Current Visit: Yes Status: Chronic (6) Alcohol dependence with uncomplicated withdrawal Current Visit: Yes Status: Chronic (7) Insomnia Current Visit: No Status: Acute (8) Nicotine dependence Current Visit: Yes Status: Acute Qualifiers: Nicotine product type: cigarettes Substance use status: uncomplicated Qualified Code(s): F17.210 - Nicotine dependence, cigarettes, uncomplicated (9) Opioid dependence Current Visit: Yes Status: Chronic Qualifiers: Substance use status: uncomplicated Qualified Code(s): F11.20 - Opioid dependence, uncomplicated (10) Substance induced mood disorder Current Visit: No Status: Acute (11) Anxiety and depression Current Visit: No Status: Chronic (12) Cocaine dependence Current Visit: Yes Status: Chronic Qualifiers: Substance use status: uncomplicated Qualified Code(s): F14.20 - Cocaine dependence, uncomplicated (13) Depressive disorder Current Visit: No Status: Chronic (14) MDD (major depressive disorder) Current Visit: No Status: Chronic Qualifiers: Major depression episode severity: unspecified (15) Osteoarthritis of both knees Current Visit: No Status: Chronic Qualifiers: Osteoarthritis type: unspecified Qualified Code(s): M17.0 - Bilateral primary osteoarthritis of knee (16) History of pulmonary embolism Current Visit: No Status: Resolved (17) MDD (major depressive disorder) Current Visit: No Status: Ruled-out - AMA Did Patient Leave Against Medical Advice: No
--- NOTE | 2018-12-23 11:08 | PN ---
[facility] Progress Note Note: Patient is discharged today. Scripts for 30 days supply of medications(Zoloft 50 mg/day, Seroquel 100 mg/hs) are electronically transmitted to [facility] at [address] [place], [place] [id number]
== END 2018-12-23 08:39 | disposition home or self-care (01) | DRG 773 ==
LOC: YASAS 10:26 → Y6N 13:15
PROVIDERS: ADMIT Allergy & Immunology; ATTEND Allergy & Immunology
PROC: HZ2ZZZZ Detoxification Services for Substance Abuse Treatment (ICD-10-PCS; principal; 2018-12-18)
DX: F11.23 Opioid dependence with withdrawal (principal); F10.230 Alcohol dependence with withdrawal, uncomplicated; F14.20 Cocaine dependence, uncomplicated; F17.210 Nicotine dependence, cigarettes, uncomplicated; F19.24 Other psychoactive substance dependence with psychoactive substance-induced mood disorder; F19.282 Other psychoactive substance dependence with psychoactive substance-induced sleep disorder; F43.10 Post-traumatic stress disorder, unspecified; F41.9 Anxiety disorder, unspecified; F32.9 Major depressive disorder, single episode, unspecified; G47.00 Insomnia, unspecified; M17.0 Bilateral primary osteoarthritis of knee; K02.9 Dental caries, unspecified; Z91.410 Personal history of adult physical and sexual abuse; Z62.810 Personal history of physical and sexual abuse in childhood; Z86.711 Personal history of pulmonary embolism; Z91.013 Allergy to seafood
CPT/HCPCS: 36415; 80053; 81025; 85027; 86593; 87389; Q2036

== ENCOUNTER 2019-02-23 23:04 | Inpatient (IN) | payer OTHER ==
[2019-02-24 00:16] VITALS: BMI 25.2
--- NOTE | 2019-02-24 00:26 | HP ---
COWS - Scale Resting Pulse: 0= [place] 80 or Below Sweatin=Flushed/Facial Moisture Restless Observation: 1= Difficult to Sit Still Pupil Size: 0= Normal to Room Light Bone or Joint Aches: 4=Acute Joint/Muscle Pain Runny Nose/ Eye Tearin= Runny Nose/Eyes GI Upset > 30mins: 3= Vomiting/Diarrhea (bvomiting x 1, diarrhea x 2.) Tremor Observation: 2= Slight Tremor Visible Yawning Observation: 0= None Anxiety or Irritability: 2=Irritable/Anxious Goose Flesh Skin: 3=Piloerection COWS Score: 19 CIWA Score - Admission Criteria [facility] Guidelines: Admission for Medically Managed Detox: Requires at least one of the followin. CIWA greater than 12 2. Seizures within the past 24 hours 3. Delirium tremens within the past 24 hours 4. Hallucinations within the past 24 hours 5. Acute intervention needed for co occurring medical disorder 6. Acute intervention needed for co occurring psychiatric disorder 7. Severe withdrawal that cannot be handled at a lower level of care (continued vomiting, continued diarrhea, abnormal vital signs) requiring intravenous medication and/or fluids 8. Admitting History and Physical - Past Medical History ...LMP: 12/04/18 - Smoking History Smoking history: Current every day smoker Have you smoked in the past 12 months: Yes Aproximately how many cigarettes per day: 20 - Alcohol/Substance Use Hx Alcohol Use: Yes (1-2pints) Admission [facility] Chief Complaint: Heroin withdrawal symptoms Allergies/Adverse Reactions: Allergies Allergy/AdvReac Type Severity Reaction Status Date / Time Fish Containing Products Allergy Severe Difficulty Verified 02/23/19 23:17 Breathing No Known Drug Allergies Allergy Verified 12/18/18 10:53 History of Present Illness: 33 years old female with 2 years of heroin dependence is seeking admission to detox. Patient reports that her last drink was on 02/22/2019. Her alcohol level is 0.000. She reports medical history of Pulmonary embolism, seizure and Osteoarthritis and Psych. history of PTSD, borderline personality disorder, depression, anxiety and insomnia. She reports suicide attempts in 2002, 2006 and 2009. She denies suicidal ideation at this time. Exam Limitations: No Limitations - Ebola screening Have you traveled outside of the country in the last 21 days: No (N) Have you had contact with anyone from an Ebola affected area: No Do you have a fever: No - Review of Systems Constitutional: Malaise, Night Sweats, Changes in sleep EENT: reports: Nose Congestion Respiratory: reports: No Symptoms reported Cardiac: reports: No Symptoms Reported GI: reports: Diarrhea, Nausea, Poor Appetite, Poor Fluid Intake, Vomiting, Abdominal cramping : reports: No Symptoms Reported Musculoskeletal: reports: Back Pain, Other (knee pain) Neuro: reports: Tremors Endocrine: reports: No Symptoms Reported Hematology: reports: No Symptoms Reported Psychiatric: reports: Mood/Affect Appropiate, Orientated x3, Anxious, Depressed Other Systems: Reviewed and Negative Patient History - Patient Medical History Hx Anemia: No Hx Asthma: No Hx Chronic Obstructive Pulmonary Disease (COPD): No Hx Cancer: No Hx Cardiac Disorders: Yes (PE) Hx Congestive Heart Failure: No Hx Hypertension: No Hx Hypercholesterolemia: No Hx Pacemaker: No HX Cerebrovascular Accident: No Hx Seizures: Yes (Not on medication) Hx Dementia: No Hx Diabetes: No Hx Gastrointestinal Disorders: No Hx Liver Disease: No Hx Genitourinary Disorders: No Hx Sexually Transmitted Disorders: No Hx Renal Disease (ESRD): No Hx Thyroid Disease: No Hx Human Immunodeficiency Virus (HIV): No (Negative 03/28) Hx Hepatitis C: No Hx Depression: Yes Hx Suicide Attempt: Yes (Pt tried to overdose in 2002, 2006, 2009. Denies suicidal ideation at this ) Hx Bipolar Disorder: No Hx Schizophrenia: No - Patient Surgical History Past Surgical History: No Hx Neurologic Surgery: No Hx Cataract Extraction: No Hx Cardiac Surgery: No Hx Lung Surgery: No (HISTORY OF PULMONARY EMBOLISM 2002) Hx Breast Surgery: No Hx Breast Biopsy: No Hx Abdominal Surgery: No Hx Appendectomy: No Hx Cholecystectomy: No Hx Genitourinary Surgery: No Hx Section: No Hx Orthopedic Surgery: Yes (RIGHT FEMORAL FRACTURE 1991at age of 65 years old) Hx Hysterectomy: No Anesthesia Reaction: No - PPD History Previous Implant?: Yes Documented Results: Negative w/proof Implanted On Prior [facility] Admission?: Yes Date: 12/06/17 Results: 0mm PPD to be Administered?: Yes - Reproductive History Patient is a Female of Child Bearing Age (11 -55 yrs old): Yes Last Menstrual Period: 02/14/19 Patient : No - Smoking Cessation Smoking history: Current every day smoker Have you smoked in the past 12 months: Yes Aproximately how many cigarettes per day: 10 Cigars Per Day: 0 Hx Chewing Tobacco Use: No Initiated information on smoking cessation: Yes 'Breaking Loose' booklet given: 02/24/19 - Substance & Tx. History Hx Substance Use: Yes Substance Use Type: Cocaine, Marijuana, Opiates Hx Substance Use Treatment: Yes ([facility]) - Substances abused Heroin Substance route: Inhalation Frequency: Daily Amount used: 20 BAGS Age of first use: 22 Date of last use: 02/23/19 Cocaine Substance route: Inhalation Frequency: 1-2 times per week Amount used: $20 Age of first use: 18 Date of last use: 02/21/19 Alcohol Substance route: Oral Frequency: Daily Amount used: 1-2 pints of liquor Age of first use: Date of last use: 02/22/19 Admission Physical Exam [facility] - Vital Signs Vital Signs: Vital Signs - 24 hr 02/23/19 23:28 Temperature 99.1 F Pulse Rate 76 Respiratory 16 Rate Blood Pressure 123/81 - Physical General Appearance: Yes: Moderate Distress, Tremorous, Irritable, Anxious HEENTM: Yes: Within Normal Limits Respiratory: Yes: Lungs Clear, Normal Breath Sounds, No Respiratory Distress Neck: Yes: Supple Breast: Yes: Breast Exam Deferred Cardiology: Yes: Regular Rhythm, Regular Rate Abdominal: Yes: Normal Bowel Sounds, Soft Genitourinary: Yes: Within Normal Limits Back: Yes: Normal Inspection Musculoskeletal: Yes: Within Normal Limits Extremities: Yes: Tremors Neurological: Yes: Within Normal Limits, Alert, Normal Mood/Affect Integumentary: Yes: Warm Lymphatic: Yes: Within Normal Limits - Diagnostic (1) Nicotine dependence Current Visit: Yes Status: Chronic Qualifiers: Nicotine product type: cigarettes Substance use status: uncomplicated Qualified Code(s): F17.210 - Nicotine dependence, cigarettes, uncomplicated (2) Cocaine dependence Current Visit: Yes Status: Chronic Qualifiers: Substance use status: uncomplicated Qualified Code(s): F14.20 - Cocaine dependence, uncomplicated (3) Opioid dependence with withdrawal Current Visit: Yes Status: Acute (4) Osteoarthritis of both knees Current Visit: Yes Status: Chronic Qualifiers: Osteoarthritis type: unspecified Qualified Code(s): M17.0 - Bilateral primary osteoarthritis of knee (5) History of pulmonary embolism Current Visit: No Status: Resolved (6) Seizure Current Visit: No Status: Resolved Cleared for Admission [facility] - Detox or Rehab [facility] Level of Care: Medically Managed Detox Regimen/Protocol: Methadone Claeared for Rehab Admission: No Breathalyzer - Breathalyzer Breathalyzer: 0 POC Urine test - Test device test lot number: [id number] Expiration date: 11/08/19 - Control test control: Yes Urine Drug Screen - Test Device Lot number: [id number] Expiration date: 10/07/20 - Control Is test valid?: Yes - Results Drug screen NEGATIVE: No Urine drug screen results: THC-Marijuana, KIKE-Cocaine, MOP-Opiates, BZO- Benzodiazepines Inpatient Rehab Admission - Rehab Decision to Admit Inpatient rehab admission?: No
[2019-02-24] MEDS ORDERED: cloNIDine HCL 0.1 MG TABLET PO PRN (00:47)
[2019-02-24] MEDS ORDERED: MENTHOL/PHENOL 1 EACH UD MM PRN (00:47)
[2019-02-24] MEDS ORDERED: MAG HYDROX/AL HYDROX/SIMETH 30 ML UNIT-DOSE CUP PO PRN (00:47)
[2019-02-24] MEDS ORDERED: ACETAMINOPHEN 325 MG TABLET (FP) PO PRN (00:47)
[2019-02-24] MEDS ORDERED: NICOTINE POLACRILEX 2 MG GUM BUC PRN (00:47)
[2019-02-24] MEDS ORDERED: MAGNESIUM HYDROX 2400MG/30ML ORAL SUSPENSION 30 ML CUP PO PRN (00:47)
[2019-02-24] MEDS ORDERED: MAGNESIUM CITRATE 300 ML BOTTLE PO PRN (00:47)
[2019-02-24] MEDS ORDERED: METHADONE HCL 10 MG TABLET (FOR DETOX USE ONLY) PO ONE (02:30)
[2019-02-24] MEDS: hydrOXYzine PAMOATE 25 MG CAPSULE (FP) PO PRN ×2 (10:18→19:23)
[2019-02-24] MEDS: PRENATAL VITAMINS W/ FOLIC ACID TABLET (FP) PO SCH (10:19)
[2019-02-24] MEDS: IBUPROFEN 400 MG TABLET (FP) PO PRN ×2 (10:19→22:23)
[2019-02-24] MEDS: NICOTINE 21 MG/24 HOURS TOPICAL PATCH TD SCH (10:20)
[2019-02-24] MEDS: METHOCARBAMOL 500 MG TABLET PO PRN ×2 (12:22→19:23)
--- NOTE | 2019-02-24 12:24 | EKG ---
Test Reason : Blood Pressure : / mmHG Vent. Rate : 062 BPM Atrial Rate : 062 BPM P-R Int : 132 ms QRS Dur : 086 ms QT Int : 384 ms P-R-T Axes : 048 061 034 degrees QTc Int : 389 ms NORMAL SINUS RHYTHM WITH SINUS ARRHYTHMIA NORMAL ECG WHEN COMPARED WITH ECG OF 23-JAN-2018 19:06, NO SIGNIFICANT CHANGE WAS FOUND Confirmed by EARNESTINE MONZON, GAVIN ([id number]) on 02/24/2019 12:24:06 PM Referred By: Ino Man Confirmed By:GAVIN COLBY MD
--- NOTE | 2019-02-24 12:55 | PN ---
S CIWA - CIWA Score Nausea/Vomitin Muscle Tremors: 3 Anxiety: 3 Agitation: 2 Paroxysmal Sweats: 2 Orientation: 2-Disoriented Date<2 days (date of week and day of month) Tacttile Disturbances: 1-Very Mild Itch/Numbness Auditory Disturbances: 0-None Visual Disturbances: 0-None Headache: 0-None Present CIWA-Ar Total Score: 15 BHS COWS - Scale Resting Pulse: 1= NM 81-100 Sweatin= Chills/Flushing Restless Observation: 0= Sits Still Pupil Size: 1= Pupils >than Normal Bone or Joint Aches: 1= Mild Discomfort Runny Nose/ Eye Tearin= Nasal Congestion GI Upset > 30mins: 2= Nausea/Diarrhea Tremor Observation of Outstretched Hands: 2= Slight Tremor Visible Yawning Observation: 1= 1-2x During Session Anxiety or Irritability: 2=Irritable/Anxious Goose Flesh Skin: 3=Piloerection COWS Score: 15 BHS Progress Note (SOAP) Subjective: 33 years old female admitted on 02/24/19 for opiate withdrawal sx management treating with methadone detox regimen patient reports that she drinks alcohol "every day" ciwa 15 begin librium detox regimen c/o nausea zofran 4 mg sl x 1 Objective: 02/24/19 13:05 Vital Signs Temperature 98.4 F 02/24/19 09:22 Pulse Rate 85 02/24/19 09:22 Respiratory Rate 18 02/24/19 09:22 Blood Pressure 114/82 02/24/19 09:22 O2 Sat by Pulse Oximetry (%) Laboratory Last Values POC Urine HCG, Qual Negative 02/23/19 23:38 02/24/19 13:06 lab pending Assessment: 02/24/19 13:06 alcohol and opiate withdrawal Plan: librium and methadone regimen
[2019-02-24] MEDS ORDERED: ONDANSETRON *ODT* 4 MG TABLET SL ONE (13:30)
[2019-02-24] MEDS: chlordiazePOXIDE HCL 10 MG CAPSULE PO PRN (14:28)
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
[2019-02-24] MEDS: chlordiazePOXIDE HCL 25 MG CAPSULE PO SCH (20:36)
[2019-02-24] MEDS: BISMUTH SUBSALICYLATE 524 MG/30 ML UD PO PRN (20:38)
[2019-02-24] MEDS: THIAMINE HCL 100 MG TABLET (FP) PO SCH (22:24)
[2019-02-24] MEDS: MELATONIN 5 MG TABLETS PO PRN (22:24)
[2019-02-24] MEDS: QUEtiapine FUMARATE 50 MG TABLET PO SCH (22:24)
[2019-02-25] MEDS: chlordiazePOXIDE HCL 25 MG CAPSULE PO SCH ×3 (05:54→22:24)
[2019-02-25] MEDS: ACETAMINOPHEN 325 MG TABLET (FP) PO PRN ×2 (05:56→20:23)
[2019-02-25] MEDS ORDERED: METHADONE HCL 5 MG TABLET (FOR DETOX USE ONLY) ONE (08:29)
[2019-02-25] MEDS ORDERED: METHADONE HCL 10 MG TABLET (FOR DETOX USE ONLY) ONE (08:29)
[2019-02-25 09:55] LABS: HEMOGLOBIN 12.4 GM/dL (10.7-15.3); MCH 30.7 pg (25.7-33.7); MCHC 33.4 g/dl (32.0-36.0); MEAN CELL VOLUME 91.9 fl (80-96); PLATELET COUNT 259 K/MM3 (134-434); RBC 4.03 M/mm3 (3.60-5.2); RDW 13.3 % (11.6-15.6); WHITE BLOOD COUNT 6.9 K/mm3 (4.0-10.0)
[2019-02-25] MEDS ORDERED: METHADONE (DETOX) 20 MG, METHADONE (DETOX) 5 MG PO ONE (10:00)
[2019-02-25 10:01] LABS: ALBUMIN 3.4 g/dl (3.4-5.0); BILIRUBIN,TOTAL 0.4 mg/dL (0.2-1); BLOOD UREA NITROGEN 9.6 mg/dL (7-18); CALCIUM 8.7 mg/dL (8.5-10.1); CREATININE 0.7 mg/dL (0.55-1.3); POTASSIUM 4.1 mmol/L (3.5-5.1); TOT PROT 6.8 g/dl (6.4-8.2)
[2019-02-25] MEDS: PRENATAL VITAMINS W/ FOLIC ACID TABLET (FP) PO SCH (10:29)
[2019-02-25] MEDS: SERTRALINE HCL 50 MG TABLET (FP) PO SCH (10:31)
[2019-02-25] MEDS: NICOTINE 21 MG/24 HOURS TOPICAL PATCH TD SCH (10:31)
[2019-02-25] MEDS: chlordiazePOXIDE HCL 10 MG CAPSULE PO PRN (10:31)
[2019-02-25] MEDS: IBUPROFEN 400 MG TABLET (FP) PO PRN ×2 (10:34→17:24)
[2019-02-25] MEDS: METHOCARBAMOL 500 MG TABLET PO PRN ×2 (10:34→17:24)
--- NOTE | 2019-02-25 12:12 | PN ---
S CIWA - CIWA Score Nausea/Vomitin-Mild Nausea/No Vomiting Muscle Tremors: 4-Moderate,w/Arms Extend Anxiety: 3 Agitation: 3 Paroxysmal Sweats: 2 Orientation: 0-Oriented Tacttile Disturbances: 0-None Auditory Disturbances: 0-None Visual Disturbances: 0-None Headache: 1-Very Mild CIWA-Ar Total Score: 14 S Progress Note (SOAP) Subjective: 33 years old female admitted on 02/24/19 for alcohol and opiate withdrawal sx management treating with librium and methadone detox regimen reports taking seroquel 200 mg po at home requests to be seen by a psychiatrist for dosage adjustment psychiatric referral Objective: 02/25/19 12:11 Vital Signs Temperature 98.2 F 02/25/19 09:21 Pulse Rate 59 L 02/25/19 09:21 Respiratory Rate 18 02/25/19 09:21 Blood Pressure 110/76 02/25/19 09:21 O2 Sat by Pulse Oximetry (%) Vital Signs Laboratory Last Values WBC 6.9 K/mm3 (4.0-10.0) 02/25/19 08:00 RBC 4.03 M/mm3 (3.60-5.2) 02/25/19 08:00 Hgb 12.4 GM/dL (10.7-15.3) 02/25/19 08:00 Hct 37.0 % (32.4-45.2) 02/25/19 08:00 MCV 91.9 fl (80-96) 02/25/19 08:00 MCH 30.7 pg (25.7-33.7) 02/25/19 08:00 MCHC 33.4 g/dl (32.0-36.0) 02/25/19 08:00 RDW 13.3 % (11.6-15.6) 02/25/19 08:00 Plt Count 259 K/MM3 (134-434) 02/25/19 08:00 MPV 8.0 fl (7.5-11.1) 02/25/19 08:00 Sodium 142 mmol/L (136-145) 02/25/19 08:00 Potassium 4.1 mmol/L (3.5-5.1) 02/25/19 08:00 Chloride 109 mmol/L (98-107) H 02/25/19 08:00 Carbon Dioxide 27 mmol/L (21-32) 02/25/19 08:00 Anion Gap 6 MMOL/L (8-16) L 02/25/19 08:00 BUN 9.6 mg/dL (7-18) 02/25/19 08:00 Creatinine 0.7 mg/dL (0.55-1.3) 02/25/19 08:00 Est GFR (CKD-EPI)AfAm 131.02 02/25/19 08:00 Est GFR (CKD-EPI)NonAf 113.04 02/25/19 08:00 Random Glucose 87 mg/dL (74-106) 02/25/19 08:00 Calcium 8.7 mg/dL (8.5-10.1) 02/25/19 08:00 Total Bilirubin 0.4 mg/dL (0.2-1) 02/25/19 08:00 AST 10 U/L (15-37) L 02/25/19 08:00 ALT 17 U/L (13-61) 02/25/19 08:00 Alkaline Phosphatase 67 U/L (45-117) 02/25/19 08:00 Total Protein 6.8 g/dl (6.4-8.2) 02/25/19 08:00 Albumin 3.4 g/dl (3.4-5.0) 02/25/19 08:00 POC Urine HCG, Qual Negative 02/23/19 23:38 RPR Titer Nonreactive (NONREACTIVE) 02/25/19 08:00 lab noted Assessment: 02/25/19 12:12 alcohol and opiate withdrawal Plan: librium and methadone detox regimen
--- NOTE | 2019-02-25 14:09 | PN ---
[facility] Progress Note Note: received coroner/medical examiner call as well as nurse generation manager that the patient requests psychotropic medication of seroquel 200mg patient was see by psychiatrist yesterday on 02/24/19 begin seroquel 50 mg po daily aligner typewriter call patient preferred pharmacy at [phone] patient received 30days of seroquel 100mg po daily filled on 12/2018 due to the possibility of none compliance with psychotropic medication continue seroquel 50mg as per psychiatrist evaluation on 02/24/19
[2019-02-25] MEDS: BISMUTH SUBSALICYLATE 524 MG/30 ML UD PO PRN (14:18)
[2019-02-25] MEDS: hydrOXYzine PAMOATE 25 MG CAPSULE (FP) PO PRN ×2 (17:24→22:24)
[2019-02-25] MEDS: QUEtiapine FUMARATE 50 MG TABLET PO SCH (22:24)
[2019-02-25] MEDS: THIAMINE HCL 100 MG TABLET (FP) PO SCH (22:24)
[2019-02-25] MEDS: MELATONIN 5 MG TABLETS PO PRN (22:25)
[2019-02-26] MEDS: chlordiazePOXIDE 5 MG CAPSULE PO SCH ×2 (05:56→12:30)
[2019-02-26] MEDS: IBUPROFEN 400 MG TABLET (FP) PO PRN (05:57)
[2019-02-26] MEDS ORDERED: METHADONE HCL 10 MG TABLET (FOR DETOX USE ONLY) PO ONE (10:00)
[2019-02-26] MEDS: PRENATAL VITAMINS W/ FOLIC ACID TABLET (FP) PO SCH (10:18)
[2019-02-26] MEDS: SERTRALINE HCL 50 MG TABLET (FP) PO SCH (10:18)
[2019-02-26] MEDS: NICOTINE 21 MG/24 HOURS TOPICAL PATCH TD SCH (10:18)
[2019-02-26] MEDS: chlordiazePOXIDE HCL 10 MG CAPSULE PO PRN (10:20)
--- NOTE | 2019-02-26 12:42 | PN ---
BHS COWS - Scale Resting Pulse: 1= MA 81-100 Sweatin= Chills/Flushing Restless Observation: 1= Difficult to Sit Still Pupil Size: 0= Normal to Room Light Bone or Joint Aches: 1= Mild Discomfort Runny Nose/ Eye Tearin= Nasal Congestion GI Upset > 30mins: 1= Stomach Cramp Tremor Observation of Outstretched Hands: 1= Tremor [place], Not Seen Yawning Observation: 1= 1-2x During Session Anxiety or Irritability: 1=Feels Anxious/Irritable Goose Flesh Skin: 0=Smooth Skin COWS Score: 9 BHS Progress Note (SOAP) Subjective: Pt states she id feeling mcuh better, wants to go to rehab after discharge from here, d/w pt MAT- pt prefers vivitrol. O: Vital Signs - 24 hr 02/25/19 02/25/19 02/25/19 13:31 18:00 23:47 Temperature 98.6 F 97.6 F 98.3 F Pulse Rate 72 70 82 Respiratory 18 18 16 Rate Blood Pressure 109/81 103/67 108/67 02/26/19 02/26/19 02/26/19 00:30 03:30 06:42 Temperature 97.0 F L Pulse Rate 65 Respiratory 18 18 18 Rate Blood Pressure 102/71 02/26/19 09:13 Temperature 98.3 F Pulse Rate 70 Respiratory 16 Rate Blood Pressure 104/69 Laboratory Tests 02/23/19 02/25/19 02/25/19 23:38 08:00 08:00 WBC 6.9 RBC 4.03 Hgb 12.4 Hct 37.0 MCV 91.9 MCH 30.7 MCHC 33.4 RDW 13.3 Plt Count 259 MPV 8.0 Sodium 142 Potassium 4.1 Chloride 109 H Carbon Dioxide 27 Anion Gap 6 L BUN 9.6 Creatinine 0.7 Est GFR (CKD-EPI)AfAm 131.02 Est GFR (CKD-EPI)NonAf 113.04 Random Glucose 87 Calcium 8.7 Total Bilirubin 0.4 AST 10 L ALT 17 Alkaline Phosphatase 67 Total Protein 6.8 Albumin 3.4 POC Urine HCG, Qual Negative RPR Titer 02/25/19 08:00 WBC RBC Hgb Hct MCV MCH MCHC RDW Plt Count MPV Sodium Potassium Chloride Carbon Dioxide Anion Gap BUN Creatinine Est GFR (CKD-EPI)AfAm Est GFR (CKD-EPI)NonAf Random Glucose Calcium Total Bilirubin AST ALT Alkaline Phosphatase Total Protein Albumin POC Urine HCG, Qual RPR Titer Nonreactive a/p: Opioid use disorder- continue methadone detox, MAT at discharge, rehab after detox
[2019-02-26 13:13] VITALS: BP 111/76; PULSE 121; TEMP 100
[2019-02-26] MEDS ORDERED: chlordiazePOXIDE HCL 10 MG CAPSULE PO PRN (13:22)
--- NOTE | 2019-02-26 13:26 | PN ---
Psychiatric Progress Note Vital Signs: Vital Signs Period Temp Pulse Resp BP Sys/Lucas Pulse Ox Last 24 Hr 97.0 F-100 F 65-121 16-18 102-111/67-81 Date of Session: 02/26/19 Chief Complaint:: " I need more seroquel and my trazodone. I cannot sleep at night." HPI: Patient is doing fine except for complaint of chronic insomnia. ROS: Unremarkable. Current Medications: Active Medications Generic Name Dose Route Start Last Admin Trade Name Freq PRN Reason Stop Dose Admin Acetaminophen 650 mg 02/24/19 00:47 02/25/19 20:23 Tylenol - PO 650 mg Q6H PRN Administration PAIN LEVEL 4 - 6 Acetaminophen 650 mg 02/24/19 00:47 Tylenol - PO Q6H PRN FEVER Al Hydroxide/Mg Hydroxide 30 ml 02/24/19 00:47 Mylanta Oral Suspension - PO Q6H PRN DYSPEPSIA Bismuth Subsalicylate 524 mg 02/24/19 00:47 02/25/19 14:18 Pepto-Bismol - PO 524 mg Q1H PRN Administration DIARRHEA Chlordiazepoxide HCl 10 mg 02/27/19 00:00 Librium - PO 02/27/19 23:59 Q12H PRN Signs/symptoms of Withdrawal Chlordiazepoxide HCl 10 mg 02/24/19 12:48 02/26/19 10:20 Librium - PO 02/26/19 23:59 10 mg Q8H PRN Administration Signs/symptoms of Withdrawal Chlordiazepoxide HCl 15 mg 02/26/19 05:00 02/26/19 12:30 Librium - PO 02/26/19 21:01 15 mg Q8H OMAR Administration Chlordiazepoxide HCl 10 mg 02/27/19 05:00 Librium - PO 02/27/19 21:01 Q8H OMAR Chlordiazepoxide HCl 10 mg 02/28/19 05:00 Librium - PO 02/28/19 05:01 ONCE ONE Clonidine 0.1 mg 02/24/19 00:47 02/24/19 12:22 Catapres - PO 02/26/19 23:59 0.1 mg Q4H PRN Administration Withdrawal Symptoms Eucalyptus/Menthol/Phenol/Sorbitol 1 each 02/24/19 00:47 Cepastat Lozenge - MM 03/02/19 00:47 Q4H PRN SORE THROAT Hydroxyzine Pamoate 25 mg 02/24/19 00:47 02/25/19 22:24 Vistaril - PO 03/02/19 00:47 25 mg Q6H PRN Administration For Anxiety Ibuprofen 400 mg 02/24/19 00:47 02/26/19 05:57 Motrin - PO 400 mg Q6H PRN Administration PAIN LEVEL 1 - 3 Magnesium Citrate 300 ml 02/24/19 00:47 Citroma - PO Q48H PRN CONSTIPATION Magnesium Hydroxide 30 ml 02/24/19 00:47 Milk Of Magnesia - PO PRN PRN CONSTIPATION Melatonin 5 mg 02/24/19 00:47 02/25/19 22:25 Melatonin PO 5 mg HS PRN Administration INSOMNIA Methadone HCl 10 mg/ Methadone 15 mg 02/27/19 10:00 HCl 5 mg PO 02/27/19 10:01 ONCE ONE Methadone HCl 5 mg 03/01/19 06:00 Dolophine - PO 03/01/19 06:01 ONCE@0600 ONE Methadone HCl 10 mg 02/28/19 10:00 Dolophine - PO 02/28/19 10:01 ONCE ONE Methocarbamol 500 mg 02/24/19 00:47 02/25/19 17:24 Robaxin - PO 03/02/19 00:47 500 mg Q6H PRN Administration MUSCLE SPASMS Nicotine 21 mg 02/24/19 10:00 02/26/19 10:18 Nicoderm Patch - TD Not Given DAILY OMAR Nicotine Polacrilex 2 mg 02/24/19 00:47 Nicorette Gum - BUC Q2H PRN NICOTINE REPLACEMENT RX Multivit/Folic Acid/Iron 1 tab 02/24/19 10:00 02/26/19 10:18 Vitamins (Sjr) - PO 1 tab DAILY OMAR Administration Quetiapine Fumarate 100 mg 02/26/19 22:00 Seroquel - PO HS OMAR Sertraline HCl 50 mg 02/25/19 10:00 02/26/19 10:18 Zoloft - PO 50 mg DAILY OMAR Administration Thiamine HCl 100 mg 02/24/19 22:00 02/25/19 22:24 Vitamin B1 - PO 100 mg HS OMAR Administration Trazodone HCl 50 mg 02/26/19 22:00 Desyrel - PO HS [facility] Medication(s) Change(s): Seroquel is raised to 100 mg po hs and trazodone resumed at 50 mg po hs. Side effects/benefits of both drugs are discussed with the patient. Ms Penny agrees with this plan of care. Current Side Effect: No Lab tests ordered: No Lab tests reviewed: Yes Provider note:: Chart reviewed. Patient seen. Complaint : insomnia. Request : trazodone + more seroquel. Ms Penny is observed as ambulatory, sociable, active on the unit. Well groomed. Adherent to medications. Stable mental status. Baseline. Total face to face time:: 25 Mental Status Exam - Mental Status Exam Alert and Oriented to: Time, Place, Person Cognitive Function: Good Patient Appearance: Well Groomed Mood: Anxious, Hopeful Affect: Appropriate, Normal Range Patient Behavior: Appropriate, Cooperative Speech Pattern: Clear Voice Loudness: Normal Thought Process: Goal Oriented Thought Disorder: Not Present Hallucinations: Denies Suicidal Ideation: Denies Homicidal Ideation: Denies Insight/Judgement: Fair Sleep: Poorly, Difficulty falling asleep Appetite: Good Gait/Station: Normal Psychiatric Treatment Plan - Problem List (1) Insomnia Current Visit: Yes Comment: . (2) Opioid dependence with withdrawal Current Visit: Yes Comment: . (3) Alcohol use disorder Current Visit: Yes Comment: . (4) Cocaine dependence Current Visit: Yes Qualifiers: Substance use status: uncomplicated Qualified Code(s): F14.20 - Cocaine dependence, uncomplicated Comment: . (5) Cannabis dependence Current Visit: Yes Comment: . (6) Nicotine dependence Current Visit: Yes Qualifiers: Nicotine product type: cigarettes Substance use status: uncomplicated Qualified Code(s): F17.210 - Nicotine dependence, cigarettes, uncomplicated Comment: . (7) Substance induced mood disorder Current Visit: Yes (8) PTSD (post-traumatic stress disorder) Current Visit: Yes Comment: .By history. (9) Non-compliance Current Visit: Yes
--- NOTE | 2019-02-26 13:45 | DS ---
[facility] Detox Discharge Summary Admission Date: 02/24/19 Discharge Date: 02/26/19 - History Present History: Alcohol Dependence, Opioid Dependence Pertinent Past History: Pt leaving before completing Rx_ AMA. Pt here for polysubstance use- was on methadone and librium detox. Pt has MH hx- states she has a MH appointment scheduled for 03/2019. Pt states she needs to go home. Attemped to get pt to remain here to complete detox- pt states she has many things to do. d/w pt MAT- methadone/suboxone. Pt prefers vivitrol. - Physical Exam Results Vital Signs: Vital Signs Temperature 100 F H 02/26/19 13:12 Pulse Rate 121 H 02/26/19 13:12 Respiratory Rate 16 02/26/19 13:12 Blood Pressure 111/76 02/26/19 13:12 O2 Sat by Pulse Oximetry (%) - Treatment Hospital Course: Detox Protocol Followed - Medication Discharge Medications: Ambulatory Orders Sertraline HCl [Zoloft -] 50 mg PO DAILY #30 tablet 12/23/18 Quetiapine Fumarate [Seroquel -] 200 mg PO HS 02/23/19 traZODone HCL [Desyrel -] 100 mg PO HS 02/23/19 Naloxone HCl [Narcan] 4 mg NS ASDIR PRN #1 spray 02/24/19
[2019-02-26] MEDS ORDERED: traZODone HCL 50 MG TABLET (FP) PO SCH (22:00)
[2019-02-26] MEDS ORDERED: QUEtiapine FUMARATE 100 MG TABLET (FP) PO SCH (22:00)
[2019-02-27] MEDS ORDERED: chlordiazePOXIDE HCL 10 MG CAPSULE PO PRN
[2019-02-27] MEDS ORDERED: chlordiazePOXIDE HCL 10 MG CAPSULE PO SCH (05:00)
[2019-02-27] MEDS ORDERED: METHADONE (DETOX) 10 MG, METHADONE (DETOX) 5 MG PO ONE (10:00)
[2019-02-28] MEDS ORDERED: chlordiazePOXIDE HCL 10 MG CAPSULE PO ONE (05:00)
[2019-02-28] MEDS ORDERED: METHADONE HCL 10 MG TABLET (FOR DETOX USE ONLY) PO ONE (10:00)
[2019-03-01] MEDS ORDERED: METHADONE HCL 5 MG TABLET (FOR DETOX USE ONLY) PO ONE (06:00)
== END 2019-02-26 13:50 | disposition left against medical advice (07) | DRG 770 ==
LOC: YASAS 23:04 → Y3N 02-24 01:13
PROVIDERS: ADMIT Allergy & Immunology; ATTEND Allergy & Immunology
PROC: HZ2ZZZZ Detoxification Services for Substance Abuse Treatment (ICD-10-PCS; principal; 2019-02-24)
DX: F11.23 Opioid dependence with withdrawal (principal); F10.230 Alcohol dependence with withdrawal, uncomplicated; F14.20 Cocaine dependence, uncomplicated; F12.20 Cannabis dependence, uncomplicated; F17.210 Nicotine dependence, cigarettes, uncomplicated; F19.24 Other psychoactive substance dependence with psychoactive substance-induced mood disorder; F43.10 Post-traumatic stress disorder, unspecified; G47.00 Insomnia, unspecified; M17.0 Bilateral primary osteoarthritis of knee; Z91.013 Allergy to seafood; Z86.711 Personal history of pulmonary embolism; Z91.19 Patient's noncompliance with other medical treatment and regimen; Z86.69 Personal history of other diseases of the nervous system and sense organs; Z91.5 Personal history of self-harm
CPT/HCPCS: 36415; 80053; 81025; 85027; 86593; 93005; 93010; J0735; Q0162